=== PATIENT | female | born 1970 | race Caucasian/White ===

== ENCOUNTER → 2017-03-06 | Outpatient (CLI) | payer OTHER ==
[~2017-03-06] MED LIST: ARIP10 PO; Amaryl2 MG PO; CEPH500 PO; CHOL10002 PO; CITA20 PO; DEPRESSION; ERGO400 PO; FURO20 PO; FURO40 PO; GLIM4; GLIM4 PO; HCTZ; HYDACE25S PR; HYDCHL25 PO; INSDET100; Keflex500 MG PO; LABE100 PO; LABETOLOL; LISI20; LISI20 PO; LORA1 PO; METF500; METF500 PO; METF850 PO; METO100 PO; METO100ER PO; METO50 PO; METOPROLOL PO; MULVITMINE; MULVITMINE PO; OMEP40CA12 PO; ONDA4ODT MM; PRENATAL; PROM25 PO; QUET25 PO; QUETIAPINE FUM100 MG PO; RANI150 PO; RXHYDMOR2 PO; RXONDA4ODT MM; SITA100T2; SITA100T2 PO; SOLI5 PO; SOLIFENACIN; SUCR1 PO; TRIHYD253B PO; VANLAFAXINE PO; VENL150ER PO; VENL75ER PO; VITAMIN D PO; Vitamin D400 UNI1; Zantac150 MG PO; Zithromax250 MG PO; Zofran Odt4 MG SL
== END ==
LOC: LAB EV 11:50
DX: N30.00 Acute cystitis without hematuria (principal)
CPT/HCPCS: 87077; 87086; 87147; 87186

== ENCOUNTER → 2017-05-14 | Outpatient (CLI) | payer OTHER ==
[2017-05-16 04:21] LABS: Source CERVIX/ENDOCERV
== END ==
LOC: LAB 10:11
PROVIDERS: Nurse Practitioner Family
DX: Z01.419 Encounter for gynecological examination (general) (routine) without abnormal findings (principal)
CPT/HCPCS: G0145

== ENCOUNTER → 2017-06-30 | Outpatient (CLI) | payer OTHER | END | disposition home or self-care (01) | LOC: LAB EV 11:45 → LAB SHORT 11:45 | DX: N30.01 Acute cystitis with hematuria (principal) | CPT/HCPCS: 87077; 87086; 87186 ==

== ENCOUNTER → 2017-08-18 | Outpatient (CLI) | payer OTHER | LOC: LAB SHORT 14:20 → LAB EV 14:20 | DX: R30.0 Dysuria (principal) | CPT/HCPCS: 87086 ==

== ENCOUNTER 2018-04-22 11:44 | Day surgery (SDC) | payer OTHER ==
[~2018-04-22] VITALS: Ht 170.2 cm; Wt 161.5 kg
[~2018-04-22 11:44] MED LIST changes: +QUET100 PO
--- NOTE | 2018-04-22 12:26 | NUR ---
Ambulatory in Day SurgeryPatient states colon prep results clear. History, Chart, Medications and Allergies reviewed before start of procedure.Lungs clear T/O to Auscultation. Patient confirms NPO status and agrees with scheduled surgery. Patient States Post-Procedure ride home has been arranged.
--- NOTE | 2018-04-22 13:13 | NUR ---
04/22/18 1313 Mikhail Hernandez 3-LEAD EKG REVIEWED WITH PHYSICIAN PRIOR TO START OF PROCEDURE.Patient to ENDO 1. History, Chart, Medications and Allergies reviewed before start of procedure. MONITOR INTACT WITH CONTINUOUS PULSE OXIMETRY AND INTERMITTENT BP. O2 VIA N/C INTACT THROUGHOUT SEDATION/PROCEDURE. See Anesthesia record
--- NOTE | 2018-04-22 13:59 | NUR ---
PT TO STEP. SLEEPY, WAKES TO VOICE. DENIES PAIN.
[2018-05-01 15:11] LABS: Performing Lab SYMBIODX; Test Name TISSUE BLOCK
== END 2018-04-22 22:37 | disposition home or self-care (01) ==
LOC: ORSCMMR 11:44 → ORD 13:00 → ORSCMMR 13:00
PROVIDERS: Internal Medicine Gastroenterology
PROC: 0DBN8ZX Excision of Sigmoid Colon, Via Natural or Artificial Opening Endoscopic, Diagnostic (ICD-10-PCS; principal; 2018-04-22 13:00)
PROC: 0DBK8ZX Excision of Ascending Colon, Via Natural or Artificial Opening Endoscopic, Diagnostic (ICD-10-PCS; principal; 2018-04-22 13:00)
DX: Z80.0 Family history of malignant neoplasm of digestive organs (principal); C18.7 Malignant neoplasm of sigmoid colon; D12.2 Benign neoplasm of ascending colon; K64.8 Other hemorrhoids; K64.4 Residual hemorrhoidal skin tags; I10 Essential (primary) hypertension; E11.9 Type 2 diabetes mellitus without complications; E66.01 Morbid (severe) obesity due to excess calories; Z68.43 Body mass index [BMI] 50.0-59.9, adult; Z79.899 Other long term (current) drug therapy
CPT/HCPCS: 82947; 88305; J7120

== ENCOUNTER 2018-05-14 11:57 | Day surgery (SDC) | payer OTHER ==
[~2018-05-14] VITALS: Ht 170.2 cm; Wt 160.6 kg
--- NOTE | 2018-05-14 12:50 | NUR ---
Ambulatory in Day Surgery History, Chart, Medications and Allergies reviewed before start of procedure.Patient confirms NPO status and agrees with scheduled surgery. Lungs clear T/O to Auscultation.
--- NOTE | 2018-05-14 13:50 | NUR ---
05/14/18 1350 Ana Lilia Brewer History, Chart, Medications and Allergies reviewed before start of procedure. PATIENT CONFIRMS NPO STATUS AND AGREES WITH SCHEDULED PROCEDURE. MONITOR INTACT WITH CONTINUOUS PULSE OXIMETRY AND INTERMITTENT BP. O2 VIA N/C INTACT THROUGHOUT SEDATION/PROCEDURE. 3-LEAD EKG REVIEWED WITH PHYSICIAN PRIOR TO START OF PROCEDURE. DR. PEÑA PROVIDING MAC.
--- NOTE | 2018-05-14 14:37 | NUR ---
RECIEVED PATIENT FROM ORD.BAB PATIENT S VSS SLEEPING FAMILY AT BEDSIDE
--- NOTE | 2018-05-14 15:12 | NUR ---
Discharge instructions reviewed with patient. Patient verbalizes understanding. Copy given to patient to take home. Patient States Post-Procedure ride home has been arranged. Discharged via wheelchair to private car for ride home. OPPORTUNITY TO ASK ANY QUESTIONS WHEN GOING OVER DISHCARGE INSTRUCTIONS SAJI HAD NO QUESTIONS.
== END 2018-05-14 12:00 | disposition home or self-care (01) ==
LOC: ORSCMMR 11:57
PROVIDERS: Surgery
PROC: 0DBN8ZX Excision of Sigmoid Colon, Via Natural or Artificial Opening Endoscopic, Diagnostic (ICD-10-PCS; principal; 2018-05-14 13:30)
PROC: 3E0H8GC Introduction of Other Therapeutic Substance into Lower GI, Via Natural or Artificial Opening Endoscopic (ICD-10-PCS; principal; 2018-05-14 13:30)
DX: C18.7 Malignant neoplasm of sigmoid colon (principal); K63.5 Polyp of colon; E66.01 Morbid (severe) obesity due to excess calories; Z68.43 Body mass index [BMI] 50.0-59.9, adult; E11.9 Type 2 diabetes mellitus without complications; I10 Essential (primary) hypertension; F32.9 Major depressive disorder, single episode, unspecified; Z79.84 Long term (current) use of oral hypoglycemic drugs; Z79.899 Other long term (current) drug therapy
CPT/HCPCS: 82947; 88305; J7120

== ENCOUNTER 2018-07-23 19:31 | Emergency (ER) | payer OTHER ==
[~2018-07-23] VITALS: Ht 170.2 cm; Wt 163.3 kg
[2018-07-23 20:20] LABS: BASOPHILS ABSOLUTE AUTO 0.09 K/mm3 (0.00-0.23); BASOPHILS PERCENT AUTO 1 % (0-2); EOSINOPHILS ABSOLUTE AUTO 0.25 K/mm3 (0.00-0.68); EOSINOPHILS PERCENT AUTO 2 % (0-6); Hematocrit 44.8 % (33.0-51.0); Hemoglobin 13.9 g/dL (11.5-16.0); IMMATURE GRAN ABSOLUTE AUTO 0.14 K/mm3 (0.00-0.10); IMMATURE GRAN PERCENT AUTO 1 % (0-1); LYMPHOCYTES ABSOLUTE AUTO 3.19 K/mm3 (0.84-5.20); LYMPHOCYTES PERCENT AUTO 27 % (21-46); MONOCYTES ABSOLUTE AUTO 0.99 K/mm3 (0.16-1.47); MONOCYTES PERCENT AUTO 8 % (4-13); Mean Corpuscular Volume 84 fL (80-100); Mean Platelet Volume 9.5 fL (9.1-12.4); NEUTROPHILS ABSOLUTE AUTO 7.08 K/mm3 (1.96-9.15); NEUTROPHILS PERCENT AUTO 60 % (41-73); Platelet Count 310 K/mm3 (150-400); RDW Coefficient Variation 13.5 % (11.7-14.2); RDW Standard Deviation 41.6 fL (35.1-46.3); Red Blood Cell Count 5.34 M/mm3 (3.80-5.20); White Blood Cell Count 11.74 K/mm3 (4.00-11.30)
[2018-07-23 20:44] LABS: Alanine Aminotransfer (ALT/SGP 56 U/L (12-78); Albumin, Blood 3.5 g/dL (3.4-5.0); Albumin/Globulin Ratio 0.8 (0.8-1.8); Alk Phos 99 U/L (50-136); Anion Gap 11 mmol/L (6-16); Aspartate Aminotrans (AST/SGOT 42 U/L (12-37); Bilirubin, Total 0.3 mg/dL (0.1-1.0); Blood Urea Nitrogen 10 mg/dL (8-24); Bun/Creatinine Ratio 17.9 (12.0-20.0); CO2, Blood 22 mmol/L (21-32); Calcium, Blood 8.8 mg/dL (8.5-10.1); Chloride, Blood 104 mmol/L (98-108); Creatinine, Blood 0.56 mg/dL (0.40-1.00); Globulin, Blood 4.4 g/dL (2.2-4.0); Glomerular Filtration Rate >60 (60-); Glucose, Blood 306 mg/dL (70-99); Potassium, Blood 4.2 mmol/L (3.5-5.5); Sodium, Blood 137 mmol/L (136-145); Total Protein, Blood 7.9 g/dL (6.4-8.2)
[2018-07-23 20:47] LABS: Source, Urine Clean Catch
[2018-07-23 20:54] LABS: Appearance, Urine Clear (Clear); Bilirubin, Urine Neg (Neg); Blood, Urine 2+ (Neg); Color, Urine Yellow (P-Yellow); Glucose Qualitative, Urine 4+ (Neg); Ketones, Urine 1+ (Neg); Leukocyte Esterase, Urine 1+ (Neg); Nitrite, Urine Neg (Neg); Protein, Urine 3+ (Neg); Specific Gravity, Urine 1.025 (1.003-1.022); Urobilinogen, Urine NORM (Normal)
[2018-07-23 20:55] LABS: Bacteria Many /hpf; Red Blood Cells, Urine 0-2 /hpf (0-2); Squamous Epithelial Cells Many /hpf (Few)
[2018-07-23 20:56] LABS: Mucus Light (0-Heavy)
[2018-07-23] MEDS ORDERED: METF500C PO (23:07)
[2018-07-23] MEDS ORDERED: LEVFLO500 PO (23:07)
[2018-07-23] MEDS ORDERED: Bupropion Xl150 MG PO (23:07)
== END 2018-07-24 01:32 | disposition home or self-care (01) ==
LOC: ER 19:31
PROVIDERS: Physician Assistant
DX: N39.0 Urinary tract infection, site not specified (principal); I10 Essential (primary) hypertension; Z88.8 Allergy status to other drugs, medicaments and biological substances; Z79.899 Other long term (current) drug therapy
CPT/HCPCS: 36415; 80053; 81001; 85025; 87086; 96374; 96375; 99284-25; A9270-GY; J0696; J1170; J7030

== ENCOUNTER 2018-11-19 11:57 | Day surgery (SDC) | payer OTHER ==
[~2018-11-19] VITALS: Ht 170.2 cm; Wt 158.0 kg
[~2018-11-19 11:57] MED LIST changes: +Amaryl4 MG PO; +Bupropion Xl150 MG PO; +LEVFLO500 PO; +METF500C PO
--- NOTE | 2018-11-19 13:37 | NUR ---
11/19/18 1332 Hector Salamanca History, Chart, Medications and Allergies reviewed before start of procedure.MONITOR INTACT WITH CONTINUOUS PULSE OXIMETRY AND INTERMITTENT BP.3-LEAD EKG REVIEWED WITH PHYSICIAN PRIOR TO START OF PROCEDURE.O2 VIA N/C INTACT THROUGHOUT SEDATION/PROCEDURE. Patient confirms NPO status and agrees with scheduled surgery.See Anesthesia record.
--- NOTE | 2018-11-19 14:29 | NUR ---
Patient up to Ambulate independently. Gait steady. Discharge instructions reviewed with patient. Patient verbalizes understanding. Copy given to patient to take home. Patient States Post-Procedure ride home has been arranged. Discharged via wheelchair to private car for ride home.
== END 2018-11-19 14:33 | disposition home or self-care (01) ==
LOC: ORSCMMR 11:57
PROVIDERS: Internal Medicine Gastroenterology
PROC: 0DBN8ZX Excision of Sigmoid Colon, Via Natural or Artificial Opening Endoscopic, Diagnostic (ICD-10-PCS; principal; 2018-11-19 13:15)
DX: Z85.038 Personal history of other malignant neoplasm of large intestine (principal); D12.5 Benign neoplasm of sigmoid colon; E11.9 Type 2 diabetes mellitus without complications; F32.9 Major depressive disorder, single episode, unspecified; I10 Essential (primary) hypertension; E66.01 Morbid (severe) obesity due to excess calories; Z68.43 Body mass index [BMI] 50.0-59.9, adult; Z79.899 Other long term (current) drug therapy
CPT/HCPCS: 82947; 88305; J2704; J7120

== ENCOUNTER 2020-12-03 12:57 | Inpatient (IN) | payer OTHER ==
[~2020-12-03] VITALS: Ht 170.2 cm; Wt 156.4 kg
[~2020-12-03 12:57] MED LIST changes: +ALPR.25 PO; +BASAGLAR K100 UNIT/6 SC; +DULO30 PO; +MYRBETRIQ25 MG PO; +MYRBETRIQ50 MG PO; +NYST237S MT; +PIOG15 PO; +VITAMIN D310 MC4 PO; +Xylocaine 2% In20 ML INJ
[2020-12-03 13:36] LABS: Hematocrit 43.2 % (33.0-51.0); Hemoglobin 14.2 g/dL (11.5-16.0); Mean Corpuscular HGB 28.7 pg (26.0-34.0); Mean Corpuscular HGB Conc 32.9 g/dL (31.5-36.5); Mean Corpuscular Volume 87 fL (80-100); Mean Platelet Volume 10.2 fL (9.1-12.4); Platelet Count 170 K/mm3 (150-400); RDW Coefficient Variation 14.1 % (11.7-14.2); RDW Standard Deviation 45.3 fL (35.1-46.3); Red Blood Cell Count 4.94 M/mm3 (3.80-5.20); White Blood Cell Count 8.16 K/mm3 (4.00-11.30)
[2020-12-03 13:53] LABS: Alanine Aminotransfer (ALT/SGP 27 U/L (12-78); Albumin, Blood 2.6 g/dL (3.4-5.0); Albumin/Globulin Ratio 0.5 (0.8-1.8); Alk Phos 56 U/L (50-136); Anion Gap 8 mmol/L (6-16); Aspartate Aminotrans (AST/SGOT 25 U/L (12-37); Bilirubin, Total 0.4 mg/dL (0.1-1.0); Blood Urea Nitrogen 18 mg/dL (8-24); CO2, Blood 25 mmol/L (21-32); Calcium, Blood 9.1 mg/dL (8.5-10.1); Chloride, Blood 101 mmol/L (98-108); Creatinine, Blood 0.78 mg/dL (0.40-1.00); Globulin, Blood 5.2 g/dL (2.2-4.0); Glomerular Filtration Rate >60 (60-); Glucose, Blood 335 mg/dL (70-99); Sodium, Blood 134 mmol/L (136-145); Total Protein, Blood 7.8 g/dL (6.4-8.2); Troponin I <0.015 ng/mL (0.000-0.040)
[2020-12-03 13:58] LABS: BAND PERCENT MAN 5 % (0-8); BASOPHILS PERCENT MAN 0 % (0-2); EOSINOPHILS PERCENT MAN 0 % (0-6); LYMPHOCYTES % ATYPICAL MANUAL 2 % (0-0); LYMPHOCYTES ABSOLUTE MAN 0.65 K/mm3 (0.84-5.20); LYMPHOCYTES PERCENT MAN 6 % (21-46); MONOCYTES ABSOLUTE MAN 0.73 K/mm3 (0.16-1.47); MONOCYTES PERCENT MAN 9 % (4-13); NEUTROPHILS ABSOLUTE MAN 6.77 K/mm3 (1.96-9.15); SEG NEUTROPHILS PERCENT MAN 78 % (41-73); TOTAL CELLS COUNTED 100
[2020-12-03 16:23] LABS: Source, Urine Catheter
[2020-12-03 16:25] LABS: Appearance, Urine Clear (Clear); Bilirubin, Urine Neg (Neg); Blood, Urine 1+ (Neg); Color, Urine Yellow (P-Yellow); Glucose Qualitative, Urine 4+ (Neg); Ketones, Urine 3+ (Neg); Leukocyte Esterase, Urine Neg (Neg); Nitrite, Urine Neg (Neg); Protein, Urine 3+ (Neg); Specific Gravity, Urine 1.015 (1.003-1.022); Urobilinogen, Urine NORM (Normal)
[2020-12-03 16:34] LABS: Bacteria Few /hpf; WBC Cast Rare /lpf (0)
[2020-12-03 16:35] LABS: Squamous Epithelial Cells Few /hpf (Few)
[2020-12-03 17:45] LABS: Ferritin, Serum 324 ng/mL (8-252); Lactate Dehydrogenase (Ld),Bld 346 U/L (100-240)
--- NOTE | 2020-12-03 18:48 | NUR ---
PATIENT ADMITTED TO ICU 8 WITH 15L NRB MASK IN PLACE, SATURATION 85%. PATIENT IS AWAKE, A&O, FLUSHED IN FACE, STATES "IM HOT". AFEBRILE 98.7 TEMP. LUNGS CLEAR ANTERIORLY, DECREASE BASES. RESPIRATORY HERE TO PLACE PATIENT ON HIGH FLOW, SETTINGS 65L/MIN WITH FIO2 100%, SATS 92-95%. DENIES NO SOB AT REST. VERY TIRED, HARD TO KEEP EYES OPEN. ABDOMEN LARGE/ROUND WITH BT'S. MEADE IN PLACE, PATENT WITH MARTHA COLOR. X2 PIV SITES 20G LAC AND 18G LEFT HAND. BP STABLE, RESP. RATE MID 40'S. DR CM HERE TO SEE PATIENT. WILL REPORT OFF TO NOC SHIFT.
--- NOTE | 2020-12-03 20:25 | NUR ---
ASSUMED CARE PATIENT LYING IN BED W/ DR. CM AT BEDSIDE TALKING WITH PATIENT. HFT IN PLACE @ 65L AND 90% FIO2 W/ SPO2 GREATER THAN 90% AND RR 30'S-40'S. UPON ENTERING ROOM PATIETN TRACKS TO SOUND AND IS A&O X 4. NO INFUSIONS RUNNING AT THIS TIME; 20G TO LT AC AND 22G TO LT HAND. MEADE PATENT AND DRAINING TO GRAVITY.
--- NOTE | 2020-12-03 21:52 | NUR ---
SISTER SWETAH CALLED PATIENT'S SISTER SWETHA CALLED TO PASS ON A MESSAGE. WHEN PATIENT WAS TOLD OF THIS, SHE STATED "OK, BUT I DON'T WANT MY SISTER TO HAVE ANY INFORMATION ON ME". REITERATED THAT SINCE SHE IS NOT ON THE CONSENT FOR RELEASE OF INFORMATION, WE WILL NOT BE RELEASING ANY INFORMATION REGARDING THE PATIENT TO HER.
[2020-12-04 04:03] LABS: BASOPHILS ABSOLUTE AUTO 0.01 K/mm3 (0.00-0.23); BASOPHILS PERCENT AUTO 0 % (0-2); EOSINOPHILS PERCENT AUTO 0 % (0-6); Hematocrit 41.9 % (33.0-51.0); Hemoglobin 13.6 g/dL (11.5-16.0); Mean Corpuscular HGB 28.6 pg (26.0-34.0); Mean Corpuscular HGB Conc 32.5 g/dL (31.5-36.5); Mean Corpuscular Volume 88 fL (80-100); Mean Platelet Volume 10.4 fL (9.1-12.4); Platelet Count 170 K/mm3 (150-400); RDW Coefficient Variation 14.2 % (11.7-14.2); Red Blood Cell Count 4.76 M/mm3 (3.80-5.20); White Blood Cell Count 5.84 K/mm3 (4.00-11.30)
[2020-12-04 04:10] LABS: IMMATURE GRAN ABSOLUTE AUTO 0.04 K/mm3 (0.00-0.10); IMMATURE GRAN PERCENT AUTO 1 % (0-1); LYMPHOCYTES PERCENT AUTO 10 % (21-46); MONOCYTES ABSOLUTE AUTO 0.43 K/mm3 (0.16-1.47); MONOCYTES PERCENT AUTO 7 % (4-13); NEUTROPHILS ABSOLUTE AUTO 4.76 K/mm3 (1.96-9.15); NEUTROPHILS PERCENT AUTO 81 % (41-73)
[2020-12-04 04:28] LABS: Anion Gap 13 mmol/L (6-16); Blood Urea Nitrogen 18 mg/dL (8-24); Bun/Creatinine Ratio 30.4 (12.0-20.0); CO2, Blood 22 mmol/L (21-32); Calcium, Blood 8.9 mg/dL (8.5-10.1); Chloride, Blood 102 mmol/L (98-108); Creatinine, Blood 0.59 mg/dL (0.40-1.00); Glomerular Filtration Rate >60 (60-); Glucose, Blood 346 mg/dL (70-99); Magnesium, Blood 2.2 mg/dL (1.6-2.4); Potassium, Blood 3.9 mmol/L (3.5-5.5); Sodium, Blood 137 mmol/L (136-145)
--- NOTE | 2020-12-04 07:06 | NUR ---
SHIFT SUMMARY PATIENT REMAINED ON HFT @ 65LPM AND 90-100% FIO2; CURRENTLY AT 95% FIO2. PATIENT UNABLE TO TOLERATE PRONING; BUT AGREEABLE TO HIGH SIDE REPOSITIONING. ABLE TO REPOSITION SELF WITH MINIMAL HELP FROM STAFF AND GUIDANCE. WHEN ON HIGH SIDES SPO2 REMAINES ABOVE 90%, BUT WHEN LAYING ON BACK PATIENT DESATS TO 88-90%. MEADE REMAINED PATENT W/ YELLOW CLEAR URINE OUTPUT. PATIENT REMAINED NPO T/O SHIFT EXCEPT FOR SIPS OF WATER. CBG REMAINED ELEVATED ABOVE 300 AND COVERED W/ LOW SLIDING SCALE INSULIN. REPORT GIVEN TO KRYSTINA SÁNCHEZ.
--- NOTE | 2020-12-04 10:22 | NUR ---
ADMIT: 12/03/20 DISCHARGE: TBD DX: COVID-19 CC: Monique HOLDER RESIDENCE: [facility] - [address] [place] [address]. [id number] NEXT OF KIN/CONTACTS: WILDA TRACEY, SPOUSE / PARTNER, [id number] CHELSY TRACEY, CHILD, [id number] PRIOR TO ADMIT - DME: OXYGEN 11/30/20, DM SUPPLIES, URINARY SUPPLIES, BP KIT, COMPRESSION STOCKINGS CCM: NONE HHC/HOSPICE: NONE
--- NOTE | 2020-12-04 18:25 | NUR ---
SHIFT SUMMARY: PT CONTINUES A&O AND ABLE TO MAKE NEEDS KNOWN T/OUT SHIFT. PT MAINTAINING O2 SATS >90%, CONTINUES ON HIFLO AT 65L AND 90% FIO2. PT DID TOLERATE CPAP FOR APPROX 2 HOURS TODAY WITH GOAL TO SLEEP WITH CPAP TONIGHT. PT ALSO ATTEMPTED TO PRONE, TOLERATED FOR APPROX 30-45 MINS THEN PREFERS TO LAY ON HER SIDES OR SUPINE, AIDING W/REPOSITIONING ABLE. SR CONTINUES ON MONITOR. PT MEDICATED ONCE FOR NAUSEA. INDWELLING MEADE CATHETER CONTINUES TO DRAIN CLEAR DARK YELLOW URINE TO GRAVITY. BLOOD SUGARS CONTINUE TO BE ELEVATED, SLIDING SCALE WERE CHANGED THIS AM TO HIGH CORRECTION AND LONG LASTING INSULIN CHANGED TO BID TREATMENT. PT'S MOST RECENT BLOOD SUGAR OF 367 WAS COVERED PER PROTOCOL, DR RUIZ CONSULTED, NO NEW ORDERS. AT THIS TIME, PT SITTING UP IN BED WITH FAMILY VISITING THROUGH THE EXTERIOR WINDOW. WILL CONTINUE TO MONITOR AND TREAT ACCORDINGLY UNTIL CHANGE OF SHIFT.
--- NOTE | 2020-12-04 19:00 | NUR ---
PATIENT REPORT RECEIVED FROM [facility] PATIENT AAOX4 PATIENT ON BIPAP NSR NOTED IN THE MONITOR WILL TO CONTINUED TO MONITOR
--- NOTE | 2020-12-05 07:15 | NUR ---
DR. GERARDO UPDATED ON PATIENT STATUS. INFORMED ABOUT HIGH BLOOD SUGARS. INFORMED THAT NO BM IN 3 DAYS AND NO BOWEL CARE. STATED SHE WOULD PUT ORDERS IN FOR BOWEL CARE.
--- NOTE | 2020-12-05 09:00 | NUR ---
SHIFT ASSESSMENT PATIENT ALERT AND ORIENTED X 4, AFEBRILE. PATIENT DENIES PAIN. PATIENT WEAK BUT ABLE TO MOVE ALL EXTREMITIES. PATIENT IS SCARED AND ANXIOUS AT TIMES. PATIENT HAS HAD SEVERAL OTHER FAMILY MEMBERS VERY SICK FROM COVID. LUNG SOUNDS DIMINISHED THROUGHOUT. PATIENT ON CPAP 12 AND 80% FIO2. PATIENT PLACED ON AIRVO 65 L AND 100% FIO2. PATIENT DID WELL WITH TAKING PILLS. PATIENT DESATTED TO LOWEST OF 78% ON AIRVO WITH EXTERION AND COUGHING. PATIENT HAS DRY COUGH MOSTLY BUT DOES OCCASIONALLY PRODUCE SMALL AMOUNTS OF THICK, PALE YELLOW SPUTUM. PATIENT IN SR, HR 70S TO 80S. SBP LOW 100S TO 150S. PATIENT CHANGED FROM ADA DIET TO FULL LIQUID/ ADA TO TRY AND HELP WITH DESATTING AND INCREASED WOB WITH EATING. MEADE DRAINING DARK YELLOW/ GREEN COLORED URINE. COCCYX REDDENED. IVS FLUSHED AND SALINE LOCKED. BED LOW, CALL LIGHT IN REACH. WILL CONTINUE TO MONITOR PATIENT FREQUENTLY THROUGHOUT SHIFT.
--- NOTE | 2020-12-05 12:40 | NUR ---
PATIENT AFEBRILE. HR 70S TO 90S. SBP 120S TO 130S. RR IN THE 30S. PATIENT PLACED ON AIRVO FOR LUNCH BUT DESATTED TO HIGH 70S WITH EXERTION AGAIN AND PLACED BACK ON BIPAP. BLOOD SUGAR 357; COVERAGE GIVEN. NO OTHER ACUTE CHANGES TO NOTE ON AT THIS TIME. WILL CONTINUE TO MONITOR.
--- NOTE | 2020-12-05 16:36 | NUR ---
Per chart review and visit with pt. this am, not yet appropriate for transfer from ICU. On Airvo. FiO2 80. Pt. receiving Lovenox 80 mg BID currently. Pt. has strong family support and was independent prior to admit. DM not well controlled prior to admit. Disposition pending improvement in condition and PT/OT eval. Ideally, pt. will return home with HHC and family support. Anticipate need at time of discharge to include: PT/OT eval, HHC, home O2 eval, Elisalis/Yirelto samples, potentially visit with Dr. Georges for DM management, hospital F/U within 5-7 days post discharge.
--- NOTE | 2020-12-05 16:45 | NUR ---
PATIENT AFEBRILE. DENIES PAIN. HR 80S TO 90S. SBP 1-TEENS TO 130S. PATIENT REMAINS ON SAME CPAP AND AIRVO SETTINGS. RR 30S TO 40S. DR. HOPE AWARE. PATIENT GIVEN COMPLETE BED BATH. NO OTHER ACUTE CHANGES TO NOTE ON AT THIS TIME. WILL CONTINUE TO MONITOR.
--- NOTE | 2020-12-05 18:37 | NUR ---
SHIFT SUMMARY PATIENT REMAINED ALERT AND ORIENTED X 4. AFEBRILE. PATIENT ANXIOUS ONLY OT. PRN ATIVAN GIVEN AND PATIENT REPORTED RELIEF. PATIENT HAD NO COMPLAINTS OF PAIN THIS SHIFT. PATIENT REMAINS WEAK BUT ABLE TO MOVE ALL EXTREMITIES AND HELP TO REPOSITION IN BED. PRN PRECEDEX ADDED TO EMAR IN CASE PATIENT UNABLE TO TAKE PO AND IV ATIVAN NOT HELPING WITH ANXIETY. LUNGS REMAINED DIMINISHED THROUGHOUT. PATIENT REMAINED MOSTLY ON CPAP OF 12 AND 80%-90% FIO2 AND HAD MEAL BREAKS ON AIRVO AT 65 L AND 100% FIO2. PATIENT DID DESAT TO HIGH 70S TO LOW 80S WITH EXERTION SO DID NOT GET TO REMAIN ON AIRVO FOR EXTENDED PERIODS. PATIENT MOSTLY HAD DRY COUGH BUT DID COUGH UP SMALL AMOUNT OF THICK, PALE YELLOW SPUTUM A COUPLE OF TIMES. PATIENT REMAINED IN SR, HR 70S TO 90S. SBP LOW 100S TO 150S. NO BM THIS SHIFT. PATIENT ATE A COUPLE BITES OF BREAKFAST AND ATE A LITTLE MORE AT LUNCH AND DINNER. MEADE DRAINED 2750 MLS OF DARK YELLOW/ GREEN COLORED URINE. NS INFUSING TKO. BLOOD SUGARS CONTINUE TO RUN HIGH IN 300S TO 400S. LONG ACTING INSULIN DOSE INCREASED THIS SHIFT. PATIENT RECEIVED COMPLETE BED BATH. PATIENT APPEARS COMFORTABLE AT THIS TIME. BED LOW, CALL LIGHT IN REACH. REPORT WILL [facility] MANAGER NURSE SHORTLY.
--- NOTE | 2020-12-05 19:20 | NUR ---
PATIENT REPORT RECEIVED FROM [facility] PATIENT AAOX4 PATIENT ON BIPAP NSR NOTED IN THE MONITOR WILL TO CONTINUED TO MONITOR
--- NOTE | 2020-12-05 21:45 | NUR ---
PATIENT'S FAMILY CALLED (MOTHER) THEY ARE CONCERN ABOUT DO NOT ADMINISTERED ANOTHER DOSIS OF RENDESIVIR. PATIENT REFUSE RENDESIVIR TREATMENT, CHARGE NURSE MADE AWARE (MARY KATE). WILL CONTINUED TO MONITOR
[2020-12-06 03:40] LABS: BASOPHILS ABSOLUTE AUTO 0.02 K/mm3 (0.00-0.23); BASOPHILS PERCENT AUTO 0 % (0-2); EOSINOPHILS PERCENT AUTO 0 % (0-6); Hemoglobin 13.9 g/dL (11.5-16.0); Mean Corpuscular HGB 28.5 pg (26.0-34.0); Mean Corpuscular HGB Conc 32.3 g/dL (31.5-36.5); Mean Corpuscular Volume 88 fL (80-100); Platelet Count 249 K/mm3 (150-400); RDW Coefficient Variation 14.2 % (11.7-14.2); RDW Standard Deviation 45.8 fL (35.1-46.3); Red Blood Cell Count 4.88 M/mm3 (3.80-5.20)
[2020-12-06 03:50] LABS: IMMATURE GRAN ABSOLUTE AUTO 0.05 K/mm3 (0.00-0.10); IMMATURE GRAN PERCENT AUTO 1 % (0-1); LYMPHOCYTES ABSOLUTE AUTO 0.73 K/mm3 (0.84-5.20); LYMPHOCYTES PERCENT AUTO 11 % (21-46); MONOCYTES ABSOLUTE AUTO 0.82 K/mm3 (0.16-1.47); MONOCYTES PERCENT AUTO 12 % (4-13); NEUTROPHILS ABSOLUTE AUTO 5.28 K/mm3 (1.96-9.15); NEUTROPHILS PERCENT AUTO 77 % (41-73)
[2020-12-06 04:12] LABS: Albumin, Blood 2.4 g/dL (3.4-5.0); Anion Gap 8 mmol/L (6-16); Blood Urea Nitrogen 26 mg/dL (8-24); Bun/Creatinine Ratio 45.7 (12.0-20.0); CO2, Blood 26 mmol/L (21-32); Calcium, Blood 9.7 mg/dL (8.5-10.1); Chloride, Blood 105 mmol/L (98-108); Creatinine, Blood 0.57 mg/dL (0.40-1.00); Ferritin, Serum 463 ng/mL (8-252); Glomerular Filtration Rate >60 (60-); Glucose, Blood 394 mg/dL (70-99); Magnesium, Blood 2.5 mg/dL (1.6-2.4); Phosphorus, Blood 3.5 mg/dL (2.5-4.9); Potassium, Blood 4.1 mmol/L (3.5-5.5); Sodium, Blood 139 mmol/L (136-145)
--- NOTE | 2020-12-06 09:02 | NUR ---
ASSUMED PT CARE AT 0700. PT A/OX4, PULLING OFF CPAP, PLACED ON AIRVO FOR COMFORT. PT DENIES ANY PAIN, CP, NV, NUMBNESS OR TINGLING. PT CALM. REPORTS THAT BREATHING FEELS SLIGHTLY IMPROVED SINCE YESTERDAY. PT ALSO REPORTS FATIGUE. MD AWARE OF HYPERGLYCEMIA, NEW ORDERS OBTAINED, LONG AND SHORT ACTING INSULIN GIVEN. VSS. PT PLACED BACK ON CPAP WHILE SLEEPING SHE DESATS.
--- NOTE | 2020-12-06 12:21 | NUR ---
per chart review with Dr. Sanchez, pt will need CPAP ordered when she discharges. Pt has history of KATELYN. There is no plan for d/c and pt could potentially be here for another week. ([email or web address], 12:21 PM)
--- NOTE | 2020-12-06 17:57 | NUR ---
PT A/OX4, VERY COOPERATIVE AND CALM THROUGHOUT SHIFT. PT REPORTS FEELING AN IMPROVEMENT IN HER BREATHING, ALTHOUGH SHE DOES APPEAR VERY FATIGUED AND SPENT THE MAJORITY OF THE DAY RESTING. LUNGS DIM, PT HAS HACKING COUGH THAT IS USUALLY DRY, OCASSIONALLY PRODUCTIVE OF THICK CREAMY SPUTUM. ABLE TO TITRATE PT DOWN ON AIRVO WHILE AWAKE TO 60L 80%, PT NOW ON BIPAP WHILE SLEEPING, 16/10 75%, SATS REMAIN 94% AND GREATER. PT ABLE TO TALK IN FULL SENTENCES WITHOUT DIFFICULTY, AND ASSIST WITH Q 2 HRS TURNS WITHOUT DESATURATION. DISCUSSED WITH MD SHRESTHA THAT PT CONTINUES TO BY HYPERGLYCEMIC (BG 364 AT 1600) DESPITE INCREASED DOSE OF LONG ACTING INSULIN, AND HIGH DOSE SSI. BG CHECKS CHANGED TO Q 4 HRS WITH SSI COVERAGE, PLAN TO TRANSITION TO INSULIN GTT IF HYPERGLYCEMIA PERSISTS. MD RUIZ SPOKE WITH PT AND PT'S MOM AT LENGTH REGARDING PTS CODE STATUS OF DNR, OKAY TO INTUBATE. PT AND MOM ABLE TO VERBALIZE UNDERSTANDING AT END OF CONVERSATION OF PTS CODE STATUS, AND VERIFY THAT YES, THAT IS WHAT SHE WANTS. PT TOLERATING FULL LIQUID DIET. GOOD UO. SKIN REMAINS INTACT TO COCCYX WITH FREQUENT REPOSITIONING.
--- NOTE | 2020-12-06 19:30 | NUR ---
PATIENT REPORT RECEIVED FROM [facility] PATIENT AAOX4 NSR NOTED IN THE MONITOR PATIENT ON HIG FLOW 60/70 % WILL TO CONTINUED TO VERNON
[2020-12-07 03:34] LABS: BASOPHILS ABSOLUTE AUTO 0.03 K/mm3 (0.00-0.23); BASOPHILS PERCENT AUTO 0 % (0-2); EOSINOPHILS PERCENT AUTO 0 % (0-6); Hematocrit 46.5 % (33.0-51.0); Hemoglobin 15.3 g/dL (11.5-16.0); Mean Corpuscular HGB 28.5 pg (26.0-34.0); Mean Corpuscular HGB Conc 32.9 g/dL (31.5-36.5); Mean Corpuscular Volume 87 fL (80-100); Mean Platelet Volume 9.6 fL (9.1-12.4); Platelet Count 288 K/mm3 (150-400); RDW Coefficient Variation 13.8 % (11.7-14.2); RDW Standard Deviation 44.1 fL (35.1-46.3); Red Blood Cell Count 5.36 M/mm3 (3.80-5.20); White Blood Cell Count 8.58 K/mm3 (4.00-11.30)
[2020-12-07 03:36] LABS: IMMATURE GRAN ABSOLUTE AUTO 0.22 K/mm3 (0.00-0.10); IMMATURE GRAN PERCENT AUTO 3 % (0-1); LYMPHOCYTES ABSOLUTE AUTO 0.85 K/mm3 (0.84-5.20); LYMPHOCYTES PERCENT AUTO 10 % (21-46); MONOCYTES PERCENT AUTO 12 % (4-13); NEUTROPHILS ABSOLUTE AUTO 6.48 K/mm3 (1.96-9.15); NEUTROPHILS PERCENT AUTO 76 % (41-73)
[2020-12-07 03:56] LABS: Albumin, Blood 2.6 g/dL (3.4-5.0); Anion Gap 8 mmol/L (6-16); Blood Urea Nitrogen 25 mg/dL (8-24); Bun/Creatinine Ratio 43.6 (12.0-20.0); CO2, Blood 26 mmol/L (21-32); Chloride, Blood 103 mmol/L (98-108); Creatinine, Blood 0.57 mg/dL (0.40-1.00); Glomerular Filtration Rate >60 (60-); Glucose, Blood 353 mg/dL (70-99); Magnesium, Blood 2.3 mg/dL (1.6-2.4); Phosphorus, Blood 3.7 mg/dL (2.5-4.9); Sodium, Blood 137 mmol/L (136-145)
--- NOTE | 2020-12-07 06:41 | NUR ---
PATIENT REPORT GIVEN TO THE AMBROSIO RN, PATIENR REMAIN IN STABLE CONDITONS.
--- NOTE | 2020-12-07 07:55 | NUR ---
ASSUMED PT CARE AT 0700. PT ON BIPAP 16 65% TOLERATING WELL, SATS 92% AND GREATER, PT APPEARS COMFORTABLE. SPOKE WITH MD BURDEN AND GERARDO REGARDING PT ONGOING HYPERGLYCEMIA, PLAN TO START PT ON INSULIN GTT THIS AM. RN ASKED IF PT COULD BE DEHYDRATED SECONDARY TO INCREASED H/H, PLAN TO ENCOURAGE PO FLUID INTAKE TODAY. PT CONTINUES TO BE A/OX4, COOPERATIVE, FATIGUED WITH GEN WEAKNESS. PLAN TO GET PT UP TO CHAIR TODAY.
--- NOTE | 2020-12-07 11:04 | NUR ---
Pt. remains in ICU. On AIRVO 16/10. FiO2 65. SPO2 mid-low 90s. Pt. receiving Lovenox 80 mg BID currently. Pt. has strong family support and was independent prior to admit. OHS and KATELYN of concern given patient's current condition. Pt. does not use CPAP at home despite need. Last sleep study ordered in 2018 and pt. did not complete. Plan to speak with care manager at [facility] regarding options for potential testing inpatient prior to discharge. Setting patient up with CPAP prior to discharge would be in her best interest if at all possible. DM not well controlled prior to admit. Disposition pending improvement in condition and PT/OT eval. Ideally, pt. will return home with HHC and family support. Anticipate need at time of discharge to include: PT/OT eval, HHC, home O2 eval, Elisalis/Yirelto samples, sleep study - CPAP, possible referral to Dr. Georges for ongoing DM management, hospital F/U within 5-7 days post discharge.
--- NOTE | 2020-12-07 17:45 | NUR ---
PT A/OX 4 THROUGHHOUT SHIFT, CALM AND COOPERATIVE. PT DENIES ANY INCREASING SOB, PAIN, NV, DISCOMFORT. PT AFEBRILE, ALTHOUGH C/O FEELING WARM AT TIMES. COOLING MEASURES IN PLACE. PT STARTED ON INSULIN GTT THIS MORNING SECONDARY TO ONGOING UNCONTROLLED HYPERGLYCEMIA. ABLE TO WEAN PT DOWN TO BIPAP SETTINGS 02/07, 45%; AIRVO 5OL 60% AT END OF SHIFT. PT MAINTAIN SATS 92% AND GREATER. CONTINUES TO EXPECTORATE MODERATE AMOUNT THICK PURVIS SECRETIONS. SR AND NORMOTENSIVE. PT TOLERATING ADA FL DIET WITHOUT ISSUE. GIVEN SUPPOSITORY TODAY SECONDARY TO NO BM SINCE 12/02. PT HAD BM AT END OF SHIFT. FC WITH APPROX 1 L MARTHA UO TODAY, ENCOURAGING PO FLUID INTAKE. SPOKE WITH MD CM AT 1500 SECONDARY TO PT BG CONTINUE TO BE 250-300 DESPITE INSULIN GTT TITRATED FROM 12 UNITS/HR TO 20/UNITS HR. SPOKE WITH MD OLIVIA AT 1630 INSULIN GTT AT 22 UNITS/HR, AND NO RECENT ELECTROLYTE LEVELS DRAWN. CMP ORDERED, INSTRUCTED TO CONTINUE TITRATING INSULIN GTT UP UNTIL BG LEVEL OF LESS THAN 180 ACHIEVED. PT UP TO CHAIR FOR 2.5 HOURS TODAY VIA CEILING LIFT. TOLERATED WELL. AWARE OF TRANSIENT AND MIGRATING ERYTHEMA TO EXTREMITIES. PLAN TO OPTIMIZE PT BG, DISCUSS DC FC TOMORROW NOW THAT PT ABLE TO TOLERATE ACTIVITY, GET OFF INSULIN GTT.
[2020-12-07 18:01] LABS: Alanine Aminotransfer (ALT/SGP 30 U/L (12-78); Albumin, Blood 2.7 g/dL (3.4-5.0); Albumin/Globulin Ratio 0.5 (0.8-1.8); Alk Phos 56 U/L (50-136); Anion Gap 7 mmol/L (6-16); Aspartate Aminotrans (AST/SGOT 26 U/L (12-37); Bilirubin, Total 0.4 mg/dL (0.1-1.0); Blood Urea Nitrogen 25 mg/dL (8-24); Bun/Creatinine Ratio 48.8 (12.0-20.0); CO2, Blood 28 mmol/L (21-32); Calcium, Blood 10.4 mg/dL (8.5-10.1); Chloride, Blood 105 mmol/L (98-108); Creatinine, Blood 0.51 mg/dL (0.40-1.00); Glomerular Filtration Rate >60 (60-); Glucose, Blood 233 mg/dL (70-99); Potassium, Blood 3.8 mmol/L (3.5-5.5); Sodium, Blood 140 mmol/L (136-145); Total Protein, Blood 7.7 g/dL (6.4-8.2)
--- NOTE | 2020-12-07 19:00 | NUR ---
1903 PATIENT REPORT RECEIVED FROM [facility] PATIENT AAOX4 NSR NOTED IN THE MONITOR PATIENT ON HF 50L 60% SKIN INTACT INSULIN DRIP 25 WILL TO CONTINUED TO MONITOR
--- NOTE | 2020-12-07 20:20 | NUR ---
2019 PATIENT WAS HYPOTENSIVE, 500 ML OF NS BOLUS WAS ADMINISTERED 2109 PATIENT IN STABLE CONDITIONS, BLOOD PRESSURE REMAIN STABLE MD FREEMAN CALLED
[2020-12-08 04:03] LABS: BASOPHILS ABSOLUTE AUTO 0.04 K/mm3 (0.00-0.23); BASOPHILS PERCENT AUTO 0 % (0-2); EOSINOPHILS PERCENT AUTO 0 % (0-6); Hematocrit 43.9 % (33.0-51.0); Hemoglobin 14.3 g/dL (11.5-16.0); IMMATURE GRAN ABSOLUTE AUTO 0.35 K/mm3 (0.00-0.10); IMMATURE GRAN PERCENT AUTO 4 % (0-1); LYMPHOCYTES ABSOLUTE AUTO 0.92 K/mm3 (0.84-5.20); LYMPHOCYTES PERCENT AUTO 9 % (21-46); MONOCYTES ABSOLUTE AUTO 1.27 K/mm3 (0.16-1.47); MONOCYTES PERCENT AUTO 13 % (4-13); Mean Corpuscular HGB 28.3 pg (26.0-34.0); Mean Corpuscular HGB Conc 32.6 g/dL (31.5-36.5); Mean Corpuscular Volume 87 fL (80-100); Mean Platelet Volume 9.7 fL (9.1-12.4); NEUTROPHILS ABSOLUTE AUTO 7.43 K/mm3 (1.96-9.15); NEUTROPHILS PERCENT AUTO 74 % (41-73); Platelet Count 279 K/mm3 (150-400); RDW Coefficient Variation 13.9 % (11.7-14.2); RDW Standard Deviation 44.8 fL (35.1-46.3); Red Blood Cell Count 5.05 M/mm3 (3.80-5.20); White Blood Cell Count 10.01 K/mm3 (4.00-11.30)
[2020-12-08 04:25] LABS: Albumin, Blood 2.4 g/dL (3.4-5.0); Anion Gap 5 mmol/L (6-16); Blood Urea Nitrogen 27 mg/dL (8-24); Bun/Creatinine Ratio 47.6 (12.0-20.0); CO2, Blood 28 mmol/L (21-32); Calcium, Blood 9.5 mg/dL (8.5-10.1); Chloride, Blood 106 mmol/L (98-108); Creatinine, Blood 0.57 mg/dL (0.40-1.00); Glomerular Filtration Rate >60 (60-); Glucose, Blood 187 mg/dL (70-99); Magnesium, Blood 2.1 mg/dL (1.6-2.4); Phosphorus, Blood 4.8 mg/dL (2.5-4.9); Potassium, Blood 4.2 mmol/L (3.5-5.5); Sodium, Blood 139 mmol/L (136-145)
--- NOTE | 2020-12-08 07:41 | NUR ---
[facility] Point of Care: Care assumed at 0700hr. Patient sleeping, easily roused to verbal stimuli. Alert and oriented x4. Denies pain, discomfort, SOB, or dyspnea. Currently on 11L per high-flow NC, spO2-93-94%, VSS. Peripheral IV's x2 patent and intact, but both are difficult to flush. Plan to insert Power-glide IV this morning and discontinue both peripheral IV's. Patient on insulin gtt at 15u/hr. Dr. Sanchez to room to assess patient this morning. Discussed current insulin dosing, blood glucose, and amount of insulin received in last 24hr. Dr. Sanchez instructed to stop IV insulin, and that he would write orders for subcu long-acting and sliding scale insulin. Castillo cath patent and intact, draining clear yellow urine. Call light in reach, makes needs known. Will continue to monitor.
--- NOTE | 2020-12-08 18:32 | NUR ---
Shift Summary: No significant changes throughout shift. Consulted with Dr. Sanchez multiple times r/t continued elevated blood glucose 330-350's despite increase in this mornings SC insulin. Received orders from Dr. Sanchez to maintain 24u prandial insulin and changed from AC/HS sliding scale coverage to q4hr sliding coverage. Patient continues to tolerate meals and fluids without difficulty. Castillo cath remains patent and intact, draining clear yellow urine. Peripheral IV's x2 to lt arm removed. Power-glide ST placed to ROBYN without difficulty. Denies pain or discomfort. Continues to deny dyspnea or SOB. SpO2 93-95% on 9-11L per high-flow NC. Able to assist and tolerate turns/cares in bed without difficulty. Call light in reach, makes needs known. Will continue to monitor until report to NOC shift RN.
--- NOTE | 2020-12-08 19:31 | NUR ---
ASSUMED CARE OF PT AT 1900, REPORT RECEIVED FROM MICHELLE FLAHERTY. PT AWAKE IN BED, ALERT AND ORIENTED. DENIES PAIN AND DYSPNEA AT THIS TIME. PT ON 9L HFNC, SPO2 91-92%. LUNGS CLEAR WITH DIM BASES. HR 90'S SINUS ON MONITOR. POWERGLIDE TO ROBYN CURRENTLY SALINE LOCKED. MEADE DRAINING TO GRAVITY. PT DENIES NEEDS AT THIS TIME. CALL LIGHT WITHIN REACH.
--- NOTE | 2020-12-09 06:03 | NUR ---
SHIFT SUMMARY PT REMAINS ALERT AND ORIENTED T/O SHIFT. DENIES PAIN OR SOB. LUNGS CLEAR WITH DIM BASES, CONTINUES ON 9L HFNC. SPO2 DECREASES TO 82-83% WHEN REPOSITIONING, QUICKLY RECOVERS WHEN SETTLED INTO BED. OCCASIONAL NONPRODUCTIVE COUGH. HR 70-80'S WITH OCCASIONAL PVC'S, SBP 100-115'S. TOLERATING FULL LIQUID DIET. REDNESS TO COCCYX NOTED, FOAM DRESSING IN PLACE. PT ABLE TO HELP WITH REPOSITIONING.
[2020-12-09 06:22] LABS: BASOPHILS ABSOLUTE AUTO 0.05 K/mm3 (0.00-0.23); BASOPHILS PERCENT AUTO 1 % (0-2); EOSINOPHILS ABSOLUTE AUTO 0.01 K/mm3 (0.00-0.68); EOSINOPHILS PERCENT AUTO 0 % (0-6); Hematocrit 44.3 % (33.0-51.0); Hemoglobin 14.5 g/dL (11.5-16.0); IMMATURE GRAN ABSOLUTE AUTO 0.33 K/mm3 (0.00-0.10); IMMATURE GRAN PERCENT AUTO 5 % (0-1); LYMPHOCYTES ABSOLUTE AUTO 0.79 K/mm3 (0.84-5.20); LYMPHOCYTES PERCENT AUTO 12 % (21-46); MONOCYTES ABSOLUTE AUTO 0.82 K/mm3 (0.16-1.47); MONOCYTES PERCENT AUTO 12 % (4-13); Mean Corpuscular HGB 28.3 pg (26.0-34.0); Mean Corpuscular HGB Conc 32.7 g/dL (31.5-36.5); Mean Corpuscular Volume 86 fL (80-100); Mean Platelet Volume 9.9 fL (9.1-12.4); NEUTROPHILS ABSOLUTE AUTO 4.77 K/mm3 (1.96-9.15); NEUTROPHILS PERCENT AUTO 71 % (41-73); Platelet Count 258 K/mm3 (150-400); RDW Coefficient Variation 13.6 % (11.7-14.2); RDW Standard Deviation 43.7 fL (35.1-46.3); Red Blood Cell Count 5.13 M/mm3 (3.80-5.20); White Blood Cell Count 6.77 K/mm3 (4.00-11.30)
[2020-12-09 06:37] LABS: Albumin, Blood 2.4 g/dL (3.4-5.0); Anion Gap 7 mmol/L (6-16); Blood Urea Nitrogen 25 mg/dL (8-24); Bun/Creatinine Ratio 47.6 (12.0-20.0); CO2, Blood 27 mmol/L (21-32); Calcium, Blood 9.7 mg/dL (8.5-10.1); Chloride, Blood 102 mmol/L (98-108); Creatinine, Blood 0.53 mg/dL (0.40-1.00); Glomerular Filtration Rate >60 (60-); Glucose, Blood 338 mg/dL (70-99); Magnesium, Blood 1.8 mg/dL (1.6-2.4); Phosphorus, Blood 5.5 mg/dL (2.5-4.9); Potassium, Blood 4.2 mmol/L (3.5-5.5); Sodium, Blood 136 mmol/L (136-145)
--- NOTE | 2020-12-09 08:30 | NUR ---
INITIAL ASSESSMENT PATIENT ALERT AND ORIENTED X 4, AFEBRILE. PATIENT WEAK BUT ABLE TO MOVE ALL EXTREMITIES AND TO HELP WITH REPOSITIONING IN BED. PATIENT DENIES PAIN. PATIENT SATTING 90% AND GREATER ON 9 L HF NC. LUNGS DIMINISHED IN LOWER LOBES, CRACKLES NOTED IN MICHAEL, AND EXPIRATORY WHEEZE NOTED IN RUL. PATIENT IN SR, HR IN THE 80S. SBP IN THE 1-TEENS. GI WNL. MEADE DRAINING DARK YELLOW URINE. SCATTERED BRUISES NOTED. COCCYX REDDENED. IV FLUSHED AND SALINE LOCKED; IS POSITIONAL. BED LOW, CALL LIGHT IN REACH. WILL CONTINUE TO MONITOR PATIENT FREQUENTLY THROUGHOUT SHIFT.
--- NOTE | 2020-12-09 12:00 | NUR ---
DR. HOPE INFORMED THAT PATIENT HAD 7 BEAT RUN OF ASYMPTOMATIC VTACH. NO ORDERS OBTAINED AT THIS TIME.
--- NOTE | 2020-12-09 12:00 | NUR ---
PATIENT AFEBRILE. HR AT 90. SBP IN THE 120S. PATIENT SATTING 90% AND GREATER ON 6 L NC. NO OTHER ACUTE CHANGES TO NOTE ON AT THIS TIME. WILL CONTINUE TO MONITOR.
--- NOTE | 2020-12-09 16:00 | NUR ---
PATIENT AFEBRILE. HR IN THE 80S. SBP IN THE 130S. PATIENT REMAINS ON 4 TO 6 L NC. PATIENT BACK IN BED. NO OTHER ACUTE CHANGES TO NOTE ON AT THIS TIME. WILL CONTINUE TO MONITOR.
--- NOTE | 2020-12-09 17:10 | NUR ---
SHIFT SUMMARY PATIENT REMAINED ALERT AND ORIENTED X 4, AFEBRILE. NO COMPLAINTS OF PAIN DURING SHIFT. PATIENT SMILING AND VERY PLEASANT. PATIENT DECREASED FROM 9 L HF NC TO 4 TO 6 L NC. PATIENT REMAINED IN SR, HR 80S TO 90S. SBP 1-TEENS TO 120S. PATIENT DID HAVE ASYMPTOMATIC 7 BEAT RUN OF VTACH THIS SHIFT. NO BM THIS SHIFT. DIET ADVANCED TO REGULAR/ ADA DIET THIS SHIFT. PATIENT TOLERATED WELL. MEADE DRAINED AQEQUATE AMOUNT OF DARK YELLOW COLORED URINE. NO CHANGES TO SKIN. PATIENT REPOSITIONED T/O SHIFT. PATIENT LIFTED TO RECLINER WITH CEILING LIFT. PATIENT WORKED WITH PT ONCE IN RECLINER. PATIENT RECEIVED 1 G MAG. BLOOD SUGARS RANGED FROM 279 TO 334. BED LOW, CALL LIGHT IN REACH. REPORT GIVEN TO ASSUMING NURSE.
--- NOTE | 2020-12-09 19:40 | NUR ---
ASSUMED CARE OF PT AT 1900, REPORT RECEIVED FROM SVETLANA FLAHERTY. PT RESTING IN BED, DENIES PAIN. ALERT AND ORIENTED. LUNGS CLEAR WITH DIM BASES, PT ON 6L HFNC SPO2 >90%. PT DENIES SOB, OCCASIONAL PRODUCTIVE COUGH. BT'S ACTIVE, ABD SOFT, DENIES PAIN WITH PALPATION. PT ABLE TO MOVE ALL EXTREMITIES, WEAKNESS NOTED T/O. WORKING WITH PT. MEADE PATENT AND DRAINING CLEAR YELLOW URINE TO GRAVITY. PT DENIES ANY NEEDS CURRENTLY. CALL LIGHT WITHIN REACH.
[2020-12-10 05:18] LABS: BASOPHILS ABSOLUTE AUTO 0.01 K/mm3 (0.00-0.23); BASOPHILS PERCENT AUTO 0 % (0-2); EOSINOPHILS ABSOLUTE AUTO 0.05 K/mm3 (0.00-0.68); EOSINOPHILS PERCENT AUTO 1 % (0-6); Hematocrit 44.9 % (33.0-51.0); Hemoglobin 14.6 g/dL (11.5-16.0); IMMATURE GRAN ABSOLUTE AUTO 0.64 K/mm3 (0.00-0.10); IMMATURE GRAN PERCENT AUTO 7 % (0-1); LYMPHOCYTES ABSOLUTE AUTO 0.93 K/mm3 (0.84-5.20); LYMPHOCYTES PERCENT AUTO 11 % (21-46); MONOCYTES ABSOLUTE AUTO 0.98 K/mm3 (0.16-1.47); MONOCYTES PERCENT AUTO 11 % (4-13); Mean Corpuscular HGB 28.2 pg (26.0-34.0); Mean Corpuscular HGB Conc 32.5 g/dL (31.5-36.5); Mean Corpuscular Volume 87 fL (80-100); NEUTROPHILS ABSOLUTE AUTO 6.09 K/mm3 (1.96-9.15); NEUTROPHILS PERCENT AUTO 70 % (41-73); Platelet Count 244 K/mm3 (150-400); RDW Coefficient Variation 13.7 % (11.7-14.2); RDW Standard Deviation 44.3 fL (35.1-46.3); Red Blood Cell Count 5.18 M/mm3 (3.80-5.20)
[2020-12-10 05:36] LABS: BAND PERCENT MAN 5 % (0-8); BASOPHILS PERCENT MAN 0 % (0-2); EOSINOPHILS ABSOLUTE MAN 0.08 K/mm3 (0.00-0.68); EOSINOPHILS PERCENT MAN 1 % (0-6); LYMPHOCYTES ABSOLUTE MAN 0.87 K/mm3 (0.84-5.20); LYMPHOCYTES PERCENT MAN 10 % (21-46); METAMYELOCYTE ABSOLUTE MAN 0.08 K/mm3 (0.00-0.00); METAMYELOCYTE PERCENT MAN 1 % (0-0); MONOCYTES ABSOLUTE MAN 0.87 K/mm3 (0.16-1.47); MONOCYTES PERCENT MAN 10 % (4-13); NEUTROPHILS ABSOLUTE MAN 6.78 K/mm3 (1.96-9.15); SEG NEUTROPHILS PERCENT MAN 73 % (41-73); TOTAL CELLS COUNTED 100
[2020-12-10 05:45] LABS: Albumin, Blood 2.4 g/dL (3.4-5.0); Anion Gap 4 mmol/L (6-16); Blood Urea Nitrogen 25 mg/dL (8-24); Bun/Creatinine Ratio 46.6 (12.0-20.0); CO2, Blood 30 mmol/L (21-32); Calcium, Blood 9.4 mg/dL (8.5-10.1); Chloride, Blood 100 mmol/L (98-108); Creatinine, Blood 0.54 mg/dL (0.40-1.00); Glomerular Filtration Rate >60 (60-); Glucose, Blood 283 mg/dL (70-99); Magnesium, Blood 1.8 mg/dL (1.6-2.4); Potassium, Blood 4.4 mmol/L (3.5-5.5); Sodium, Blood 134 mmol/L (136-145)
--- NOTE | 2020-12-10 06:11 | NUR ---
RN REPORT RECEIVED FROM THE NURSE IN ICU, WAS ADMITTED ON January. PATIENT TRANSFERED FROM ICU. AKSHAT IS ALERT AND ORIENTED X3. PATIENT DENIES PAIN OR ANY DISCOMFORT. PATIENT NOTED WITH SOME WEAKNESS, REMAINS ON BED REST. PATIENT WAS ADMITED FOR WORSENING SHORTNESS OF BREATH DUE TO COVID 19. MEADE CATHETER PATENT DRAINING CLEAR YELLOW URINE. PATIENT CONTINUES ON 02 AT 6L HIGH FLOW NC 02 IN THE 90s. PATIENT ON ADA DIET DUE TO DIABETES. AKSHAT HAS POWER GLIDE RIGHT UPPER ARM SALIN LOCKED. PATIENT'S SKIN IS INTACT, COCCYX AREA DRESSING IN PLACE. PATIENT'S LUNG SOUNDS CLEAR, BS+X4Q, LAST BM WAS ON THE 12/07. PATIENT IS ON BLOOD SUGAR X2 THIS SHIFT. PATIENT SLEPT ALL NIGHT NO ACUTE DISTRESS REPORTED. WILL CONTINUE TO MONITOR.
--- NOTE | 2020-12-10 18:15 | NUR ---
SHIFT SUMMARY PT AXO, PLEASANT AND COOPERATIVE WITH CARE. WORKED WITH PHYSICAL THERAPY THIS SHIFT, SEE NOTE. DESHAUN RMOANO'Radha THIS SHIFT, PT ABLE TO VOID IN BEDPAN. VITAL SIGNS STABLE. SEE CBG, MEDICATED PER EMAR. 94% ON 6L HFNC. PER PHYSICAL THERAPIST YANI Baez, PT DESAT TO 91% ON 6L WITH EXERTION. BED IN LOW POSITION, CALL LIGHT WITHIN REACH. MEPILEX TO COCCYX FOR PREVENTION.
[2020-12-11 05:27] LABS: Albumin, Blood 2.6 g/dL (3.4-5.0); Anion Gap 9 mmol/L (6-16); Blood Urea Nitrogen 30 mg/dL (8-24); Bun/Creatinine Ratio 48.4 (12.0-20.0); CO2, Blood 27 mmol/L (21-32); Calcium, Blood 9.7 mg/dL (8.5-10.1); Chloride, Blood 101 mmol/L (98-108); Creatinine, Blood 0.62 mg/dL (0.40-1.00); Glomerular Filtration Rate >60 (60-); Glucose, Blood 221 mg/dL (70-99); Magnesium, Blood 1.9 mg/dL (1.6-2.4); Phosphorus, Blood 5.8 mg/dL (2.5-4.9); Potassium, Blood 4.5 mmol/L (3.5-5.5); Sodium, Blood 137 mmol/L (136-145)
--- NOTE | 2020-12-11 06:23 | NUR ---
PATIENT IS ALERT AND ORIENTED. PATIENT DENIES PAIN, CHEST PAIN OR PALPITATION. PATIENT CONTINUES ON 6L HIGH FLOW , 02 SAT AT THE 90'S. PATIENT DENIES RESPITATORY DISTRESS OR SOB. BLOOD SUGARS AT 12AM 105, PATIENT DID NOT REQUIRE INSULIN COVERAGE, PATIENT WAS GIVEN SOME SNACKS. PATIENT'S BLODD SUGAR AT 4AM 230 PATIENT RECEIVED INSULIN COVERAGE PER SS. PATIENT AMBULATED TO THE BATHROOM WITH USE OF A HER ROLLING WALKER AND I ASSIST. PATIENTS POWERGLIDE ON HER RIGHT HAND WAS UNABLE TO FLUSH THIS MORNING DURING BLOOD DRAW AND THE PERIPHERAL LINE ON THE LEFT HAND WAS SLOW TO FLUSH. CHARGE NURSE WAS MADE AWARE. WILL CONTINUE TO MONITOR.
--- NOTE | 2020-12-11 17:09 | NUR ---
SHIFT SUMMARY 50 YEAR F ADMITTED WITH COVID A LITTLE OVER A WEEK AGO MAKING SIGNIFICANT IMPROVEMENTES. PT STARTED SHIFT ON 6L HF NC SATS 96%, TITRATED DOWN TO 3L TODAY MAINTAINING SATS >90 EVEN UP WITH ACTIVITY. PT DENIES SOB BUT DOES REPORT THAT SHE IS VERY FATIGUED AFTER ACTIVITY. DICUSSED D/C PLANS WITH DR. SHEA AND PROBABLE FOR D/C HOME TOMORROW IF PT TOLERATES 3L OR LESS OF O2. NO OTHER CHANGES TO REPORT THIS SHIFT.
[2020-12-12 05:30] LABS: Albumin, Blood 2.7 g/dL (3.4-5.0); Anion Gap 8 mmol/L (6-16); Blood Urea Nitrogen 32 mg/dL (8-24); Bun/Creatinine Ratio 49.7 (12.0-20.0); CO2, Blood 27 mmol/L (21-32); Calcium, Blood 9.9 mg/dL (8.5-10.1); Chloride, Blood 103 mmol/L (98-108); Creatinine, Blood 0.64 mg/dL (0.40-1.00); Glomerular Filtration Rate >60 (60-); Glucose, Blood 86 mg/dL (70-99); Magnesium, Blood 1.8 mg/dL (1.6-2.4); Phosphorus, Blood 6.1 mg/dL (2.5-4.9); Potassium, Blood 3.6 mmol/L (3.5-5.5); Sodium, Blood 138 mmol/L (136-145)
--- NOTE | 2020-12-12 06:16 | NUR ---
PATIENT IS ALERT AND ORIENTED X4. PATIENT AMBULATED TO THE BATHROOM WITH USE OF I ASSIST X2. PATIENT BLOOD SUGAR WAS 60 AT 4AM THIS MORNING. PATIENT WAS GIVEN SOME ORANGE JUICE AND A SANDWICH. RECHECKED BS AFTER 45 MINS WAS 75. PATIENT DENIES ANY SIGNS AND SYMPTOMS OF HYPOGLYCEMIA. WILL CONTINUE TO MONITOR.
--- NOTE | 2020-12-12 10:34 | NUR ---
Per Dr. Oneil, pt. likely to be appropriate for discharge today. Home O2 eval needed. Pt. scheduled for hospital F/U on 12/18/20 at 10:20am with [facility] via telehealth. Strong family support system. Do not anticipate any additional needs at this.
[2020-12-12] MEDS ORDERED: PRED20 PO (11:49)
[2020-12-12] MEDS ORDERED: ZINC220 PO (11:49)
[2020-12-12] MEDS ORDERED: Acerola C500 MG PO (11:49)
[2020-12-12] MEDS ORDERED: XARELTO20 MG PO (11:50)
--- NOTE | 2020-12-12 13:09 | NUR ---
DISCHARGE HOME D/C HOME ORDERS RECIEVED, REVIEWED AND IMPLEMENTED. RX FAXED TO PTS PHARMACY OF CHOICE. IV'S X2 REMOVED INTACT, PT TOLERATED WELL. HOME D/C INSTRUCTIONS, EDUCATION AND MED LIST REVIEWED WITH PT, PT VERBALIZED UNDERSTANDING. PT ESCORTED OUT VIA W/C AND D/C HOME VIA PRIVATE VEHICLE
--- NOTE | 2020-12-12 13:09 | NUR ---
No home oxygen needs based on Home O2 eval. Patient has no other needs at this time.
== END 2020-12-12 13:12 | disposition home or self-care (01) | DRG 177 ==
LOC: ER 12:57 → ICUE 16:25 → ICUW 16:25 → ICUE 18:00 → MEDS 12-09 23:05
PROVIDERS: Emergency Medicine; Family Medicine; Internal Medicine Critical Care Medicine; ADMIT Internal Medicine
PROC: 8E0ZXY6 Isolation (ICD-10-PCS; principal; 2020-12-03)
PROC: XW033E5 Introduction of Remdesivir Anti-infective into Peripheral Vein, Percutaneous Approach, New Technology Group 5 (ICD-10-PCS; 2020-12-03)
PROC: 5A0945A Assistance with Respiratory Ventilation, 24-96 Consecutive Hours, High Flow/Velocity Cannula (ICD-10-PCS; 2020-12-03)
PROC: 3E0333Z Introduction of Anti-inflammatory into Peripheral Vein, Percutaneous Approach (ICD-10-PCS; 2020-12-03)
PROC: 5A09457 Assistance with Respiratory Ventilation, 24-96 Consecutive Hours, Continuous Positive Airway Pressure (ICD-10-PCS; 2020-12-04)
DX: U07.1 COVID-19 (principal); J96.01 Acute respiratory failure with hypoxia; J12.82 Pneumonia due to coronavirus disease 2019; Z68.43 Body mass index [BMI] 50.0-59.9, adult; Z66 Do not resuscitate; E66.01 Morbid (severe) obesity due to excess calories; K21.9 Gastro-esophageal reflux disease without esophagitis; E11.9 Type 2 diabetes mellitus without complications; F41.1 Generalized anxiety disorder; R32 Unspecified urinary incontinence; F32.9 Major depressive disorder, single episode, unspecified; E78.5 Hyperlipidemia, unspecified; G47.33 Obstructive sleep apnea (adult) (pediatric); Z98.890 Other specified postprocedural states; Z98.891 History of uterine scar from previous surgery; Z79.84 Long term (current) use of oral hypoglycemic drugs; Z79.899 Other long term (current) drug therapy
CPT/HCPCS: 36415; 36416; 51702; 71045; 71260; 80048; 80053; 80069; 81001; 82728; 82947; 83615; 83735; 84484; 85025; 85379; 87040; 93005; 93010; 94660; 94667; 94761; 94762; 96374; 97110; 97116; 97162; 97530; 99285-25; A9270; C1751; J0360; J0456; J1650; J1815; J2060; J2405; J2550; J2920; J3475; J7050; J7509; J7512; Q9967

== ENCOUNTER → 2021-01-10 | Outpatient (CLI) | payer OTHER ==
[~2021-01-10] MED LIST changes: +Acerola C500 MG PO; +PRED20 PO; +XARELTO20 MG PO; +ZINC220 PO
== END | disposition home or self-care (01) ==
LOC: LAB SHORT 16:01 → LAB 16:01
DX: N39.0 Urinary tract infection, site not specified (principal)
CPT/HCPCS: 87077; 87086; 87147; 87186

== ENCOUNTER 2021-05-20 03:05 | Inpatient (IN) | payer OTHER ==
[~2021-05-20] VITALS: Ht 170.2 cm; Wt 158.8 kg
[2021-05-20 03:23] LABS: Hematocrit 34.9 % (33.0-51.0); Hemoglobin 11.6 g/dL (11.5-16.0); Mean Corpuscular HGB 28.9 pg (26.0-34.0); Mean Corpuscular HGB Conc 33.2 g/dL (31.5-36.5); Mean Corpuscular Volume 87 fL (80-100); Platelet Count 230 K/mm3 (150-400); RDW Coefficient Variation 15.5 % (11.7-14.2); RDW Standard Deviation 49.7 fL (35.1-46.3); Red Blood Cell Count 4.01 M/mm3 (3.80-5.20); White Blood Cell Count 28.16 K/mm3 (4.00-11.30)
[2021-05-20 03:40] LABS: Alanine Aminotransfer (ALT/SGP 17 U/L (12-78); Albumin, Blood 2.8 g/dL (3.4-5.0); Albumin/Globulin Ratio 0.7 (0.8-1.8); Alk Phos 69 U/L (50-136); Anion Gap 13 mmol/L (6-16); Aspartate Aminotrans (AST/SGOT 6 U/L (12-37); Bilirubin, Total 0.7 mg/dL (0.1-1.0); Blood Urea Nitrogen 20 mg/dL (8-24); Bun/Creatinine Ratio 22.9 (12.0-20.0); CO2, Blood 18 mmol/L (21-32); Calcium, Blood 8.8 mg/dL (8.5-10.1); Chloride, Blood 100 mmol/L (98-108); Creatinine, Blood 0.88 mg/dL (0.40-1.00); Globulin, Blood 4.3 g/dL (2.2-4.0); Glomerular Filtration Rate >60 (60-); Glucose, Blood 451 mg/dL (70-99); Sodium, Blood 131 mmol/L (136-145); Total Protein, Blood 7.1 g/dL (6.4-8.2)
[2021-05-20 03:53] LABS: BAND PERCENT MAN 5 % (0-8); BASOPHILS PERCENT MAN 0 % (0-2); EOSINOPHILS PERCENT MAN 0 % (0-6); LYMPHOCYTES ABSOLUTE MAN 0.56 K/mm3 (0.84-5.20); LYMPHOCYTES PERCENT MAN 2 % (21-46); MONOCYTES ABSOLUTE MAN 1.12 K/mm3 (0.16-1.47); MONOCYTES PERCENT MAN 4 % (4-13); NEUTROPHILS ABSOLUTE MAN 26.47 K/mm3 (1.96-9.15); SEG NEUTROPHILS PERCENT MAN 89 % (41-73); TOTAL CELLS COUNTED 100
[2021-05-20 04:25] LABS: Influenza A, PCR NEGATIVE (NEGATIVE); Influenza B, PCR NEGATIVE (NEGATIVE); Resp Syncytial Virus, PCR NEGATIVE (NEGATIVE); SARS-Cov-2 (COVID-19) PCR, MMC NEGATIVE (NEGATIVE)
[2021-05-20 04:38] LABS: Source, Urine Clean Catch
[2021-05-20 04:41] LABS: Bilirubin, Urine Neg (Neg); Blood, Urine 5+ (Neg); Glucose Qualitative, Urine 3+ (Neg); Ketones, Urine 2+ (Neg); Leukocyte Esterase, Urine 3+ (Neg); Nitrite, Urine Neg (Neg); Protein, Urine 3+ (Neg); Specific Gravity, Urine 1.025 (1.003-1.022); Urobilinogen, Urine NORM (Normal)
[2021-05-20 04:56] LABS: Appearance, Urine Cloudy (Clear); Color, Urine Yellow (P-Yellow)
[2021-05-20 04:58] LABS: Bacteria Many /hpf; Red Blood Cells, Urine Rare /hpf (0-2); Squamous Epithelial Cells Rare /hpf (Few); White Blood Cells, Urine TNTC /hpf (0-5)
[2021-05-20 05:26] LABS: PCO2 Arterial 33.4 mmHg (35-45); PO2 Arterial 68.9 mmHg (80-100); pH Blood Arterial 7.32 (7.35-7.45)
[2021-05-20 09:10] LABS: Bun/Creatinine Ratio 21.6 (12.0-20.0); Calcium, Blood 7.7 mg/dL (8.5-10.1); Creatinine, Blood 1.16 mg/dL (0.40-1.00); Potassium, Blood 5.3 mmol/L (3.5-5.5)
[2021-05-20 16:18] LABS: Blood Urea Nitrogen 19 mg/dL (8-24); Bun/Creatinine Ratio 20.1 (12.0-20.0); CO2, Blood 13 mmol/L (21-32); Chloride, Blood 118 mmol/L (98-108); Creatinine, Blood 0.95 mg/dL (0.40-1.00); Glomerular Filtration Rate >60 (60-); Glucose, Blood 365 mg/dL (70-99)
[2021-05-20 16:20] LABS: Anion Gap 10 mmol/L (6-16); Sodium, Blood 141 mmol/L (136-145)
[2021-05-20 16:21] LABS: Calcium, Blood <5.0 mg/dL (8.5-10.1)
[2021-05-20 16:38] LABS: Magnesium, Blood 0.6 mg/dL (1.6-2.4); Phosphorus, Blood 2.2 mg/dL (2.5-4.9)
[2021-05-20 18:22] LABS: Bun/Creatinine Ratio 19.6 (12.0-20.0); Creatinine, Blood 1.63 mg/dL (0.40-1.00); Potassium, Blood 4.4 mmol/L (3.5-5.5)
--- NOTE | 2021-05-20 19:24 | NUR ---
PATIENT ADMITTED FOR URO-SEPSIS. PATIENT AOX4, WEAK, REPORTS NAUSEA WITH MOVEMENT. STAND PIVOT FROM ED BED TO PATIENT BED. PT REQUESTING BEDPAIN, C/O WEAKNESS/NAUSEA W/ MOVEMENT. LAB CAME AND COLLECTED LABS, RESULTS PENDING. CBG 444, HUMALOG 25U GIVEN. NS INFUSING AT 125ML/HR, IV IN RIGHT HAND. PATIENT REPORTS SEVERE 10/10 PAIN IN RUQ/CENTER OF ABD. MD ORDERED DILAUDID AND PHERGEN, PRNS GIVEN WITH EFFECTIVE RESULTS. VSS, PULSE >100, AFEBRILE. TOLERATING CLEAR LIQUID DIET.
[2021-05-20 22:12] LABS: Bun/Creatinine Ratio 17.8 (12.0-20.0); Calcium, Blood 8.1 mg/dL (8.5-10.1); Creatinine, Blood 1.91 mg/dL (0.40-1.00); Potassium, Blood 4.3 mmol/L (3.5-5.5)
[2021-05-21 01:41] LABS: BASOPHILS ABSOLUTE AUTO 0.05 K/mm3 (0.00-0.23); BASOPHILS PERCENT AUTO 0 % (0-2); EOSINOPHILS ABSOLUTE AUTO 0.02 K/mm3 (0.00-0.68); EOSINOPHILS PERCENT AUTO 0 % (0-6); Hematocrit 27.2 % (33.0-51.0); Hemoglobin 8.9 g/dL (11.5-16.0); IMMATURE GRAN ABSOLUTE AUTO 0.23 K/mm3 (0.00-0.10); IMMATURE GRAN PERCENT AUTO 1 % (0-1); LYMPHOCYTES ABSOLUTE AUTO 1.09 K/mm3 (0.84-5.20); LYMPHOCYTES PERCENT AUTO 5 % (21-46); MONOCYTES ABSOLUTE AUTO 1.51 K/mm3 (0.16-1.47); MONOCYTES PERCENT AUTO 7 % (4-13); Mean Corpuscular HGB 29.3 pg (26.0-34.0); Mean Corpuscular HGB Conc 32.7 g/dL (31.5-36.5); Mean Corpuscular Volume 90 fL (80-100); NEUTROPHILS ABSOLUTE AUTO 19.74 K/mm3 (1.96-9.15); NEUTROPHILS PERCENT AUTO 87 % (41-73); Platelet Count 184 K/mm3 (150-400); RDW Coefficient Variation 15.9 % (11.7-14.2); Red Blood Cell Count 3.04 M/mm3 (3.80-5.20); White Blood Cell Count 22.64 K/mm3 (4.00-11.30)
[2021-05-21 02:00] LABS: Magnesium, Blood 1.6 mg/dL (1.6-2.4)
[2021-05-21 02:13] LABS: Alanine Aminotransfer (ALT/SGP 18 U/L (12-78); Albumin, Blood 2.5 g/dL (3.4-5.0); Albumin/Globulin Ratio 0.6 (0.8-1.8); Alk Phos 66 U/L (50-136); Anion Gap 9 mmol/L (6-16); Aspartate Aminotrans (AST/SGOT <3 U/L (12-37); Bilirubin, Total 0.3 mg/dL (0.1-1.0); Blood Urea Nitrogen 38 mg/dL (8-24); Bun/Creatinine Ratio 16.2 (12.0-20.0); CO2, Blood 22 mmol/L (21-32); Calcium, Blood 7.9 mg/dL (8.5-10.1); Chloride, Blood 99 mmol/L (98-108); Creatinine, Blood 2.35 mg/dL (0.40-1.00); Globulin, Blood 4.3 g/dL (2.2-4.0); Glomerular Filtration Rate 22 (60-); Glucose, Blood 321 mg/dL (70-99); Potassium, Blood 4.6 mmol/L (3.5-5.5); Sodium, Blood 130 mmol/L (136-145); Total Protein, Blood 6.8 g/dL (6.4-8.2)
--- NOTE | 2021-05-21 06:12 | NUR ---
LATE ENTRY FOR 05/20/21 @ 2100 MAG LEVEL IN ER WAS 0.6 WITH SOME QUESTION OF ACCURACY. DR MAYES WAS NOTIFIED AND STAT MAG LEVEL WAS ORDERED. NEW RESULT WAS CRITICAL AT 1.1. DR MAYES WAS NOTIFIED AND MAG RUN WAS ORDERED AND GIVEN.
--- NOTE | 2021-05-21 06:17 | NUR ---
LATE ENTRY FOR 05/20/21 @ 2[address] MAYES WAS NOTIFIED AND ORDERS TO GIVEN 8 UNITS OF HUMALOG NOW AND SCHEDULED 50 UNITS OF LONG ACTING. NO NAUSEA AT THIS TIME, TOLERATING CLEAR LIQUID DIET.
--- NOTE | 2021-05-21 06:21 | NUR ---
SHIFT SUMMARY: PATIENT HAS BEEN ST ON TELI SINCE ADMIT TO FLOOR. PATIENT HAS A HISTORY OF KATELYN BUT DOSE NOT USE A CPAP. WHEN ASLEEP SATS ARE FOUND TO BE 87%ON RA. 3L NC IS APPLIED. SATIS 93%. HR HAS BEEN IN THE 120'S DURING SLEEP, NO CHEST PAIN REPORTED. DR FREEMAN IS NOTIFIED AND ORDERS TO GIVE IV LOPRESSOR NOW. PLACE CONT. PULSE OX ARE OBTAINED. IF IV LOPRESSOR IS NOT EFFECTIVE OK TO GIVE SCHEDULED PO LOPRESSOR 100MG EARLY. PATIENT CONTINUES TO REPORT UPPER ABD. PAIN AND NAUSEA. IV DILAUDID AND IV REGLAN HAVE BEEN EFFECTIVE.
--- NOTE | 2021-05-21 07:46 | NUR ---
CRITICAL LAB RESULT: @ 0721 A POSSITIVE BLOOD CULTURE FOR GRAM NEGATIVE BASILI WAS CALLED TO [facility] DURING REPORT. THIS RESULT WAS GIVE TO SHERWIN HENDRICKS RN ON COMING RN. PATIENT IS ON [place] AT THIS TIME.
[2021-05-21 09:17] LABS: Bun/Creatinine Ratio 13.8 (12.0-20.0); Calcium, Blood 7.7 mg/dL (8.5-10.1); Creatinine, Blood 3.05 mg/dL (0.40-1.00); Potassium, Blood 4.6 mmol/L (3.5-5.5)
--- NOTE | 2021-05-21 17:35 | NUR ---
SHIFT SUMMARY PATIENT MEDICATED FOR PAIN X1. PATIENT MEDICATED X1 FOR NAUSEA. PATIENT DENIES SHORTNESS OF BREATH. PATIENT DESATS AT NIGHT WHEN SLEEPING, HX OF KATELYN BUT REFUSED CPAP. SHE DID REQUIRE O2 LAST NIGHT. DURING DAY PATIENT SATURATES AT 97 ON ROOM AIR. PATIENT IS A SBA TO THE BATHROOM. PATIENT DID NOT VOID ALL SHIFT. BLADDER SCAN AT 1745 SHOWED 9ML. PATIENT ENCOURAGED TO INCREASE PO FLUIDS. PATIENT IS TOLERATING CLEAR LIQUID DIET WELL. PATIENT HAD AN ULTRASOUND OF THE RUQ TODAY. POSITIVE BLOOD CULTURE. DR. SHEA NOTIFIED. ABX ALREADY ORDERED. PATIENT HAD MULTIPLE VISITORS TODAY. PATIENT VERY SLEEPY. PATIET IS PLEASANT AND COOPERATIVE WITH CARE.
--- NOTE | 2021-05-22 07:33 | NUR ---
SHIFT SUMMARY PT A/O X4, ST ON MONITOR WITH HR IN THE 120'S THIS SHIFT EXCEPT WHEN SLEEPING SHE DROPPED TO 115. DENIED ANY CP. C/O UPPER ABD PAIN AND NAUSEA AND WAS MEDICATED VIA MAR AND MEDS WERE EFFECTIVE. DR. ALLEN MADE MADE AWARE OF HR STAYING IN 120'S AND THAT PT HAS NOT VOIDED ALL DAY AND BLADDER SCAN WAS DONE AND SHOWED 35ML. NEW ORDERS WERE RECEIVED TO START NS AT 75ML/HR AND INFUSE FOR 24 HRS. AT 0425 PT ATTEMPTED TO TRY TO VOID ON BSC AND WAS UNABLE TO AND BLADDER SCAN SHOWED 91ML. DR. FREEMAN WAS MADE AWARE THAT PT WAS STILL UNABLE TO VOID ALL DAY AND IS NOW REQUESTING A MED FOR A SORE THROAT, NEW ORDERS RECEIVED FOR CEPACOL AND INSTRUCTED TO INCREASE NS TO 100ML/HR.
[2021-05-22 13:31] LABS: BASOPHILS ABSOLUTE AUTO 0.03 K/mm3 (0.00-0.23); BASOPHILS PERCENT AUTO 0 % (0-2); EOSINOPHILS ABSOLUTE AUTO 0.24 K/mm3 (0.00-0.68); EOSINOPHILS PERCENT AUTO 2 % (0-6); Hematocrit 22.3 % (33.0-51.0); Hemoglobin 7.2 g/dL (11.5-16.0); IMMATURE GRAN ABSOLUTE AUTO 0.18 K/mm3 (0.00-0.10); IMMATURE GRAN PERCENT AUTO 1 % (0-1); LYMPHOCYTES ABSOLUTE AUTO 1.18 K/mm3 (0.84-5.20); LYMPHOCYTES PERCENT AUTO 9 % (21-46); MONOCYTES ABSOLUTE AUTO 1.47 K/mm3 (0.16-1.47); MONOCYTES PERCENT AUTO 11 % (4-13); Mean Corpuscular HGB 28.8 pg (26.0-34.0); Mean Corpuscular HGB Conc 32.3 g/dL (31.5-36.5); Mean Corpuscular Volume 89 fL (80-100); Mean Platelet Volume 10.4 fL (9.1-12.4); NEUTROPHILS ABSOLUTE AUTO 9.74 K/mm3 (1.96-9.15); NEUTROPHILS PERCENT AUTO 76 % (41-73); Platelet Count 170 K/mm3 (150-400); RDW Coefficient Variation 15.9 % (11.7-14.2); White Blood Cell Count 12.84 K/mm3 (4.00-11.30)
[2021-05-22 13:38] LABS: Bun/Creatinine Ratio 10.9 (12.0-20.0); Calcium, Blood 8.3 mg/dL (8.5-10.1); Creatinine, Blood 5.03 mg/dL (0.40-1.00); Potassium, Blood 4.1 mmol/L (3.5-5.5)
[2021-05-22 14:57] LABS: Calcium, Blood 7.8 mg/dL (8.5-10.1); Creatinine, Blood 5.28 mg/dL (0.40-1.00); Potassium, Blood 4.1 mmol/L (3.5-5.5); Uric Acid, Blood 11.9 mg/dL (2.6-6.0)
--- NOTE | 2021-05-22 17:56 | NUR ---
SHIFT SUMMARY PATIENT MEDICATED X1 FOR PAIN. PATIENT DENIES NAUSEA AND SHORTNESS OF BREATH. PATIENT ON RA DURING THE DAY, BUT NEEDS 3L AT HS TO MAINTAIN SATS ABOVE 90%. PATIENT IS A SBA DUE TO WEAKNESS. PATIENT STILL DID NOT VOID THIS SHIFT. DR. SHEA NOTIFIED, NEW ORDERS FOR BMP AND CBC. PATIENT GFR IS 9, CONSULT ORDERED AND CALLED FOR DR. ESPINOZA. HE SAW THE PATIENT, NEW ORDERS FOR BICARB 50ML/HR, FLUID RESTRICTION 1000ML, 24HR URINE, AND CT OF ABDOMEN. DINNER CBG WAS 129, DR. SHEA NOTIFIED AND SCHEDULED 25UNITS OF SHORT ACTING INSULIN HELD. PATIENT HR HAS BEEN BETTER TODAY, AVERAGING 110. PATIENT DIET INCREASED TO SOFT FOODS. SHE HAS POOR FOOD INTAKE, BUT DRINKS OKAY. PATIENT IS PLEASANT AND COOPERATIVE WITH CARE.
[2021-05-22 21:02] LABS: Hematocrit 23.5 % (33.0-51.0); Hemoglobin 7.7 g/dL (11.5-16.0); Mean Corpuscular HGB 29.3 pg (26.0-34.0); Mean Corpuscular HGB Conc 32.8 g/dL (31.5-36.5); Mean Corpuscular Volume 89 fL (80-100); Mean Platelet Volume 10.8 fL (9.1-12.4); Platelet Count 188 K/mm3 (150-400); RDW Coefficient Variation 16.1 % (11.7-14.2); RDW Standard Deviation 53.4 fL (35.1-46.3); Red Blood Cell Count 2.63 M/mm3 (3.80-5.20); White Blood Cell Count 14.24 K/mm3 (4.00-11.30)
[2021-05-22 21:18] LABS: International Normalized Ratio 1.08; Prothrombin Time Results 11.3 Sec (9.7-11.5)
[2021-05-22 21:20] LABS: BASOPHILS PERCENT MAN 0 % (0-2); EOSINOPHILS ABSOLUTE MAN 0.28 K/mm3 (0.00-0.68); EOSINOPHILS PERCENT MAN 2 % (0-6); LYMPHOCYTES ABSOLUTE MAN 0.99 K/mm3 (0.84-5.20); LYMPHOCYTES PERCENT MAN 7 % (21-46); MONOCYTES ABSOLUTE MAN 0.71 K/mm3 (0.16-1.47); MONOCYTES PERCENT MAN 5 % (4-13); NEUTROPHILS ABSOLUTE MAN 12.24 K/mm3 (1.96-9.15); SEG NEUTROPHILS PERCENT MAN 86 % (41-73); TOTAL CELLS COUNTED 100
[2021-05-22 21:44] LABS: Albumin, Blood 2.3 g/dL (3.4-5.0); Albumin/Globulin Ratio 0.5 (0.8-1.8); Bilirubin, Direct 0.2 mg/dL (0.0-0.3); Bilirubin, Indirect 0.3 mg/dL (0.1-0.7); Bilirubin, Total 0.5 mg/dL (0.1-1.0); Globulin, Blood 4.7 g/dL (2.2-4.0)
[2021-05-23 01:46] LABS: BASOPHILS ABSOLUTE AUTO 0.02 K/mm3 (0.00-0.23); BASOPHILS PERCENT AUTO 0 % (0-2); EOSINOPHILS ABSOLUTE AUTO 0.35 K/mm3 (0.00-0.68); EOSINOPHILS PERCENT AUTO 3 % (0-6); Hematocrit 21.8 % (33.0-51.0); Hemoglobin 7.1 g/dL (11.5-16.0); IMMATURE GRAN PERCENT AUTO 2 % (0-1); LYMPHOCYTES ABSOLUTE AUTO 1.09 K/mm3 (0.84-5.20); LYMPHOCYTES PERCENT AUTO 8 % (21-46); MONOCYTES ABSOLUTE AUTO 1.55 K/mm3 (0.16-1.47); MONOCYTES PERCENT AUTO 12 % (4-13); Mean Corpuscular HGB 28.9 pg (26.0-34.0); Mean Corpuscular HGB Conc 32.6 g/dL (31.5-36.5); Mean Corpuscular Volume 89 fL (80-100); Mean Platelet Volume 10.1 fL (9.1-12.4); NEUTROPHILS ABSOLUTE AUTO 10.28 K/mm3 (1.96-9.15); NEUTROPHILS PERCENT AUTO 76 % (41-73); Platelet Count 192 K/mm3 (150-400); RDW Coefficient Variation 15.8 % (11.7-14.2); RDW Standard Deviation 51.7 fL (35.1-46.3); Red Blood Cell Count 2.46 M/mm3 (3.80-5.20); White Blood Cell Count 13.49 K/mm3 (4.00-11.30)
[2021-05-23 02:09] LABS: Albumin, Blood 2.3 g/dL (3.4-5.0); Anion Gap 13 mmol/L (6-16); Blood Urea Nitrogen 63 mg/dL (8-24); Bun/Creatinine Ratio 11.5 (12.0-20.0); CO2, Blood 20 mmol/L (21-32); Calcium, Blood 8.1 mg/dL (8.5-10.1); Chloride, Blood 95 mmol/L (98-108); Creatinine, Blood 5.49 mg/dL (0.40-1.00); Glomerular Filtration Rate 8 (60-); Glucose, Blood 200 mg/dL (70-99); Magnesium, Blood 1.7 mg/dL (1.6-2.4); Phosphorus, Blood 4.7 mg/dL (2.5-4.9); Potassium, Blood 4.1 mmol/L (3.5-5.5); Sodium, Blood 128 mmol/L (136-145)
--- NOTE | 2021-05-23 04:49 | NUR ---
SHIFT SUMMARY PATIENT ALERT AND ORIENTED X4 ABLE TO VOICED NEEDS DENIES ANY PAIN. RECEIVED NEW ORDERS FROM DR WAHL STAT PT/INR,CBC WITH DIF,LIVER PANEL,SERUM LBH ,APTT TYPE AND SCREEN ALL DONE AND REPORTED TO DR REGINO VEGA TIL FURTHER NOTICE.PATIENT ABLE TO VOID FOR PROTINE URINE 24 HR COLLECTION HAS STARTED 700CC COLLECTED AT THIS MOMENT .NO ACUTE CHANGE NOTED
--- NOTE | 2021-05-23 18:23 | NUR ---
SHIFT SUMMARY- PT IS A/O, PLESANT AND COOPERATIVE. SHE RECIEVED PAIN AND NAUSEA MEDICATION PRN. SHE IS EATING AND DRINKING WELL. FAMILY WAS AT BEDSIDE THIS AFTERNOON. SHE HAS BEEN VOIDING FREQUENTLY THIS SHIFT. 24 HR URINE COLLECTION CONTINUES. HER BED IS IN THE LOW POSITION AND CALL LIGHT IS WITHIN REACH.
--- NOTE | 2021-05-23 21:00 | NUR ---
24 HOUR COMPLETE - SENT TO LAB. PT IS SITTING UP IN BED, PLAYING ON HER TELEPHONE. PT'S SKIN COLOR IS PALE. PT IS MORBIDLY OBESE. PT DENIES ANY PAIN, HEADACHE, CHEST PAIN, NAUSEA. PT REPORTS HISTORY OF N/T TO BILATERAL FEET. PT IS A DIABETIC. PT DENIES REQUEST FOR FOOD/SNACK AFTER RECEIVING INSULIN. SHE REPORTS SHE IS ABLE TO TELL WHEN HER BLOOD SUGAR GETS LOW, AND WILL NOTIFY STAFF IF NEEDED. FLUIDS AT BEDSIDE. SNACKS AT BEDSIDE. CALL LIGHT WITHIN REACH. BED IN LOW POSITION. PT REPORTS MILD BURNING WITH URINATION, OTHERWISE PT DENIES ANY COMPLAINTS.
[2021-05-23 21:28] LABS: Protein, Urine Quantitative 110.3 mg/dL (0.0-11.9)
--- NOTE | 2021-05-24 01:17 | NUR ---
PRUNE JUICE GIVEN TO PT - NO BM FOR SEVERAL DAYS. WILL REPORT THIS OFF TO ONCOMING SHIFT IF NO BM RESULTS TONIGHT.
--- NOTE | 2021-05-24 04:30 | NUR ---
PT IS DANGLING HER LEGS. SHE REPORTS THE BED IS UNCOMFORTABLE FOR HER BACK. PT DENIES FEELING DIZZY, LIGHTHEADED OR SOB. CALL LIGHT WITHIN REACH. FLUIDS AT BEDSIDE. BED IN LOW POSITION. PT'S URINE IS CLOUDY.
--- NOTE | 2021-05-24 05:02 | NUR ---
SHIFT SUMMARY - NO ACUTE CHANGES THIS SHIFT. 24 HOUR URINE SENT - SEE LAB RESULTS. PT RELAYED SHE WAS HAVING VISUAL HALLUCINATIONS ON 05/22 NOC SHIFT, HOWEVER PT DENIES HAVING ANY TONIGHT. I ALSO REVIEWED PT'S MEDICATIONS WITH HER, SHE REPORTS NO NEW MEDICATIONS, EXCEPT ANTIBIOTICS. PT'S URINE CONTINUES TO BE CLOUDY YELLOW IN COLOR. PO FLUIDS AT BEDSIDE. CALL LIGHT WITHIN REACH. BED IN LOW POSITION. WILL CONTINUE TO MONITOR UNTIL AM SHIFT CHANGE.
[2021-05-24 05:11] LABS: Hematocrit 22.3 % (33.0-51.0); Hemoglobin 7.4 g/dL (11.5-16.0)
[2021-05-24 05:41] LABS: Albumin, Blood 2.4 g/dL (3.4-5.0); Anion Gap 13 mmol/L (6-16); Blood Urea Nitrogen 68 mg/dL (8-24); Bun/Creatinine Ratio 14.6 (12.0-20.0); CO2, Blood 20 mmol/L (21-32); Calcium, Blood 8.9 mg/dL (8.5-10.1); Chloride, Blood 95 mmol/L (98-108); Creatinine, Blood 4.66 mg/dL (0.40-1.00); Glomerular Filtration Rate 10 (60-); Glucose, Blood 258 mg/dL (70-99); Magnesium, Blood 1.8 mg/dL (1.6-2.4); Phosphorus, Blood 5.3 mg/dL (2.5-4.9); Potassium, Blood 3.9 mmol/L (3.5-5.5); Sodium, Blood 128 mmol/L (136-145)
--- NOTE | 2021-05-24 12:54 | NUR ---
PT HAS BEEN HALLUCINATING THIS SHIFT, THIS AM SHE DENIED HALLUCINATING, BUT WHILE IN THE SHOWER SHE SAID SHE SAW WATER ALL THE FLOOR AND THEN THE FLOOR STARTED MOVING. PT HAS ALSO SEEN SMALL BLACK BUGS CRAWLING ALL OVER THE FLOOR AND ESTRADA AND SAID THERE IS SOMEONE IN THE CORNER WHISPERING THINGS. SHE DENIED ANY THOUGHTS OF SELF HARM AND WAS NOT AFRAID OF THE HALLUCINATIONS, JUST THOUGHT THAT THEY WERE STRANGE
--- NOTE | 2021-05-24 18:33 | NUR ---
SHIFT SUMMARY PT HAS BEEN UP AT THE BEDSIDE MOST OF THE SAY OR SITTING IN THE CHAIR. SHE WAS NAUSEOUS THIS AFTERNOOND MEDICATED WITH REGLAN PER MAY WHICH SEEMED TO HELP. HOWEVER SHE HAD BEEN HAVING SOME HALLUCINATIONS (SEE NOTE) PT WAS GIVEN ZYPREXA FOR HALLUCINATIONS WHICH HELPED WITHIN 30 MINUTES. SHE WAS EXTREMELY TIRED THIS AFTERNOON. I WAS NOT GIVEN FURTHER INFORMATION ABOUT THE MASS FOUND ON HER KIDNEY OR STATUS OF POSSIBLE UTI BY THE DOCTOR. WILL CONTINUE TO MONITOR AND UPDATE DR NEEDED.
[2021-05-25 04:31] LABS: Hematocrit 23.3 % (33.0-51.0); Hemoglobin 7.8 g/dL (11.5-16.0)
[2021-05-25 04:50] LABS: Albumin, Blood 2.6 g/dL (3.4-5.0); Anion Gap 11 mmol/L (6-16); Blood Urea Nitrogen 69 mg/dL (8-24); Bun/Creatinine Ratio 23.3 (12.0-20.0); CO2, Blood 24 mmol/L (21-32); Calcium, Blood 9.5 mg/dL (8.5-10.1); Chloride, Blood 96 mmol/L (98-108); Creatinine, Blood 2.96 mg/dL (0.40-1.00); Glomerular Filtration Rate 17 (60-); Glucose, Blood 301 mg/dL (70-99); Magnesium, Blood 1.5 mg/dL (1.6-2.4); Phosphorus, Blood 5.1 mg/dL (2.5-4.9); Potassium, Blood 3.9 mmol/L (3.5-5.5); Sodium, Blood 131 mmol/L (136-145)
--- NOTE | 2021-05-25 16:52 | NUR ---
SHIFT SUMMARY PT HAS BEEN SLEEPING MUCH BETTER TODAY i WAS ABLE TO FIND HER A RECLINER TO SLEEP IN. SHE ALSO HAS A HEATING PAD FOR HER BACK WHICH SHE SAYS HAS HELPED WITH THE PAIN SIGNIFICANTLY. SHE HAS NOT HAD ANY NAUSEA OR HALLUCINATIONS THIS SHIFT, BUT SAYS SHE FEEL VERY DRY DUE TO HER RESTRICTIONS. SHE HAS HAD SIGNIFICANT URINE OUTPUT AND FILLED UP THE HAT AROUND 5 TIMES THIS SHIFT FOR A TOTAL OF 4,500 ML OUTPUT. IS HOPEFUL TO DISCHARGE HOME EITHER FRIDAY OR FRIDAY. WILL CONTINUE TO MONITOR
[2021-05-26 04:46] LABS: Hematocrit 23.9 % (33.0-51.0); Mean Corpuscular HGB 28.9 pg (26.0-34.0); Mean Corpuscular HGB Conc 33.5 g/dL (31.5-36.5); Mean Corpuscular Volume 86 fL (80-100); Mean Platelet Volume 9.4 fL (9.1-12.4); Platelet Count 434 K/mm3 (150-400); RDW Coefficient Variation 16.2 % (11.7-14.2); RDW Standard Deviation 51.2 fL (35.1-46.3); Red Blood Cell Count 2.77 M/mm3 (3.80-5.20); White Blood Cell Count 16.26 K/mm3 (4.00-11.30)
[2021-05-26 05:05] LABS: Albumin, Blood 2.8 g/dL (3.4-5.0); Anion Gap 10 mmol/L (6-16); Blood Urea Nitrogen 69 mg/dL (8-24); Bun/Creatinine Ratio 37.3 (12.0-20.0); CO2, Blood 25 mmol/L (21-32); Chloride, Blood 96 mmol/L (98-108); Creatinine, Blood 1.85 mg/dL (0.40-1.00); Glomerular Filtration Rate 29 (60-); Glucose, Blood 325 mg/dL (70-99); Magnesium, Blood 1.8 mg/dL (1.6-2.4); Phosphorus, Blood 4.4 mg/dL (2.5-4.9); Potassium, Blood 3.8 mmol/L (3.5-5.5); Sodium, Blood 131 mmol/L (136-145)
[2021-05-26 05:22] LABS: BAND PERCENT MAN 3 % (0-8); BASOPHILS PERCENT MAN 0 % (0-2); EOSINOPHILS ABSOLUTE MAN 0.81 K/mm3 (0.00-0.68); EOSINOPHILS PERCENT MAN 5 % (0-6); LYMPHOCYTES ABSOLUTE MAN 2.76 K/mm3 (0.84-5.20); LYMPHOCYTES PERCENT MAN 17 % (21-46); METAMYELOCYTE ABSOLUTE MAN 0.16 K/mm3 (0.00-0.00); METAMYELOCYTE PERCENT MAN 1 % (0-0); MONOCYTES ABSOLUTE MAN 1.46 K/mm3 (0.16-1.47); MONOCYTES PERCENT MAN 9 % (4-13); MYELOCYTE ABSOLUTE MAN 0.48 K/mm3 (0.00-0.00); MYELOCYTE PERCENT MAN 3 % (0-0); NEUTROPHILS ABSOLUTE MAN 10.56 K/mm3 (1.96-9.15); SEG NEUTROPHILS PERCENT MAN 62 % (41-73); TOTAL CELLS COUNTED 100
--- NOTE | 2021-05-26 16:18 | NUR ---
SHIFT CHANGE PT SLEPT MUCH BETTER LAST NIGHT AFTER SLEEPING IN THE RECLINER. HER LOWER BACK ALSO FEELS MUCH BETTER AFTER HAVING THE HEATING PAD ON IT. KIDNEY FUNCTION IS IMPROVING AND PER DR THE PT CAN DISCHARGE TOMORROW. HER DIURETICS HAVE BEEN CUT BACK TO ONCE A DAY AND FLUID INTAKE INCREASED TO 2000 ML. PT IS VERY PLEASED TO BE ABLE TO DRINK MORE WATER. WILL CONINUE TO MONITOR.
--- NOTE | 2021-05-27 04:41 | NUR ---
Patient stated she has some difficulty sleeping due to she was excited about the thought of going home today, otherwise no acute changes through night. Respirations remained even and unlabored, RA. Independent in room. Safety maintained, call nunez in reach.
[2021-05-27 05:05] LABS: Hematocrit 25.5 % (33.0-51.0); Hemoglobin 8.2 g/dL (11.5-16.0); Mean Corpuscular HGB 28.7 pg (26.0-34.0); Mean Corpuscular HGB Conc 32.2 g/dL (31.5-36.5); Mean Corpuscular Volume 89 fL (80-100); Mean Platelet Volume 9.1 fL (9.1-12.4); NRBC ABSOLUTE 0.03 K/mm3 (0.00-0.02); NRBC Auto 0.2 /100 WBC (0.0-0.2); Platelet Count 451 K/mm3 (150-400); RDW Coefficient Variation 16.7 % (11.7-14.2); RDW Standard Deviation 54.4 fL (35.1-46.3); Red Blood Cell Count 2.86 M/mm3 (3.80-5.20)
[2021-05-27 05:28] LABS: Albumin, Blood 2.8 g/dL (3.4-5.0); Anion Gap 9 mmol/L (6-16); Blood Urea Nitrogen 67 mg/dL (8-24); Bun/Creatinine Ratio 49.6 (12.0-20.0); CO2, Blood 27 mmol/L (21-32); Calcium, Blood 9.6 mg/dL (8.5-10.1); Chloride, Blood 98 mmol/L (98-108); Creatinine, Blood 1.35 mg/dL (0.40-1.00); Glomerular Filtration Rate 41 (60-); Glucose, Blood 279 mg/dL (70-99); Magnesium, Blood 1.9 mg/dL (1.6-2.4); Phosphorus, Blood 4.1 mg/dL (2.5-4.9); Potassium, Blood 3.6 mmol/L (3.5-5.5); Sodium, Blood 134 mmol/L (136-145)
[2021-05-27 05:31] LABS: BAND PERCENT MAN 5 % (0-8); BASOPHILS ABSOLUTE MAN 0.16 K/mm3 (0.00-0.23); BASOPHILS PERCENT MAN 1 % (0-2); EOSINOPHILS ABSOLUTE MAN 0.81 K/mm3 (0.00-0.68); EOSINOPHILS PERCENT MAN 5 % (0-6); LYMPHOCYTES ABSOLUTE MAN 2.26 K/mm3 (0.84-5.20); LYMPHOCYTES PERCENT MAN 14 % (21-46); METAMYELOCYTE ABSOLUTE MAN 0.81 K/mm3 (0.00-0.00); METAMYELOCYTE PERCENT MAN 5 % (0-0); MONOCYTES ABSOLUTE MAN 1.45 K/mm3 (0.16-1.47); MONOCYTES PERCENT MAN 9 % (4-13); MYELOCYTE ABSOLUTE MAN 0.64 K/mm3 (0.00-0.00); MYELOCYTE PERCENT MAN 4 % (0-0); NEUTROPHILS ABSOLUTE MAN 10.04 K/mm3 (1.96-9.15); SEG NEUTROPHILS PERCENT MAN 57 % (41-73); TOTAL CELLS COUNTED 100
--- NOTE | 2021-05-27 07:10 | NUR ---
DR. ESPINOZA AT BEDSIDE THIS AM, STATES HE WANTS TO SEE PATIENT IN HIS OFFICE FridayMay AT 1430. AM NURSE MADE AWARE.
--- NOTE | 2021-05-27 08:50 | NUR ---
PATIENT REPORTED LARGE BM YESTERDAY, 05/26, REFUSED MIRALAX AND STOOL SOFTENER.
--- NOTE | 2021-05-27 15:28 | NUR ---
SHIFT SUMMARY: PATIENT ALERT AND ORIENTED X 4, ABLE TO VERBALIZE NEEDS, HAS BEEN SITTING UP IN HER CHAIR MOST OF THE DAY. DENIES PAIN, NAUSEA OR VOMITED THROUGHOUT THE SHIFT. ACCUCHECKS ACHS AND INSULIN ADMINISTRATED ORDERED. CONTINUES ON TELE MONITORING, SR. REFUSED MIRALAX AND STOOL SOFTENER, STATED SHE HAD A GOOD BM YESTERDAY. FAMILY VISITING AT THIS TIME.
--- NOTE | 2021-05-28 08:29 | NUR ---
Per Dr. Oneil, patient appropriate to discharge home with spouse/children on 05/27/2021. Patient transported home by family. Per nurse note on 05/27: PT WILL SEE DR ESPINOZA ON FridayMay AT 14:30. [facility] to follow up to schedule hospital follow-up. No anticipated needs, patient denies barriers to discharge.
== END 2021-05-27 16:30 | disposition home or self-care (01) | DRG 871 ==
LOC: ER 03:05 → MEDS 05:54 → ERHOLD 05:54 → MEDS 17:22
PROVIDERS: Emergency Medicine; Internal Medicine; Internal Medicine Nephrology; ADMIT Internal Medicine
DX: A41.4 Sepsis due to anaerobes (principal); E11.10 Type 2 diabetes mellitus with ketoacidosis without coma; N39.0 Urinary tract infection, site not specified; E87.1 Hypo-osmolality and hyponatremia; N17.9 Acute kidney failure, unspecified; Z20.822 Contact with and (suspected) exposure to COVID-19; R65.20 Severe sepsis without septic shock; Z23 Encounter for immunization; E11.22 Type 2 diabetes mellitus with diabetic chronic kidney disease; N18.9 Chronic kidney disease, unspecified; D63.1 Anemia in chronic kidney disease; E11.65 Type 2 diabetes mellitus with hyperglycemia; E86.0 Dehydration; K21.9 Gastro-esophageal reflux disease without esophagitis; F32.A Depression, unspecified; K20.90 Esophagitis, unspecified without bleeding; K76.0 Fatty (change of) liver, not elsewhere classified; E87.70 Fluid overload, unspecified; I12.9 Hypertensive chronic kidney disease with stage 1 through stage 4 chronic kidney disease, or unspecified chronic kidney disease; E66.01 Morbid (severe) obesity due to excess calories; F41.9 Anxiety disorder, unspecified; Z68.30 Body mass index [BMI] 30.0-30.9, adult; Z91.14 Patient's other noncompliance with medication regimen; Z86.16 Personal history of COVID-19; Z88.8 Allergy status to other drugs, medicaments and biological substances; Z79.52 Long term (current) use of systemic steroids; Z79.01 Long term (current) use of anticoagulants; Z79.84 Long term (current) use of oral hypoglycemic drugs; Z79.899 Other long term (current) drug therapy
CPT/HCPCS: 0241U; 36415; 36600; 51701; 71045; 74150; 74176; 76705; 80048; 80053; 80069; 80076; 81001; 81050; 82010; 82550; 82803; 82947; 83605; 83615; 83735; 84100; 84156; 84550; 85007; 85014; 85018; 85025; 85027; 85610; 85730; 86850; 86900; 86901; 87040; 87077; 87086; 87186; 90686; 93005; 93010; 94762; 96361; 96374; 96375; 96376; 99285-25; A9270; J0696; J1170; J1650; J1815; J1885; J2405; J2550; J2765; J3010; J3475; J7030; J7050

== ENCOUNTER → 2021-06-18 | Outpatient (CLI) | payer OTHER | END | disposition home or self-care (01) | LOC: LAB SHORT 15:19 | DX: R30.9 Painful micturition, unspecified (principal) | CPT/HCPCS: 87077; 87086; 87186 ==

== ENCOUNTER → 2021-07-14 | Outpatient (CLI) | payer OTHER ==
[2021-07-14 16:31] LABS: Calcium, Urine <5.0 mg/dL (< 17.5); Calcium, Urine Calculation Unable to Calculate mg/24hrs (42.0-353.0)
[2021-07-14 16:34] LABS: Protein, Urine Quantitative 57.3 mg/dL (0.0-11.9)
[2021-07-14 17:03] LABS: Microalbumin, Urine Quant. 36.3 mg/L (0.000-20.000)
== END ==
LOC: LAB SHORT 07:00
PROVIDERS: Internal Medicine Nephrology
DX: N18.4 Chronic kidney disease, stage 4 (severe) (principal); D63.1 Anemia in chronic kidney disease; R76.9 Abnormal immunological finding in serum, unspecified; G60.9 Hereditary and idiopathic neuropathy, unspecified
CPT/HCPCS: 82043; 82340; 84156; 84300

== ENCOUNTER 2021-08-18 11:41 | Inpatient (IN) | payer OTHER ==
[~2021-08-18] VITALS: Ht 170.2 cm; Wt 149.7 kg
[2021-08-18 12:33] LABS: BASOPHILS ABSOLUTE AUTO 0.06 K/mm3 (0.00-0.23); BASOPHILS PERCENT AUTO 0 % (0-2); EOSINOPHILS PERCENT AUTO 1 % (0-6); Hematocrit 28.5 % (33.0-51.0); Hemoglobin 8.5 g/dL (11.5-16.0); IMMATURE GRAN PERCENT AUTO 4 % (0-1); LYMPHOCYTES ABSOLUTE AUTO 1.66 K/mm3 (0.84-5.20); LYMPHOCYTES PERCENT AUTO 10 % (21-46); MONOCYTES ABSOLUTE AUTO 1.08 K/mm3 (0.16-1.47); MONOCYTES PERCENT AUTO 7 % (4-13); Mean Corpuscular HGB 24.7 pg (26.0-34.0); Mean Corpuscular HGB Conc 29.8 g/dL (31.5-36.5); Mean Corpuscular Volume 83 fL (80-100); Mean Platelet Volume 8.4 fL (9.1-12.4); NEUTROPHILS ABSOLUTE AUTO 12.54 K/mm3 (1.96-9.15); NEUTROPHILS PERCENT AUTO 77 % (41-73); Platelet Count 464 K/mm3 (150-400); RDW Coefficient Variation 16.7 % (11.7-14.2); RDW Standard Deviation 50.1 fL (35.1-46.3); Red Blood Cell Count 3.44 M/mm3 (3.80-5.20); White Blood Cell Count 16.24 K/mm3 (4.00-11.30)
[2021-08-18 12:38] LABS: Source, Urine Clean Catch
[2021-08-18 12:45] LABS: Appearance, Urine Hazy (Clear); Bilirubin, Urine Neg (Neg); Blood, Urine 3+ (Neg); Color, Urine Yellow (P-Yellow); Glucose Qualitative, Urine Neg (Neg); Ketones, Urine 1+ (Neg); Leukocyte Esterase, Urine 3+ (Neg); Nitrite, Urine Pos (Neg); Protein, Urine 3+ (Neg); Urobilinogen, Urine NORM (Normal)
[2021-08-18 12:56] LABS: White Blood Cells, Urine TNTC /hpf (0-5)
[2021-08-18 12:58] LABS: Bacteria Many /hpf; Squamous Epithelial Cells Many /hpf (Few)
[2021-08-18 13:10] LABS: Albumin, Blood 2.8 g/dL (3.4-5.0); Albumin/Globulin Ratio 0.5 (0.8-1.8); Bilirubin, Total 0.3 mg/dL (0.1-1.0); Bun/Creatinine Ratio 15.9 (12.0-20.0); Calcium, Blood 9.2 mg/dL (8.5-10.1); Creatinine, Blood 0.82 mg/dL (0.40-1.00); Globulin, Blood 5.7 g/dL (2.2-4.0); Potassium, Blood 4.3 mmol/L (3.5-5.5); Total Protein, Blood 8.5 g/dL (6.4-8.2)
[2021-08-18] MEDS ORDERED: ALOGLIPTIN25 M1 PO (15:33)
[2021-08-19 05:34] LABS: Hematocrit 27.7 % (33.0-51.0); Hemoglobin 8.2 g/dL (11.5-16.0); Mean Corpuscular HGB 24.8 pg (26.0-34.0); Mean Corpuscular HGB Conc 29.6 g/dL (31.5-36.5); Mean Corpuscular Volume 84 fL (80-100); Mean Platelet Volume 8.5 fL (9.1-12.4); Platelet Count 427 K/mm3 (150-400); RDW Standard Deviation 52.5 fL (35.1-46.3); Red Blood Cell Count 3.31 M/mm3 (3.80-5.20); White Blood Cell Count 15.14 K/mm3 (4.00-11.30)
--- NOTE | 2021-08-19 05:41 | NUR ---
PT IS A/O, STANDBY ASSIST TO BSC, AWAITING GI PANEL SAMPLE. PT DENIES PAIN, SOB, DID HAVE SYNCOPAL EPISODE RESULTING IN HOSPITAL ADMISSION.
[2021-08-19 06:07] LABS: Albumin, Blood 2.5 g/dL (3.4-5.0); Anion Gap 8 mmol/L (6-16); Blood Urea Nitrogen 14 mg/dL (8-24); Bun/Creatinine Ratio 17.1 (12.0-20.0); CO2, Blood 22 mmol/L (21-32); Calcium, Blood 9.1 mg/dL (8.5-10.1); Chloride, Blood 109 mmol/L (98-108); Creatinine, Blood 0.82 mg/dL (0.40-1.00); Glomerular Filtration Rate 87 (60-); Glucose, Blood 155 mg/dL (70-99); Magnesium, Blood 1.5 mg/dL (1.6-2.4); Phosphorus, Blood 4.2 mg/dL (2.5-4.9); Potassium, Blood 3.6 mmol/L (3.5-5.5); Sodium, Blood 139 mmol/L (136-145)
[2021-08-19 06:09] LABS: BAND PERCENT MAN 4 % (0-8); BASOPHILS ABSOLUTE MAN 0.15 K/mm3 (0.00-0.23); BASOPHILS PERCENT MAN 1 % (0-2); EOSINOPHILS ABSOLUTE MAN 0.15 K/mm3 (0.00-0.68); EOSINOPHILS PERCENT MAN 1 % (0-6); LYMPHOCYTES ABSOLUTE MAN 1.36 K/mm3 (0.84-5.20); LYMPHOCYTES PERCENT MAN 9 % (21-46); MONOCYTES PERCENT MAN 4 % (4-13); MYELOCYTE ABSOLUTE MAN 0.15 K/mm3 (0.00-0.00); MYELOCYTE PERCENT MAN 1 % (0-0); NEUTROPHILS ABSOLUTE MAN 12.71 K/mm3 (1.96-9.15); SEG NEUTROPHILS PERCENT MAN 80 % (41-73); TOTAL CELLS COUNTED 100
[2021-08-19] MEDS ORDERED: ONDA4 PO (12:10)
[2021-08-19] MEDS ORDERED: POTA10T PO (12:12)
[2021-08-19] MEDS ORDERED: SULFAMETHOXAZO1 EAC1 PO (12:12)
--- NOTE | 2021-08-19 12:56 | NUR ---
DISCHARGE PT A&O X4, SON @ BEDSIDE. PT VERBALIZED UNDERSTANDING OF WRITTEN INFORMATION. TOLERATING PO INTAKE, DENIES PAIN. IV DC'ED, MEDS FAXED TO [facility]. VSS. SON PROVIDED TRANSPORT. WC ESCORT TO [facility], BELONGINGS IN TOW.
== END 2021-08-19 12:59 | disposition home or self-care (01) | DRG 690 ==
LOC: ER 11:41 → MEDS 15:30
PROVIDERS: Physician Assistant; ADMIT Family Medicine
DX: N39.0 Urinary tract infection, site not specified (principal); Z68.43 Body mass index [BMI] 50.0-59.9, adult; E11.9 Type 2 diabetes mellitus without complications; I10 Essential (primary) hypertension; K21.9 Gastro-esophageal reflux disease without esophagitis; Z88.8 Allergy status to other drugs, medicaments and biological substances; Z79.899 Other long term (current) drug therapy; Z79.4 Long term (current) use of insulin; N32.81 Overactive bladder; F41.1 Generalized anxiety disorder; E66.01 Morbid (severe) obesity due to excess calories; E78.5 Hyperlipidemia, unspecified; Z98.890 Other specified postprocedural states; Z86.16 Personal history of COVID-19
CPT/HCPCS: 36415; 71045; 80053; 80069; 81001; 82947; 83036; 83605; 83735; 85025; 87077; 87086; 87186; 96361; 96374; 99285-25; A9270; J0696; J1650; J1815; J3475; J7030

== ENCOUNTER 2021-09-18 23:28 | Inpatient (IN) | payer OTHER ==
[~2021-09-18] VITALS: Ht 170.2 cm; Wt 149.5 kg
[~2021-09-18 23:28] MED LIST changes: +ALOGLIPTIN25 M1 PO; -BASAGLAR K100 UNIT/6 SC; +INSULANPEN SC; +ONDA4 PO; +POTA10T PO; +SULFAMETHOXAZO1 EAC1 PO
[2021-09-19 00:07] LABS: Hematocrit 27.8 % (33.0-51.0); Hemoglobin 8.2 g/dL (11.5-16.0); Mean Corpuscular HGB 23.1 pg (26.0-34.0); Mean Corpuscular HGB Conc 29.5 g/dL (31.5-36.5); Mean Corpuscular Volume 78 fL (80-100); Mean Platelet Volume 8.4 fL (9.1-12.4); Platelet Count 414 K/mm3 (150-400); RDW Coefficient Variation 17.6 % (11.7-14.2); RDW Standard Deviation 50.6 fL (35.1-46.3); Red Blood Cell Count 3.55 M/mm3 (3.80-5.20); White Blood Cell Count 15.14 K/mm3 (4.00-11.30)
[2021-09-19 00:26] LABS: Albumin, Blood 2.9 g/dL (3.4-5.0); Albumin/Globulin Ratio 0.5 (0.8-1.8); Bilirubin, Total 0.2 mg/dL (0.1-1.0); Bun/Creatinine Ratio 27.9 (12.0-20.0); Calcium, Blood 9.7 mg/dL (8.5-10.1); Creatinine, Blood 0.97 mg/dL (0.40-1.00); Globulin, Blood 6.3 g/dL (2.2-4.0); Potassium, Blood 5.5 mmol/L (3.5-5.5); Total Protein, Blood 9.2 g/dL (6.4-8.2)
[2021-09-19 00:32] LABS: BAND PERCENT MAN 4 % (0-8); BASOPHILS PERCENT MAN 0 % (0-2); EOSINOPHILS ABSOLUTE MAN 0.15 K/mm3 (0.00-0.68); EOSINOPHILS PERCENT MAN 1 % (0-6); LYMPHOCYTES ABSOLUTE MAN 2.72 K/mm3 (0.84-5.20); LYMPHOCYTES PERCENT MAN 18 % (21-46); METAMYELOCYTE PERCENT MAN 2 % (0-0); MONOCYTES ABSOLUTE MAN 0.45 K/mm3 (0.16-1.47); MONOCYTES PERCENT MAN 3 % (4-13); SEG NEUTROPHILS PERCENT MAN 72 % (41-73); TOTAL CELLS COUNTED 100
[2021-09-19 02:15] LABS: Influenza A, PCR NEGATIVE (NEGATIVE); Influenza B, PCR NEGATIVE (NEGATIVE); Resp Syncytial Virus, PCR NEGATIVE (NEGATIVE); SARS-Cov-2 (COVID-19) PCR, MMC NEGATIVE (NEGATIVE)
[2021-09-19 02:42] LABS: Source, Urine Clean Catch
[2021-09-19 02:49] LABS: Bilirubin, Urine Neg (Neg); Blood, Urine 4+ (Neg); Glucose Qualitative, Urine Neg (Neg); Ketones, Urine Neg (Neg); Leukocyte Esterase, Urine 3+ (Neg); Nitrite, Urine Neg (Neg); Protein, Urine 2+ (Neg); Specific Gravity, Urine 1.015 (1.003-1.022); Urobilinogen, Urine NORM (Normal)
[2021-09-19 02:51] LABS: Appearance, Urine Hazy (Clear); Color, Urine Yellow (P-Yellow)
[2021-09-19 02:54] LABS: Bacteria Many /hpf; Squamous Epithelial Cells Few /hpf (Few); White Blood Cells, Urine TNTC /hpf (0-5)
[2021-09-19] MEDS ORDERED: METF500 PO (05:53)
[2021-09-19] MEDS ORDERED: FERREX 150150 M1 PO (05:54)
--- NOTE | 2021-09-19 07:24 | NUR ---
Rn summary: Patient was admitted to 341 from the ED via W/C. Patient is alert and oriented x4. Patient breath sounds are diminished but clear. Pt has had some respiratory issues since covid last year. Pt has lost 60 lbs in the last 10 months. Patient denies pain at this time. Nourinary urgency noted at this time. Up ad dori in room and to BR. Pull ups in place for occ incontinence with cough. Pt was oriented to room, call light in reach.
[2021-09-19 11:32] LABS: BASOPHILS ABSOLUTE AUTO 0.08 K/mm3 (0.00-0.23); BASOPHILS PERCENT AUTO 1 % (0-2); EOSINOPHILS ABSOLUTE AUTO 0.26 K/mm3 (0.00-0.68); EOSINOPHILS PERCENT AUTO 2 % (0-6); Hematocrit 24.9 % (33.0-51.0); Hemoglobin 7.5 g/dL (11.5-16.0); IMMATURE GRAN ABSOLUTE AUTO 0.52 K/mm3 (0.00-0.10); IMMATURE GRAN PERCENT AUTO 3 % (0-1); LYMPHOCYTES ABSOLUTE AUTO 2.18 K/mm3 (0.84-5.20); LYMPHOCYTES PERCENT AUTO 14 % (21-46); MONOCYTES ABSOLUTE AUTO 1.42 K/mm3 (0.16-1.47); MONOCYTES PERCENT AUTO 9 % (4-13); Mean Corpuscular HGB 23.4 pg (26.0-34.0); Mean Corpuscular HGB Conc 30.1 g/dL (31.5-36.5); Mean Corpuscular Volume 78 fL (80-100); Mean Platelet Volume 8.4 fL (9.1-12.4); NEUTROPHILS PERCENT AUTO 72 % (41-73); Platelet Count 393 K/mm3 (150-400); RDW Coefficient Variation 17.5 % (11.7-14.2); RDW Standard Deviation 50.3 fL (35.1-46.3); Red Blood Cell Count 3.21 M/mm3 (3.80-5.20); White Blood Cell Count 15.86 K/mm3 (4.00-11.30)
[2021-09-19 12:22] LABS: Albumin, Blood 2.8 g/dL (3.4-5.0); Albumin/Globulin Ratio 0.5 (0.8-1.8); Bilirubin, Total 0.4 mg/dL (0.1-1.0); Calcium, Blood 9.2 mg/dL (8.5-10.1); Creatinine, Blood 0.86 mg/dL (0.40-1.00); Globulin, Blood 5.2 g/dL (2.2-4.0); Potassium, Blood 5.1 mmol/L (3.5-5.5)
--- NOTE | 2021-09-19 12:48 | NUR ---
Spiritual care visit conducted. Upon receiving a referral for spiritual care, I visit pt. Pt talks at length about her long medical history, her family unit complications and her struggle with depression. She also shares about her children ages 31, 15 and 13, her supportive and her [employer]ian belief system. We discuss her current fears and personal struggles. I normalize her experience, reinforce helpful attitudes and practices, and proive therapeutic listening, axiety containment, gentle automobile travel club counselor and prayer. Patient responds well and voices that she is encouraged and felt like the time was meaningful. I will continue to assist pt on reframing the her perspective about her challenges and her relationship to them.
--- NOTE | 2021-09-19 17:41 | NUR ---
PATIENT HAD AN EPISODE OF NAUSEA THIS AM. SHE WAS TREATED WITH ODT ZOFRAN EFFECTIVELY. INSULIN ORDERS AND SLIDING SCALE COVERATE WERE ENTERED THIS MORNING. PATIENT HAS AN ORDER FOR COUGH MEDICATION WHICH WAS USED X 1. BOTH BAGS OF IV FLUID HAVE RUN, AND ARE COMPLETED. PATIENT HAD A BM THIS AFTERNOON.
--- NOTE | 2021-09-20 04:06 | NUR ---
SHIFT SUMMARY PT PLEASANT AND COOPERATIVE. PT HAS HX OF DEPRESSION AND HAD AN EPISODE OF CRYING EARLIER LAST NIGHT. PT HAS A SLIGHTLY ELEVATED HR AND A TEMP OF 100.0. PT MEDICATED FOR PAIN AND FEVER PER EMAR. PT SLEEPING SHORT BURSTS AT A TIME TONIGHT. PT STS SHE DOES NOT SLEEP WELL AT NIGHT USUALLY. PT HAS NO COMPLAINTS AT THIS TIME. CALL LIGHT WITHIN HER REACH.
[2021-09-20 05:44] LABS: BASOPHILS ABSOLUTE AUTO 0.07 K/mm3 (0.00-0.23); BASOPHILS PERCENT AUTO 0 % (0-2); EOSINOPHILS ABSOLUTE AUTO 0.31 K/mm3 (0.00-0.68); EOSINOPHILS PERCENT AUTO 2 % (0-6); Hematocrit 24.3 % (33.0-51.0); Hemoglobin 7.3 g/dL (11.5-16.0); IMMATURE GRAN ABSOLUTE AUTO 0.44 K/mm3 (0.00-0.10); IMMATURE GRAN PERCENT AUTO 3 % (0-1); LYMPHOCYTES ABSOLUTE AUTO 2.04 K/mm3 (0.84-5.20); LYMPHOCYTES PERCENT AUTO 13 % (21-46); MONOCYTES ABSOLUTE AUTO 1.52 K/mm3 (0.16-1.47); MONOCYTES PERCENT AUTO 10 % (4-13); Mean Corpuscular HGB 23.2 pg (26.0-34.0); Mean Corpuscular Volume 77 fL (80-100); Mean Platelet Volume 8.8 fL (9.1-12.4); NEUTROPHILS ABSOLUTE AUTO 11.35 K/mm3 (1.96-9.15); NEUTROPHILS PERCENT AUTO 72 % (41-73); Platelet Count 384 K/mm3 (150-400); RDW Coefficient Variation 17.6 % (11.7-14.2); RDW Standard Deviation 49.6 fL (35.1-46.3); Red Blood Cell Count 3.15 M/mm3 (3.80-5.20); White Blood Cell Count 15.73 K/mm3 (4.00-11.30)
[2021-09-20 06:15] LABS: Albumin, Blood 2.6 g/dL (3.4-5.0); Albumin/Globulin Ratio 0.5 (0.8-1.8); Bilirubin, Total 0.4 mg/dL (0.1-1.0); Bun/Creatinine Ratio 24.8 (12.0-20.0); Calcium, Blood 9.3 mg/dL (8.5-10.1); Creatinine, Blood 0.97 mg/dL (0.40-1.00); Globulin, Blood 5.7 g/dL (2.2-4.0); Potassium, Blood 4.7 mmol/L (3.5-5.5); Total Protein, Blood 8.3 g/dL (6.4-8.2)
--- NOTE | 2021-09-20 16:33 | NUR ---
PATIENT IS ALERT AND ORIENTED AND COOPERATIVE WITH CARE. C/O NV THIS AFTERNOON, MEDICATED PER EMAR. NO BM YET THIS SHIFT. NO C/O PAIN. PATIENT'S AND KIDS AT THE BEDSIDE. GOT UP IN THE CHAIR FOR LUNCH. WILL CONTINUE TO MONITOR
[2021-09-21 05:26] LABS: BASOPHILS ABSOLUTE AUTO 0.09 K/mm3 (0.00-0.23); BASOPHILS PERCENT AUTO 1 % (0-2); EOSINOPHILS ABSOLUTE AUTO 0.34 K/mm3 (0.00-0.68); EOSINOPHILS PERCENT AUTO 2 % (0-6); Hematocrit 22.5 % (33.0-51.0); Hemoglobin 6.8 g/dL (11.5-16.0); IMMATURE GRAN ABSOLUTE AUTO 0.39 K/mm3 (0.00-0.10); IMMATURE GRAN PERCENT AUTO 3 % (0-1); LYMPHOCYTES ABSOLUTE AUTO 2.81 K/mm3 (0.84-5.20); LYMPHOCYTES PERCENT AUTO 20 % (21-46); MONOCYTES ABSOLUTE AUTO 1.19 K/mm3 (0.16-1.47); MONOCYTES PERCENT AUTO 9 % (4-13); Mean Corpuscular HGB 23.4 pg (26.0-34.0); Mean Corpuscular HGB Conc 30.2 g/dL (31.5-36.5); Mean Corpuscular Volume 77 fL (80-100); Mean Platelet Volume 8.7 fL (9.1-12.4); NEUTROPHILS ABSOLUTE AUTO 9.07 K/mm3 (1.96-9.15); NEUTROPHILS PERCENT AUTO 65 % (41-73); Platelet Count 367 K/mm3 (150-400); RDW Coefficient Variation 17.7 % (11.7-14.2); RDW Standard Deviation 50.1 fL (35.1-46.3); Red Blood Cell Count 2.91 M/mm3 (3.80-5.20); White Blood Cell Count 13.89 K/mm3 (4.00-11.30)
[2021-09-21 05:53] LABS: Albumin, Blood 2.5 g/dL (3.4-5.0); Albumin/Globulin Ratio 0.4 (0.8-1.8); Bilirubin, Total 0.3 mg/dL (0.1-1.0); Bun/Creatinine Ratio 27.7 (12.0-20.0); Calcium, Blood 9.6 mg/dL (8.5-10.1); Creatinine, Blood 1.01 mg/dL (0.40-1.00); Globulin, Blood 5.8 g/dL (2.2-4.0); Potassium, Blood 4.6 mmol/L (3.5-5.5); Total Protein, Blood 8.3 g/dL (6.4-8.2)
--- NOTE | 2021-09-21 06:38 | NUR ---
SHIFT SUMMARY: VSS, NO ACUTE CHANGES THIS SHIFT. PATIENT DENIES PAIN OR DISCOMFORT.
[2021-09-21 13:40] LABS: Hematocrit 25.7 % (33.0-51.0); Hemoglobin 7.8 g/dL (11.5-16.0)
--- NOTE | 2021-09-21 18:33 | NUR ---
SHIFT SUMMARY PT AXO, PLEASANT AND COOPERATIVE WITH CARE. VSS. BLOOD ADMINISTERED THIS SHIFT PER ORDER. POST INFUSION H&H STABLE, SEE LABS. PT DENIES PAIN WITH URINATION THOUGH STATES WHEN SHE HAS TO GO, IT'S URGENT. PT REPORTS SOME INCONTINENCE WELL. PT DENIES PAIN, SOB AND N/V. NO OTHER CHANGES THIS SHIFT. BED IN LOW POSITION, CALL LIGHT WITHIN REACH. UP AD ENID IN ROOM WITH STEADY GAIT. BM X1 THIS SHIFT.
[2021-09-22 05:44] LABS: BASOPHILS ABSOLUTE AUTO 0.07 K/mm3 (0.00-0.23); BASOPHILS PERCENT AUTO 1 % (0-2); EOSINOPHILS ABSOLUTE AUTO 0.27 K/mm3 (0.00-0.68); EOSINOPHILS PERCENT AUTO 2 % (0-6); Hematocrit 23.2 % (33.0-51.0); Hemoglobin 7.1 g/dL (11.5-16.0); IMMATURE GRAN ABSOLUTE AUTO 0.59 K/mm3 (0.00-0.10); IMMATURE GRAN PERCENT AUTO 4 % (0-1); LYMPHOCYTES ABSOLUTE AUTO 2.42 K/mm3 (0.84-5.20); LYMPHOCYTES PERCENT AUTO 17 % (21-46); MONOCYTES ABSOLUTE AUTO 1.54 K/mm3 (0.16-1.47); MONOCYTES PERCENT AUTO 11 % (4-13); Mean Corpuscular HGB 23.7 pg (26.0-34.0); Mean Corpuscular HGB Conc 30.6 g/dL (31.5-36.5); Mean Corpuscular Volume 77 fL (80-100); Mean Platelet Volume 8.8 fL (9.1-12.4); NEUTROPHILS ABSOLUTE AUTO 9.72 K/mm3 (1.96-9.15); NEUTROPHILS PERCENT AUTO 67 % (41-73); Platelet Count 354 K/mm3 (150-400); RDW Coefficient Variation 17.5 % (11.7-14.2); RDW Standard Deviation 49.4 fL (35.1-46.3); White Blood Cell Count 14.61 K/mm3 (4.00-11.30)
[2021-09-22 05:52] LABS: Albumin, Blood 2.4 g/dL (3.4-5.0); Albumin/Globulin Ratio 0.4 (0.8-1.8); Bilirubin, Total 0.4 mg/dL (0.1-1.0); Bun/Creatinine Ratio 29.5 (12.0-20.0); Calcium, Blood 9.3 mg/dL (8.5-10.1); Creatinine, Blood 0.98 mg/dL (0.40-1.00); Globulin, Blood 5.5 g/dL (2.2-4.0); Potassium, Blood 4.6 mmol/L (3.5-5.5); Total Protein, Blood 7.9 g/dL (6.4-8.2)
--- NOTE | 2021-09-22 06:36 | NUR ---
SITE PROMOTION AGENT SUMMARY ADMITTED FOR SEPSIS/UTI. PT IS FULL CODE. SHE HAS BEEN INDEPENDENT IN THE ROOM. NO COMPLAINTS OF PAIN THROUGHOUT THE NIGHT. WBC COUNT ELEVATED FROM 13.89 TO 14.61. HGB IS 7.1 TODAY. SHE HAS BEEN HAVING SOME DIARRHEA YESTERDAY SO MIRALAX WAS HELD. SINUS RHYTHM ON TELE.
--- NOTE | 2021-09-22 09:00 | NUR ---
PKT A/O X3 PLEASANT TALKING, DENIES PAIN AT THIS TIME. HR REG, NO MURMUR NOTED. PER TELE S TACH AT 101. LUNGS CLEAR T/O. ON R.A. BT X4 HYPERQACTIVE. PT HAD DIARRHEA YEST. NONE YET TODAY. VOIDS INDEPENDANT TO BATHROOM. BED IN LOW POSITION, CALL LITE IN REACH, CALLS APPROP
[2021-09-22 12:22] LABS: BASOPHILS ABSOLUTE AUTO 0.06 K/mm3 (0.00-0.23); BASOPHILS PERCENT AUTO 0 % (0-2); EOSINOPHILS ABSOLUTE AUTO 0.17 K/mm3 (0.00-0.68); EOSINOPHILS PERCENT AUTO 1 % (0-6); Hematocrit 23.9 % (33.0-51.0); Hemoglobin 7.2 g/dL (11.5-16.0); IMMATURE GRAN ABSOLUTE AUTO 0.56 K/mm3 (0.00-0.10); IMMATURE GRAN PERCENT AUTO 4 % (0-1); LYMPHOCYTES ABSOLUTE AUTO 1.99 K/mm3 (0.84-5.20); LYMPHOCYTES PERCENT AUTO 14 % (21-46); MONOCYTES ABSOLUTE AUTO 1.53 K/mm3 (0.16-1.47); MONOCYTES PERCENT AUTO 11 % (4-13); Mean Corpuscular HGB 23.4 pg (26.0-34.0); Mean Corpuscular HGB Conc 30.1 g/dL (31.5-36.5); Mean Corpuscular Volume 78 fL (80-100); Mean Platelet Volume 8.6 fL (9.1-12.4); NEUTROPHILS ABSOLUTE AUTO 9.92 K/mm3 (1.96-9.15); NEUTROPHILS PERCENT AUTO 70 % (41-73); Platelet Count 366 K/mm3 (150-400); RDW Coefficient Variation 17.7 % (11.7-14.2); RDW Standard Deviation 49.7 fL (35.1-46.3); Red Blood Cell Count 3.08 M/mm3 (3.80-5.20); White Blood Cell Count 14.23 K/mm3 (4.00-11.30)
[2021-09-22] MEDS ORDERED: CEPH500 PO (15:23)
[2021-09-22] MEDS ORDERED: HIPREX1 G1 PO (15:27)
--- NOTE | 2021-09-22 16:14 | NUR ---
DISCHARGE REVIEWED WITH PT. SHE VERBALIZED UNDERSTANDING MEDS AND INST. LAB DRAW FRIDAY. IV PULLED INTACCT. TELE REMOVED AND RETURNED. PT WHEELED TO DOOR BY AIDE AT 1615
== END 2021-09-22 16:24 | disposition home or self-care (01) | DRG 872 ==
LOC: ER 23:28 → MEDS 09-19 03:53
PROVIDERS: Emergency Medicine; Family Medicine; ADMIT Family Medicine
PROC: 3E03329 Introduction of Other Anti-infective into Peripheral Vein, Percutaneous Approach (ICD-10-PCS; principal; 2021-09-19)
PROC: 30233N1 Transfusion of Nonautologous Red Blood Cells into Peripheral Vein, Percutaneous Approach (ICD-10-PCS; 2021-09-21)
DX: A41.51 Sepsis due to Escherichia coli [E. coli] (principal); E87.1 Hypo-osmolality and hyponatremia; N10 Acute pyelonephritis; Z68.43 Body mass index [BMI] 50.0-59.9, adult; K59.00 Constipation, unspecified; D75.839 Thrombocytosis, unspecified; M79.81 Nontraumatic hematoma of soft tissue; E11.9 Type 2 diabetes mellitus without complications; I10 Essential (primary) hypertension; Z20.822 Contact with and (suspected) exposure to COVID-19; K21.9 Gastro-esophageal reflux disease without esophagitis; F41.1 Generalized anxiety disorder; E66.01 Morbid (severe) obesity due to excess calories; E78.00 Pure hypercholesterolemia, unspecified; R32 Unspecified urinary incontinence; D50.9 Iron deficiency anemia, unspecified; Z85.038 Personal history of other malignant neoplasm of large intestine; Z98.890 Other specified postprocedural states; Z86.16 Personal history of COVID-19; Z88.8 Allergy status to other drugs, medicaments and biological substances; Z79.899 Other long term (current) drug therapy; Z79.811 Long term (current) use of aromatase inhibitors; Z79.4 Long term (current) use of insulin
CPT/HCPCS: 0241U; 36415; 36430; 74018; 74177; 80053; 81001; 81025; 82947; 83605; 85014; 85018; 85025; 86850; 86900; 86901; 86923; 87040; 87077; 87086; 87186; 94760; 96374; 99285; A9270; J0696; J1650; J1815; J1885; J7030; J7040; P9016; Q9967

== ENCOUNTER → 2021-10-18 | Outpatient (CLI) | payer OTHER ==
[~2021-10-18] MED LIST changes: +FERREX 150150 M1 PO; +HIPREX1 G1 PO
== END | disposition home or self-care (01) ==
LOC: LAB SHORT 16:28 → LAB 16:28
DX: N39.0 Urinary tract infection, site not specified (principal)
CPT/HCPCS: 87086

== ENCOUNTER → 2021-12-10 | Outpatient (CLI) | payer OTHER | END | disposition home or self-care (01) | LOC: LAB 17:22 → LAB SHORT 17:22 | DX: N39.0 Urinary tract infection, site not specified (principal) | CPT/HCPCS: 87077; 87086; 87186 ==

== ENCOUNTER → 2021-12-21 | Outpatient (CLI) | payer OTHER | END | disposition home or self-care (01) | LOC: LAB 19:01 → LAB SHORT 19:01 | DX: N39.0 Urinary tract infection, site not specified (principal) | CPT/HCPCS: 87077; 87086; 87186 ==

== ENCOUNTER → 2022-01-02 | Outpatient (CLI) | payer OTHER | END | disposition home or self-care (01) | LOC: LAB 14:33 → LAB SHORT 14:33 | DX: N39.0 Urinary tract infection, site not specified (principal) | CPT/HCPCS: 87086 ==

== ENCOUNTER → 2022-04-20 | Outpatient (CLI) | payer OTHER | END | disposition home or self-care (01) | LOC: LAB 17:25 → LAB SHORT 17:25 | DX: N39.0 Urinary tract infection, site not specified (principal) | CPT/HCPCS: 87077; 87086; 87186 ==

== ENCOUNTER → 2022-07-02 | Outpatient (CLI) | payer OTHER | END | disposition home or self-care (01) | LOC: LAB 13:35 → LAB SHORT 13:35 | DX: R19.7 Diarrhea, unspecified (principal) | CPT/HCPCS: 82653 ==

== ENCOUNTER 2022-08-17 19:14 | Inpatient (IN) | payer OTHER ==
[~2022-08-17] VITALS: Ht 170.2 cm; Wt 162.6 kg
[2022-08-17 19:27] LABS: Source, Urine Clean Catch
[2022-08-17 19:31] LABS: Appearance, Urine Turbid (Clear); Bilirubin, Urine Neg (Neg); Blood, Urine 3+ (Neg); Color, Urine Yellow (P-Yellow); Glucose Qualitative, Urine 1+ (Neg); Ketones, Urine Neg (Neg); Leukocyte Esterase, Urine 3+ (Neg); Nitrite, Urine Neg (Neg); Protein, Urine 3+ (Neg); Urobilinogen, Urine NORM (Normal)
[2022-08-17 19:40] LABS: White Blood Cells, Urine TNTC /hpf (0-5)
[2022-08-17 19:41] LABS: Bacteria Many /hpf; Mucus Light (0-Heavy); Squamous Epithelial Cells Mod /hpf (Few)
[2022-08-17 20:10] LABS: BASOPHILS ABSOLUTE AUTO 0.09 K/mm3 (0.00-0.23); BASOPHILS PERCENT AUTO 1 % (0-2); EOSINOPHILS ABSOLUTE AUTO 0.48 K/mm3 (0.00-0.68); EOSINOPHILS PERCENT AUTO 4 % (0-6); Hematocrit 41.3 % (33.0-51.0); Hemoglobin 13.6 g/dL (11.5-16.0); IMMATURE GRAN ABSOLUTE AUTO 0.17 K/mm3 (0.00-0.10); IMMATURE GRAN PERCENT AUTO 1 % (0-1); LYMPHOCYTES ABSOLUTE AUTO 2.52 K/mm3 (0.84-5.20); LYMPHOCYTES PERCENT AUTO 21 % (21-46); MONOCYTES ABSOLUTE AUTO 0.86 K/mm3 (0.16-1.47); MONOCYTES PERCENT AUTO 7 % (4-13); Mean Corpuscular HGB 29.6 pg (26.0-34.0); Mean Corpuscular HGB Conc 32.9 g/dL (31.5-36.5); Mean Corpuscular Volume 90 fL (80-100); Mean Platelet Volume 9.6 fL (9.1-12.4); NEUTROPHILS ABSOLUTE AUTO 7.98 K/mm3 (1.96-9.15); NEUTROPHILS PERCENT AUTO 66 % (41-73); Platelet Count 217 K/mm3 (150-400); RDW Coefficient Variation 13.3 % (11.7-14.2); RDW Standard Deviation 43.8 fL (35.1-46.3)
[2022-08-17 20:27] LABS: Albumin, Blood 3.5 g/dL (3.4-5.0); Albumin/Globulin Ratio 0.9 (0.8-1.8); Bilirubin, Total 0.2 mg/dL (0.1-1.0); Bun/Creatinine Ratio 17.4 (12.0-20.0); Calcium, Blood 8.8 mg/dL (8.5-10.1); Creatinine, Blood 0.92 mg/dL (0.40-1.00); Globulin, Blood 3.9 g/dL (2.2-4.0); Potassium, Blood 4.5 mmol/L (3.5-5.5); Total Protein, Blood 7.4 g/dL (6.4-8.2)
[2022-08-17 22:16] VITALS: BP 174/98
[2022-08-18 00:41] LABS: BASOPHILS ABSOLUTE AUTO 0.09 K/mm3 (0.00-0.23); BASOPHILS PERCENT AUTO 1 % (0-2); EOSINOPHILS ABSOLUTE AUTO 0.44 K/mm3 (0.00-0.68); EOSINOPHILS PERCENT AUTO 4 % (0-6); Hematocrit 38.3 % (33.0-51.0); Hemoglobin 12.3 g/dL (11.5-16.0); IMMATURE GRAN ABSOLUTE AUTO 0.15 K/mm3 (0.00-0.10); IMMATURE GRAN PERCENT AUTO 1 % (0-1); LYMPHOCYTES PERCENT AUTO 23 % (21-46); MONOCYTES ABSOLUTE AUTO 0.88 K/mm3 (0.16-1.47); MONOCYTES PERCENT AUTO 7 % (4-13); Mean Corpuscular HGB Conc 32.1 g/dL (31.5-36.5); Mean Corpuscular Volume 90 fL (80-100); Mean Platelet Volume 9.5 fL (9.1-12.4); NEUTROPHILS PERCENT AUTO 64 % (41-73); Platelet Count 190 K/mm3 (150-400); RDW Coefficient Variation 13.3 % (11.7-14.2); RDW Standard Deviation 43.9 fL (35.1-46.3); Red Blood Cell Count 4.24 M/mm3 (3.80-5.20); White Blood Cell Count 11.96 K/mm3 (4.00-11.30)
[2022-08-18 01:00] LABS: Albumin, Blood 3.1 g/dL (3.4-5.0); Albumin/Globulin Ratio 0.9 (0.8-1.8); Bilirubin, Total 0.1 mg/dL (0.1-1.0); Bun/Creatinine Ratio 18.9 (12.0-20.0); Calcium, Blood 8.7 mg/dL (8.5-10.1); Creatinine, Blood 0.85 mg/dL (0.40-1.00); Globulin, Blood 3.5 g/dL (2.2-4.0); Magnesium, Blood 1.2 mg/dL (1.6-2.4); Potassium, Blood 4.4 mmol/L (3.5-5.5); Total Protein, Blood 6.6 g/dL (6.4-8.2)
[2022-08-18 04:51] VITALS: BP 148/94
--- NOTE | 2022-08-18 05:28 | NUR ---
SHIFT SUMMARY AOX4. ADMITTED LAST NIGHT FOR SEPSIS R/T UTI. BP SLIGHTLY ELEVATED UPON ARRIVAL TO FLOOR, THIS AM BP 148/94, WHILE PT RESTING COMFORTABLY. REST OF VITALS STABLE. REPORTS MILD R FLANK PAIN LOW BACK, DENIES NEED FOR MEDICATION. REPORTS BURNING c URINATION, URINE IS CLOUDY, YELLOW & FOUL SMELLING. HAS OCC INCONTINENCE, ESPECIALLY c UTI'S PER PT, NATE PADS IN PLACE. DENIES N/V OR DYSPNEA. HS CBG @235, GAVE 50U LONG ACTING INSULIN, WHICH PT NORMALLY TAKES. LA TRENDED DOWN FROM 3.4 TO 2.8, STILL CRITICAL- DR FREEMAN ORDERED 1L NS @75ML/HR. CALL LIGHT IN REACH.
[2022-08-18 07:29] VITALS: BP 149/95
[2022-08-18 14:58] VITALS: BP 137/79
--- NOTE | 2022-08-18 15:13 | NUR ---
SHIFT SUMMARY: CHRONIC UTI'S PATIENT IS A&OX4. VS ARE WNL AND IS ON RA. PATIENT SO FAR HAS ONLY STATED PAIN FROM A "HEADACHE" BUT WAS MANAGED WITH PO TYELNOL. SHE IS A SBA TO THE BATHROOM DUE TO IV POLE AND CORDS. SHE IS TOLERATING PO INTAKE AND IS VOIDING. PATIENT REPORTED "MY PEE ISN'T BURNING MUCH TODAY WHICH IS NICE". IV FLUIDS AND ABX ARE RUNNING. PATIENT IS LAYING IN BED WITH FAMILY AT BEDSIDE AND CALL LIGHT IN REACH. PATIENT CALLS APPROPRIATELY THROUGHOUT SHIFT.
[2022-08-18 19:53] VITALS: BP 165/90
--- NOTE | 2022-08-18 20:01 | NUR ---
CALL TO HOSPITALIST PT REPORTS TYLENOL DID NOT RELIEVE HEADACHES, CALL TO HOSPITALIST TO REQUEST IBU THIS IS NORMALLY WHAT IS USED AT HOME FOR HEADACHES.
[2022-08-19 04:55] LABS: BASOPHILS ABSOLUTE AUTO 0.06 K/mm3 (0.00-0.23); BASOPHILS PERCENT AUTO 1 % (0-2); EOSINOPHILS ABSOLUTE AUTO 0.52 K/mm3 (0.00-0.68); EOSINOPHILS PERCENT AUTO 6 % (0-6); Hematocrit 36.4 % (33.0-51.0); Hemoglobin 11.9 g/dL (11.5-16.0); IMMATURE GRAN ABSOLUTE AUTO 0.18 K/mm3 (0.00-0.10); IMMATURE GRAN PERCENT AUTO 2 % (0-1); LYMPHOCYTES ABSOLUTE AUTO 2.24 K/mm3 (0.84-5.20); LYMPHOCYTES PERCENT AUTO 24 % (21-46); MONOCYTES ABSOLUTE AUTO 0.76 K/mm3 (0.16-1.47); MONOCYTES PERCENT AUTO 8 % (4-13); Mean Corpuscular HGB 29.5 pg (26.0-34.0); Mean Corpuscular HGB Conc 32.7 g/dL (31.5-36.5); Mean Corpuscular Volume 90 fL (80-100); Mean Platelet Volume 9.3 fL (9.1-12.4); NEUTROPHILS ABSOLUTE AUTO 5.77 K/mm3 (1.96-9.15); NEUTROPHILS PERCENT AUTO 61 % (41-73); Platelet Count 178 K/mm3 (150-400); RDW Coefficient Variation 13.2 % (11.7-14.2); RDW Standard Deviation 43.4 fL (35.1-46.3); Red Blood Cell Count 4.03 M/mm3 (3.80-5.20); White Blood Cell Count 9.53 K/mm3 (4.00-11.30)
[2022-08-19 05:16] LABS: Albumin/Globulin Ratio 0.9 (0.8-1.8); Bilirubin, Total 0.3 mg/dL (0.1-1.0); Bun/Creatinine Ratio 15.7 (12.0-20.0); Calcium, Blood 8.2 mg/dL (8.5-10.1); Creatinine, Blood 0.83 mg/dL (0.40-1.00); Globulin, Blood 3.4 g/dL (2.2-4.0); Magnesium, Blood 1.7 mg/dL (1.6-2.4); Potassium, Blood 4.1 mmol/L (3.5-5.5); Total Protein, Blood 6.4 g/dL (6.4-8.2)
[2022-08-19 05:42] VITALS: BP 145/91
--- NOTE | 2022-08-19 06:35 | NUR ---
SHIFT SUMMARY PT ADMIT FOR SEPSIS UTI. PT DOING WELL THIS SHIFT W/ NO ACUTE CHANGES. REPORTS NO PAIN W/ URINATION. USE OF ADULT BRIEF R/T URGENCY INCONT. W/ UTI SYMPTOMS. INDEPENDANT IN ROOM/ BATHROOM. VSS, PT DENIES CP, SOB, N/T, N/V. PT REPORTS HEADACHE EARLY THIS SHIFT AND UNRELIEVED W/ TYLENOL. PROVIDER NOTIFIED AND V/O FOR ADVIL, PROVIDED RELIEF. PT SLEPT MOST OF THE NIGHT. NO ACUTE CHANGES THIS SHIFT. WILL REPORT TO DAY SHIFT.
[2022-08-19 07:20] VITALS: BP 142/92
--- NOTE | 2022-08-19 11:09 | NUR ---
C/O H/A, IBUPROFEN GIVEN, PT STATES IBUPROFEN WORKS BETTER THAN TYLENOL FOR HER H/A, CONT. TO MONITOR FOR ANY CHANGES.
[2022-08-19 15:26] VITALS: BP 150/90
--- NOTE | 2022-08-19 18:30 | NUR ---
SUMMARY INDEPENDENT IN ROOM, AMBULATED DOWN THE HALLS TODAY, TOLERATED WELL, REPORTS CONT. TO HAVE SOME URINARY URGENCY, BUT "BETTER" TODAY, CONT. IV ABX, AWAIT CULTURE RESULTS, C/O COOPER TODAY, BETTER AFTER TAKING IBUPROFEN, NO ACUTE CHANGES THIS SHIFT.
[2022-08-19 20:27] VITALS: BP 173/94
[2022-08-20 05:19] VITALS: BP 140/84
--- NOTE | 2022-08-20 06:16 | NUR ---
SHIFT SUMMARY AOX4. VSS. DENIES N/V, DYSPNEA OR PAIN. DOES REPORT STILL HAVING FREQUENCY & URGENCY c URINATION. STATES BURNING FEELING c URINATION HAS IMPROVED. SLEPT SOUNDLY T/O NIGHT, IND IN RM. PT HOPING TO DC HOME TODAY, CALL LIGHT IN REACH.
[2022-08-20 07:02] VITALS: BP 130/82
[2022-08-20 10:59] LABS: Creatinine, Blood 0.81 mg/dL (0.40-1.00)
[2022-08-20 11:01] LABS: Vancomycin, Trough 23.7 ug/mL (5.0-10.0)
[2022-08-20] MEDS ORDERED: Diflucan100 MG PO (11:30)
[2022-08-20] MEDS ORDERED: SULTRIDS PO (11:31)
[2022-08-20 11:58] VITALS: BP 157/95
--- NOTE | 2022-08-20 12:45 | NUR ---
DC'D HOME, DC INSTRUCTIONS GIVEN, VERBALIZED UNDERSTANDING.
== END 2022-08-20 12:25 | disposition home or self-care (01) | DRG 872 ==
LOC: ER 19:14 → SURS 21:19
PROVIDERS: Family Medicine; Physician Assistant; ADMIT Student in an Organized Health Care Education/Training Program
DX: A41.51 Sepsis due to Escherichia coli [E. coli] (principal); N39.0 Urinary tract infection, site not specified; E87.20 Acidosis, unspecified; Z68.43 Body mass index [BMI] 50.0-59.9, adult; Z66 Do not resuscitate; E11.9 Type 2 diabetes mellitus without complications; I10 Essential (primary) hypertension; K21.9 Gastro-esophageal reflux disease without esophagitis; F41.1 Generalized anxiety disorder; E66.01 Morbid (severe) obesity due to excess calories; E83.42 Hypomagnesemia; Z85.038 Personal history of other malignant neoplasm of large intestine; Z87.448 Personal history of other diseases of urinary system; Z98.890 Other specified postprocedural states; Z88.8 Allergy status to other drugs, medicaments and biological substances; Z87.01 Personal history of pneumonia (recurrent); Z79.4 Long term (current) use of insulin; Z79.811 Long term (current) use of aromatase inhibitors; Z79.84 Long term (current) use of oral hypoglycemic drugs; Z86.16 Personal history of COVID-19; Z86.19 Personal history of other infectious and parasitic diseases
CPT/HCPCS: 36415; 80053; 80202; 81001; 82565; 82947; 83605; 83735; 85025; 87077; 87086; 87186; 93005; 93010; 96374; 99284-25; A9270; J0696; J1650; J1815; J2405; J3370; J3475; J7030; J7050; J7120

== ENCOUNTER 2022-09-02 19:48 | Emergency (ER) | payer OTHER ==
[~2022-09-02] VITALS: Ht 170.2 cm; Wt 149.7 kg
[~2022-09-02 19:48] MED LIST changes: +Diflucan100 MG PO; +SULTRIDS PO
[2022-09-02 20:41] LABS: Source, Urine Voided
[2022-09-02 20:46] LABS: BASOPHILS PERCENT AUTO 1 % (0-2); EOSINOPHILS ABSOLUTE AUTO 0.33 K/mm3 (0.00-0.68); EOSINOPHILS PERCENT AUTO 3 % (0-6); Hematocrit 43.2 % (33.0-51.0); Hemoglobin 14.2 g/dL (11.5-16.0); IMMATURE GRAN ABSOLUTE AUTO 0.22 K/mm3 (0.00-0.10); IMMATURE GRAN PERCENT AUTO 2 % (0-1); LYMPHOCYTES ABSOLUTE AUTO 3.14 K/mm3 (0.84-5.20); LYMPHOCYTES PERCENT AUTO 23 % (21-46); MONOCYTES ABSOLUTE AUTO 0.94 K/mm3 (0.16-1.47); MONOCYTES PERCENT AUTO 7 % (4-13); Mean Corpuscular HGB 29.7 pg (26.0-34.0); Mean Corpuscular HGB Conc 32.9 g/dL (31.5-36.5); Mean Corpuscular Volume 90 fL (80-100); Mean Platelet Volume 9.4 fL (9.1-12.4); NEUTROPHILS ABSOLUTE AUTO 8.72 K/mm3 (1.96-9.15); NEUTROPHILS PERCENT AUTO 65 % (41-73); Platelet Count 246 K/mm3 (150-400); RDW Coefficient Variation 13.5 % (11.7-14.2); RDW Standard Deviation 44.3 fL (35.1-46.3); Red Blood Cell Count 4.78 M/mm3 (3.80-5.20); White Blood Cell Count 13.45 K/mm3 (4.00-11.30)
[2022-09-02 20:48] LABS: Appearance, Urine Cloudy (Clear); Bilirubin, Urine Neg (Neg); Blood, Urine 2+ (Neg); Color, Urine Yellow (P-Yellow); Glucose Qualitative, Urine Neg (Neg); Ketones, Urine Neg (Neg); Leukocyte Esterase, Urine 3+ (Neg); Nitrite, Urine Neg (Neg); Protein, Urine 2+ (Neg); Specific Gravity, Urine 1.015 (1.003-1.022); Urobilinogen, Urine NORM (Normal)
[2022-09-02 21:04] LABS: Bacteria Mod /hpf; Squamous Epithelial Cells Rare /hpf (Few); White Blood Cells, Urine TNTC /hpf (0-5)
[2022-09-02 21:06] LABS: Albumin, Blood 3.6 g/dL (3.4-5.0); Albumin/Globulin Ratio 0.8 (0.8-1.8); Bilirubin, Total 0.2 mg/dL (0.1-1.0); Bun/Creatinine Ratio 23.1 (12.0-20.0); Creatinine, Blood 0.91 mg/dL (0.40-1.00); Globulin, Blood 4.5 g/dL (2.2-4.0); Potassium, Blood 4.4 mmol/L (3.5-5.5); Total Protein, Blood 8.1 g/dL (6.4-8.2)
[2022-09-02] MEDS ORDERED: Bactrim Ds Tab1 EACH PO (22:19)
[2022-09-02 22:55] VITALS: BP 149/74
== END 2022-09-02 22:57 | disposition home or self-care (01) ==
LOC: ER 19:48
PROVIDERS: Emergency Medicine
DX: N39.0 Urinary tract infection, site not specified (principal); Z88.8 Allergy status to other drugs, medicaments and biological substances; Z79.899 Other long term (current) drug therapy; Z79.4 Long term (current) use of insulin; Z79.84 Long term (current) use of oral hypoglycemic drugs; E11.9 Type 2 diabetes mellitus without complications; I10 Essential (primary) hypertension; K21.9 Gastro-esophageal reflux disease without esophagitis; E66.01 Morbid (severe) obesity due to excess calories; E78.5 Hyperlipidemia, unspecified
CPT/HCPCS: 80053; 81001; 85025; 87086; 99283; A9270

== ENCOUNTER → 2022-09-09 | Outpatient (CLI) | payer OTHER ==
[~2022-09-09] MED LIST changes: +Bactrim Ds Tab1 EACH PO
[2022-09-11 13:08] LABS: Candida species (DNA Probe) Negative (NEGATIVE); G. vaginalis (DNA Probe) Negative (NEGATIVE); T. vaginalis (DNA Probe) Negative (NEGATIVE)
== END ==
LOC: LAB 15:17 → LAB SHORT 15:17
PROVIDERS: Family Medicine
DX: N39.0 Urinary tract infection, site not specified (principal)
CPT/HCPCS: 87480; 87510; 87660

== ENCOUNTER 2022-12-10 19:08 | Emergency (ER) | payer OTHER ==
[~2022-12-10] VITALS: Ht 172.7 cm; Wt 157.0 kg
[2022-12-10 20:01] LABS: BASOPHILS ABSOLUTE AUTO 0.09 K/mm3 (0.00-0.23); BASOPHILS PERCENT AUTO 1 % (0-2); EOSINOPHILS ABSOLUTE AUTO 0.43 K/mm3 (0.00-0.68); EOSINOPHILS PERCENT AUTO 4 % (0-6); Hematocrit 43.8 % (33.0-51.0); Hemoglobin 14.3 g/dL (11.5-16.0); IMMATURE GRAN ABSOLUTE AUTO 0.24 K/mm3 (0.00-0.10); IMMATURE GRAN PERCENT AUTO 2 % (0-1); LYMPHOCYTES ABSOLUTE AUTO 2.85 K/mm3 (0.84-5.20); LYMPHOCYTES PERCENT AUTO 23 % (21-46); MONOCYTES ABSOLUTE AUTO 0.91 K/mm3 (0.16-1.47); MONOCYTES PERCENT AUTO 7 % (4-13); Mean Corpuscular HGB 29.5 pg (26.0-34.0); Mean Corpuscular HGB Conc 32.6 g/dL (31.5-36.5); Mean Corpuscular Volume 90 fL (80-100); Mean Platelet Volume 9.5 fL (9.1-12.4); NEUTROPHILS ABSOLUTE AUTO 7.88 K/mm3 (1.96-9.15); NEUTROPHILS PERCENT AUTO 64 % (41-73); Platelet Count 234 K/mm3 (150-400); RDW Standard Deviation 42.5 fL (35.1-46.3); Red Blood Cell Count 4.85 M/mm3 (3.80-5.20)
[2022-12-10 20:31] LABS: Albumin, Blood 3.7 g/dL (3.4-5.0); Albumin/Globulin Ratio 0.9 (0.8-1.8); Bilirubin, Total 0.2 mg/dL (0.1-1.0); Bun/Creatinine Ratio 19.8 (12.0-20.0); Calcium, Blood 9.2 mg/dL (8.5-10.1); Creatinine, Blood 0.96 mg/dL (0.40-1.00); Globulin, Blood 4.2 g/dL (2.2-4.0); Potassium, Blood 4.5 mmol/L (3.5-5.5); Total Protein, Blood 7.9 g/dL (6.4-8.2)
[2022-12-10 22:34] LABS: Source, Urine Clean Catch
[2022-12-10 22:43] LABS: Appearance, Urine Hazy (Clear); Bilirubin, Urine Neg (Neg); Blood, Urine 5+ (Neg); Glucose Qualitative, Urine Neg (Neg); Ketones, Urine Neg (Neg); Leukocyte Esterase, Urine Neg (Neg); Nitrite, Urine Neg (Neg); Protein, Urine 2+ (Neg); Specific Gravity, Urine 1.015 (1.003-1.022); Urobilinogen, Urine NORM (Normal)
[2022-12-10 22:57] LABS: Color, Urine Pale Yellow (P-Yellow)
[2022-12-10 22:58] LABS: Amorphous Light (0-Heavy); Bacteria Few /hpf; Squamous Epithelial Cells Few /hpf (Few); White Blood Cells, Urine 0-2 /hpf (0-5)
[2022-12-10] MEDS ORDERED: TAMS.4ER PO (23:57)
[2022-12-10] MEDS ORDERED: ACET500 PO (23:57)
[2022-12-10] MEDS ORDERED: Ibuprofen600 MG PO (23:57)
[2022-12-11] VITALS: BP 142/83
== END 2022-12-11 00:30 | disposition home or self-care (01) ==
LOC: ER 19:08
PROVIDERS: Student in an Organized Health Care Education/Training Program
DX: R10.32 Left lower quadrant pain (principal); R11.2 Nausea with vomiting, unspecified; D72.829 Elevated white blood cell count, unspecified; E11.9 Type 2 diabetes mellitus without complications; I10 Essential (primary) hypertension; E78.5 Hyperlipidemia, unspecified; Z88.8 Allergy status to other drugs, medicaments and biological substances; Z79.4 Long term (current) use of insulin; Z79.84 Long term (current) use of oral hypoglycemic drugs; Z79.899 Other long term (current) drug therapy; Z68.43 Body mass index [BMI] 50.0-59.9, adult
CPT/HCPCS: 74177; 80053; 81001; 83690; 85025; 96361; 96374; 96375; 99284-25; J1170; J1885; J2270; J2405; J7030; Q9967

== ENCOUNTER → 2022-12-23 | Outpatient (CLI) | payer OTHER ==
[~2022-12-23] MED LIST changes: +ACET500 PO; +Ibuprofen600 MG PO; +TAMS.4ER PO
[2022-12-23 17:50] LABS: Source, Urine Clean Catch
[2022-12-23 19:16] LABS: Appearance, Urine Clear (Clear); Bilirubin, Urine Neg (Neg); Blood, Urine 2+ (Neg); Glucose Qualitative, Urine 4+ (Neg); Ketones, Urine Neg (Neg); Leukocyte Esterase, Urine Neg (Neg); Nitrite, Urine Neg (Neg); Protein, Urine 2+ (Neg); Urobilinogen, Urine NORM (Normal)
[2022-12-23 19:26] LABS: Color, Urine Pale Yellow (P-Yellow)
[2022-12-23 19:27] LABS: Squamous Epithelial Cells Mod /hpf (Few); Uric Acid Crystals Few /hpf
[2022-12-23 19:28] LABS: Bacteria Mod /hpf
== END | disposition home or self-care (01) ==
LOC: LAB SHORT 17:49 → LAB 17:49
PROVIDERS: Obstetrics & Gynecology
DX: N34.2 Other urethritis (principal)
CPT/HCPCS: 81001; 87086

== ENCOUNTER 2023-03-07 08:16 | Day surgery (SDC) | payer OTHER ==
[~2023-03-07] VITALS: Ht 170.2 cm; Wt 157.2 kg
[~2023-03-07 08:16] MED LIST changes: +ALBU90OI INH; +NYSTRIT TOP
--- NOTE | 2023-03-07 09:30 | NUR ---
Ambulatory in Day Surgery History, Chart, Medications and Allergies reviewed before start of procedure.Pre-Op teaching done. Pt verbalizes understanding. Patient confirms NPO status and agrees with scheduled surgery. Patient States Post-Procedure ride home has been arranged.
[2023-03-07 09:31] VITALS: BP 115/60
--- NOTE | 2023-03-07 10:08 | NUR ---
03/07/[address] HUANG; SEE ANESTHESIA RECORDS.
[2023-03-07 11:32] VITALS: BP 114/62
[2023-03-07 11:45] VITALS: BP 105/64
[2023-03-07 12:00] VITALS: BP 109/60
--- NOTE | 2023-03-07 12:13 | NUR ---
Patient up to Ambulate independently. Gait steady. Discharge instructions reviewed with patient. Patient verbalizes understanding. Copy given to patient to take home, WELL FAMILY. Patient States Post-Procedure ride home has been arranged. Discharged via wheelchair to private car for ride home.
== END 2023-03-07 12:13 | disposition home or self-care (01) ==
LOC: ORSCMMR 08:16 → ORD 09:30 → ORSCMMR 09:30
PROVIDERS: Internal Medicine Gastroenterology
PROC: 0DB98ZX Excision of Duodenum, Via Natural or Artificial Opening Endoscopic, Diagnostic (ICD-10-PCS; principal; 2023-03-07 09:30)
PROC: 0DBE8ZX Excision of Large Intestine, Via Natural or Artificial Opening Endoscopic, Diagnostic (ICD-10-PCS; principal; 2023-03-07 09:30)
PROC: 0DBK8ZX Excision of Ascending Colon, Via Natural or Artificial Opening Endoscopic, Diagnostic (ICD-10-PCS; principal; 2023-03-07 09:30)
PROC: 0DB68ZX Excision of Stomach, Via Natural or Artificial Opening Endoscopic, Diagnostic (ICD-10-PCS; principal; 2023-03-07 09:30)
DX: K52.9 Noninfective gastroenteritis and colitis, unspecified (principal); Z86.010 Personal history of colon polyps; Z80.0 Family history of malignant neoplasm of digestive organs; K57.30 Diverticulosis of large intestine without perforation or abscess without bleeding; K64.8 Other hemorrhoids; F41.9 Anxiety disorder, unspecified; G47.33 Obstructive sleep apnea (adult) (pediatric); F32.A Depression, unspecified; E78.00 Pure hypercholesterolemia, unspecified; E11.22 Type 2 diabetes mellitus with diabetic chronic kidney disease; I12.9 Hypertensive chronic kidney disease with stage 1 through stage 4 chronic kidney disease, or unspecified chronic kidney disease; N18.30 Chronic kidney disease, stage 3 unspecified; J45.909 Unspecified asthma, uncomplicated; E66.01 Morbid (severe) obesity due to excess calories; Z68.43 Body mass index [BMI] 50.0-59.9, adult; Z79.84 Long term (current) use of oral hypoglycemic drugs; Z79.899 Other long term (current) drug therapy
CPT/HCPCS: 82947; 88305; 88342; J2001; J2704; J7120

== ENCOUNTER → 2023-07-08 | Outpatient (CLI) | payer OTHER | END | disposition home or self-care (01) | LOC: LAB SHORT 18:32 → LAB 18:32 | DX: N39.0 Urinary tract infection, site not specified (principal) | CPT/HCPCS: 87077; 87086; 87186 ==

== ENCOUNTER → 2023-09-01 | Outpatient (CLI) | payer OTHER | LOC: LAB 17:12 → LAB SHORT 17:12 | DX: N39.0 Urinary tract infection, site not specified (principal) | CPT/HCPCS: 87077; 87086; 87186 ==

== ENCOUNTER → 2023-11-18 | Outpatient (CLI) | payer OTHER | END | disposition home or self-care (01) | LOC: LAB SHORT 17:17 → LAB 17:17 | DX: R10.9 Unspecified abdominal pain (principal) | CPT/HCPCS: 87077; 87086; 87186 ==

== ENCOUNTER → 2023-12-01 | Outpatient (CLI) | payer OTHER | LOC: LAB 17:54 → LAB SHORT 17:54 | DX: N39.0 Urinary tract infection, site not specified (principal) | CPT/HCPCS: 87086 ==

== ENCOUNTER → 2023-12-31 | Outpatient (CLI) | payer OTHER ==
[2024-01-08 13:47] LABS: HPV HIGH RISK BY TMA Not Detected; HPV SOURCE Cervical/Vag
== END | disposition home or self-care (01) ==
LOC: LAB SHORT 15:28 → LAB 15:28
PROVIDERS: Obstetrics & Gynecology
DX: Z01.419 Encounter for gynecological examination (general) (routine) without abnormal findings (principal)
CPT/HCPCS: 87624; G0123

== ENCOUNTER → 2024-02-11 | Outpatient (CLI) | payer OTHER | END | disposition home or self-care (01) | LOC: LAB SHORT 16:29 → LAB 16:29 | DX: N39.0 Urinary tract infection, site not specified (principal) | CPT/HCPCS: 87077; 87086; 87186 ==

== ENCOUNTER 2024-05-31 02:45 | Emergency (ER) | payer OTHER ==
[~2024-05-31] VITALS: Ht 170.2 cm; Wt 138.3 kg
[~2024-05-31 02:45] MED LIST changes: +VITAMIN D350 MC3 PO
[2024-05-31 03:28] LABS: BASOPHILS ABSOLUTE AUTO 0.12 K/mm3 (0.00-0.23); BASOPHILS PERCENT AUTO 1 % (0-2); EOSINOPHILS ABSOLUTE AUTO 0.65 K/mm3 (0.00-0.68); EOSINOPHILS PERCENT AUTO 3 % (0-6); Hematocrit 43.8 % (33.0-51.0); IMMATURE GRAN ABSOLUTE AUTO 0.23 K/mm3 (0.00-0.10); IMMATURE GRAN PERCENT AUTO 1 % (0-1); LYMPHOCYTES PERCENT AUTO 11 % (21-46); MONOCYTES ABSOLUTE AUTO 1.15 K/mm3 (0.16-1.47); MONOCYTES PERCENT AUTO 6 % (4-13); Mean Corpuscular HGB 29.2 pg (26.0-34.0); Mean Corpuscular Volume 91 fL (80-100); NEUTROPHILS ABSOLUTE AUTO 15.62 K/mm3 (1.96-9.15); NEUTROPHILS PERCENT AUTO 79 % (41-73); Platelet Count 286 K/mm3 (150-400); RDW Coefficient Variation 13.2 % (11.7-14.2); RDW Standard Deviation 44.6 fL (35.1-46.3); White Blood Cell Count 19.87 K/mm3 (4.00-11.30)
[2024-05-31] MEDS ORDERED: Ondansetron HCl 2 MG / ML 2ML Vial IV ONE (03:55)
[2024-05-31] MEDS ORDERED: FentaNYL Citrate 50 MCG/ML 2 ML Injection IV ONE (03:55)
[2024-05-31 04:00] LABS: Albumin, Blood 3.4 g/dL (3.4-5.0); Albumin/Globulin Ratio 0.8 (0.8-1.8); Bilirubin, Total 0.3 mg/dL (0.1-1.0); Bun/Creatinine Ratio 23.4 (12.0-20.0); Calcium, Blood 9.3 mg/dL (8.5-10.1); Creatinine, Blood 1.71 mg/dL (0.40-1.00); Globulin, Blood 4.3 g/dL (2.2-4.0); Total Protein, Blood 7.7 g/dL (6.4-8.2)
[2024-05-31] MEDS ORDERED: NS 1,000 ML IV SCH (04:00)
[2024-05-31 04:37] LABS: Source, Urine Voided
[2024-05-31 04:42] LABS: Bilirubin, Urine Neg (Neg); Blood, Urine Neg (Neg); Glucose Qualitative, Urine 4+ (Neg); Ketones, Urine Neg (Neg); Leukocyte Esterase, Urine 1+ (Neg); Nitrite, Urine Neg (Neg); Protein, Urine Neg (Neg); Specific Gravity, Urine 1.015 (1.003-1.022); Urobilinogen, Urine NORM (Normal)
[2024-05-31 04:53] LABS: Appearance, Urine Clear (Clear); Color, Urine Yellow (P-Yellow)
[2024-05-31 04:54] LABS: Bacteria Mod /hpf; Red Blood Cells, Urine Not Seen /hpf (0-2); Squamous Epithelial Cells Few /hpf (Few)
[2024-05-31] MEDS ORDERED: Ketorolac Tromethamine 30mg Vial IV ONE (05:15)
[2024-05-31] MEDS ORDERED: CefTRIAXone Sodium 1,000 MG in NS 50 ML IV ONE (05:15)
[2024-05-31] MEDS ORDERED: CEFD300 PO (07:22)
[2024-05-31] MEDS ORDERED: ONDA4ODT MM (07:22)
[2024-05-31] MEDS ORDERED: OXAYDO5 M1 PO (07:22)
[2024-05-31 07:45] VITALS: BP 137/86
[2024-06-01] MEDS ORDERED: ALPR.25 PO (14:16)
[2024-06-01] MEDS ORDERED: INSULANI (14:18)
[2024-06-01] MEDS ORDERED: MYRBETRIQ25 MG (14:19)
[2024-06-01] MEDS ORDERED: NYSTATIN15 GM TOP (14:20)
== END 2024-05-31 08:08 | disposition home or self-care (01) ==
LOC: ER 02:45
PROVIDERS: Student in an Organized Health Care Education/Training Program
DX: N39.0 Urinary tract infection, site not specified (principal); D72.829 Elevated white blood cell count, unspecified; C79.9 Secondary malignant neoplasm of unspecified site; C78.5 Secondary malignant neoplasm of large intestine and rectum; C78.6 Secondary malignant neoplasm of retroperitoneum and peritoneum; C79.89 Secondary malignant neoplasm of other specified sites; R10.9 Unspecified abdominal pain; I10 Essential (primary) hypertension; E11.9 Type 2 diabetes mellitus without complications; K21.9 Gastro-esophageal reflux disease without esophagitis; E78.5 Hyperlipidemia, unspecified; Z88.5 Allergy status to narcotic agent; Z79.899 Other long term (current) drug therapy; Z79.4 Long term (current) use of insulin; Z79.84 Long term (current) use of oral hypoglycemic drugs; Z79.51 Long term (current) use of inhaled steroids
CPT/HCPCS: 36415; 74177; 80053; 81001; 83605; 83690; 85025; 87040; 87086; 93005; 93010; 96365-59; 96366; 96375; 99284-25; J0696; J1885; J2405; J3010; J7030; Q9967

== ENCOUNTER 2024-06-04 07:20 | Day surgery (SDC) | payer OTHER ==
[~2024-06-04] VITALS: Ht 170.2 cm; Wt 136.6 kg
[~2024-06-04 07:20] MED LIST changes: +CEFD300 PO; +INSULANI; +Lactated Ringer's 1,000 ML IV SCH; +MYRBETRIQ25 MG; +NYSTATIN15 GM TOP; +OXAYDO5 M1 PO
[2024-06-04] MEDS ORDERED: propofoL 50 ML IV ONE (07:26)
[2024-06-04 07:51] VITALS: BP 124/71
--- NOTE | 2024-06-04 07:59 | NUR ---
Ambulatory in Day Surgery. History, Chart, Medications and Allergies reviewed before start of procedure. Pre-Op teaching done. Pt verbalizes understanding. Patient States Post-Procedure ride home has been arranged.
--- NOTE | 2024-06-04 08:06 | NUR ---
06/04/24 0806 Kelsey Garcia History, Chart, Medications and Allergies reviewed before start of procedure. MONITOR INTACT WITH CONTINUOUS PULSE OXIMETRY, CONTINUOUS END TITAL CO2, 3-LEAD EKG AND INTERMITTENT BLOOD PRESSURE. O2 VIA POM INTACT THROUGHOUT SEDATION/PROCEDURE. See Anesthesia record FROM DR. PALMER.
[2024-06-04] MEDS ORDERED: Lidocaine HCl 2% 10 ML SDA ONE (08:10)
[2024-06-04] MEDS ORDERED: Ipratropium/Albuterol SulF 2.5-0.5MG/3 ML Amp ONE (08:13)
[2024-06-04] MEDS ORDERED: Lidocaine HCl 2% 20 MG/ML 5ML SYR IV ONE (08:15)
[2024-06-04] MEDS ORDERED: Ipratropium/Albuterol SulF 2.5-0.5MG/3 ML Amp INH SCH (08:15)
[2024-06-04] MEDS ORDERED: Lidocaine HCl 1% 5 ML SYR INJ ONE (08:15)
[2024-06-04] MEDS ORDERED: Lidocaine HCl 2% 10 ML SDA INH ONE (08:25)
[2024-06-04 09:15] VITALS: BP 90/49
--- NOTE | 2024-06-04 09:15 | NUR ---
PT TO DAY SURGERY STEP DOWN FROM EGD AND COLONOSCOPY. PT IS SLEEPY, BUT IS ORIENTED AND SPEAKS WHEN SPOKEN TO; ABLE TO MOVE SELF IN BED. PT HAS NO COMPLAINTS.
--- NOTE | 2024-06-04 09:24 | NUR ---
PT AWAKE, TOLERATING PO FLUIDS WELL.
--- NOTE | 2024-06-04 09:28 | NUR ---
Discharge instructions reviewed with patient. Patient verbalizes understanding. Copy given to patient to take home. Patient States Post-Procedure ride home has been arranged.
[2024-06-04 09:29] VITALS: BP 96/65
[2024-06-04] MEDS ORDERED: Phenylephrine HCl 100 MCG/ML-NS 10MLSYR (1MG/10ML) ONE (09:38)
[2024-06-04] MEDS ORDERED: Vasopressin 20 UNITS/ML 1ML Vial ONE (09:38)
--- NOTE | 2024-06-04 09:46 | NUR ---
Patient up to Ambulate independently. Gait steady. Discharged via wheelchair to private car for ride home.
== END 2024-06-04 09:47 | disposition home or self-care (01) ==
LOC: ORSCMMR 07:20 → ORD 08:15 → ORSCMMR 08:15 → ORSCSDS 06-08 12:15
PROVIDERS: Internal Medicine Gastroenterology
PROC: 0DBN8ZX Excision of Sigmoid Colon, Via Natural or Artificial Opening Endoscopic, Diagnostic (ICD-10-PCS; principal; 2024-06-04 08:15)
PROC: 0DBM8ZX Excision of Descending Colon, Via Natural or Artificial Opening Endoscopic, Diagnostic (ICD-10-PCS; principal; 2024-06-04 08:15)
PROC: 0DJ08ZZ Inspection of Upper Intestinal Tract, Via Natural or Artificial Opening Endoscopic (ICD-10-PCS; principal; 2024-06-04 08:15)
DX: R93.3 Abnormal findings on diagnostic imaging of other parts of digestive tract (principal); R10.9 Unspecified abdominal pain; Z85.038 Personal history of other malignant neoplasm of large intestine; K57.30 Diverticulosis of large intestine without perforation or abscess without bleeding; K64.4 Residual hemorrhoidal skin tags; E11.9 Type 2 diabetes mellitus without complications; I10 Essential (primary) hypertension; K21.9 Gastro-esophageal reflux disease without esophagitis; F41.9 Anxiety disorder, unspecified; E66.9 Obesity, unspecified; Z68.42 Body mass index [BMI] 45.0-49.9, adult; E78.5 Hyperlipidemia, unspecified; Z79.4 Long term (current) use of insulin; Z79.84 Long term (current) use of oral hypoglycemic drugs; Z79.899 Other long term (current) drug therapy
CPT/HCPCS: 82947; 88305; J2003; J2371; J2704; J7120

== ENCOUNTER 2024-06-11 22:00 | Emergency (ER) | payer OTHER ==
[~2024-06-11] VITALS: Ht 170.2 cm; Wt 133.8 kg
[~2024-06-11 22:00] MED LIST changes: -Lactated Ringer's 1,000 ML IV SCH
[2024-06-11] MEDS ORDERED: Ondansetron HCl 2 MG / ML 2ML Vial IV ONE (22:40)
[2024-06-11 23:06] LABS: BASOPHILS PERCENT AUTO 1 % (0-2); EOSINOPHILS ABSOLUTE AUTO 0.36 K/mm3 (0.00-0.68); EOSINOPHILS PERCENT AUTO 3 % (0-6); Hemoglobin 13.7 g/dL (11.5-16.0); IMMATURE GRAN ABSOLUTE AUTO 0.15 K/mm3 (0.00-0.10); IMMATURE GRAN PERCENT AUTO 1 % (0-1); LYMPHOCYTES ABSOLUTE AUTO 2.29 K/mm3 (0.84-5.20); LYMPHOCYTES PERCENT AUTO 18 % (21-46); MONOCYTES ABSOLUTE AUTO 0.87 K/mm3 (0.16-1.47); MONOCYTES PERCENT AUTO 7 % (4-13); Mean Corpuscular HGB 29.3 pg (26.0-34.0); Mean Corpuscular HGB Conc 31.9 g/dL (31.5-36.5); Mean Corpuscular Volume 92 fL (80-100); NEUTROPHILS ABSOLUTE AUTO 8.97 K/mm3 (1.96-9.15); NEUTROPHILS PERCENT AUTO 70 % (41-73); Platelet Count 294 K/mm3 (150-400); RDW Coefficient Variation 13.2 % (11.7-14.2); Red Blood Cell Count 4.67 M/mm3 (3.80-5.20); White Blood Cell Count 12.74 K/mm3 (4.00-11.30)
[2024-06-11 23:22] LABS: Albumin, Blood 3.4 g/dL (3.4-5.0); Albumin/Globulin Ratio 0.8 (0.8-1.8); Bilirubin, Total 0.2 mg/dL (0.1-1.0); Bun/Creatinine Ratio 22.6 (12.0-20.0); Calcium, Blood 8.3 mg/dL (8.5-10.1); Creatinine, Blood 1.46 mg/dL (0.40-1.00); Globulin, Blood 4.1 g/dL (2.2-4.0); Potassium, Blood 3.8 mmol/L (3.5-5.5); Total Protein, Blood 7.5 g/dL (6.4-8.2)
[2024-06-12 00:37] LABS: Source, Urine Clean Catch
[2024-06-12 00:45] LABS: Bilirubin, Urine Neg (Neg); Blood, Urine 1+ (Neg); Glucose Qualitative, Urine 4+ (Neg); Ketones, Urine Neg (Neg); Leukocyte Esterase, Urine 1+ (Neg); Nitrite, Urine Neg (Neg); Protein, Urine Neg (Neg); Urobilinogen, Urine NORM (Normal)
[2024-06-12 01:02] LABS: Appearance, Urine Hazy (Clear); Color, Urine Pale Yellow (P-Yellow)
[2024-06-12 01:04] LABS: Bacteria Mod /hpf; Red Blood Cells, Urine 0-2 /hpf (0-2); Squamous Epithelial Cells Many /hpf (Few)
[2024-06-12] MEDS ORDERED: FentaNYL Citrate 50 MCG/ML 2 ML Injection IV ONE (02:25)
[2024-06-12] MEDS ORDERED: Ondansetron HCl 2 MG / ML 2ML Vial IV ONE (02:25)
[2024-06-12] MEDS ORDERED: NS 1,000 ML IV SCH (02:25)
[2024-06-12 03:33] LABS: Source, Urine Straight Cath
[2024-06-12 03:40] LABS: Bilirubin, Urine Neg (Neg); Blood, Urine 1+ (Neg); Glucose Qualitative, Urine 4+ (Neg); Ketones, Urine Neg (Neg); Leukocyte Esterase, Urine Neg (Neg); Nitrite, Urine Neg (Neg); Protein, Urine 1+ (Neg); Specific Gravity, Urine 1.015 (1.003-1.022); Urobilinogen, Urine NORM (Normal)
[2024-06-12 04:05] LABS: Appearance, Urine Hazy (Clear); Color, Urine Pale Yellow (P-Yellow)
[2024-06-12 04:07] LABS: Bacteria Mod /hpf; Red Blood Cells, Urine 0-2 /hpf (0-2); Squamous Epithelial Cells Many /hpf (Few); White Blood Cells, Urine 0-2 /hpf (0-5)
[2024-06-12] MEDS ORDERED: MORP15ER PO (05:41)
[2024-06-12 05:46] VITALS: BP 125/77
== END 2024-06-12 05:50 | disposition home or self-care (01) ==
LOC: ER 22:00
PROVIDERS: Student in an Organized Health Care Education/Training Program
DX: C18.9 Malignant neoplasm of colon, unspecified (principal); C78.7 Secondary malignant neoplasm of liver and intrahepatic bile duct; Z88.0 Allergy status to penicillin; Z79.899 Other long term (current) drug therapy; Z79.631 Long term (current) use of antimetabolite agent; Z79.4 Long term (current) use of insulin; E11.9 Type 2 diabetes mellitus without complications; I10 Essential (primary) hypertension; K21.9 Gastro-esophageal reflux disease without esophagitis; E78.5 Hyperlipidemia, unspecified
CPT/HCPCS: 74177; 80053; 81001; 83690; 85025; 87086; 96361; 96374; 96375; 99284; J2405; J3010; J7030; P9612; Q9967

== ENCOUNTER 2024-07-02 13:18 | Emergency (ER) | payer OTHER ==
[~2024-07-02] VITALS: Ht 170.2 cm; Wt 135.2 kg
[~2024-07-02 13:18] MED LIST changes: -INSULANI; +INSULANI SC; +MORP15ER PO
[2024-07-02 14:16] LABS: Albumin, Blood 3.3 g/dL (3.4-5.0); Albumin/Globulin Ratio 0.8 (0.8-1.8); Bilirubin, Total 0.2 mg/dL (0.1-1.0); Bun/Creatinine Ratio 21.4 (12.0-20.0); Calcium, Blood 9.4 mg/dL (8.5-10.1); Creatinine, Blood 1.31 mg/dL (0.40-1.00); Potassium, Blood 3.9 mmol/L (3.5-5.5); Total Protein, Blood 7.3 g/dL (6.4-8.2)
[2024-07-02 14:22] LABS: BASOPHILS PERCENT AUTO 1 % (0-2); EOSINOPHILS ABSOLUTE AUTO 0.46 K/mm3 (0.00-0.68); EOSINOPHILS PERCENT AUTO 4 % (0-6); Hematocrit 43.6 % (33.0-51.0); Hemoglobin 13.6 g/dL (11.5-16.0); IMMATURE GRAN ABSOLUTE AUTO 0.14 K/mm3 (0.00-0.10); IMMATURE GRAN PERCENT AUTO 1 % (0-1); LYMPHOCYTES ABSOLUTE AUTO 3.22 K/mm3 (0.84-5.20); LYMPHOCYTES PERCENT AUTO 26 % (21-46); MONOCYTES PERCENT AUTO 8 % (4-13); Mean Corpuscular HGB 29.2 pg (26.0-34.0); Mean Corpuscular HGB Conc 31.2 g/dL (31.5-36.5); Mean Corpuscular Volume 94 fL (80-100); Mean Platelet Volume 9.2 fL (9.1-12.4); NEUTROPHILS PERCENT AUTO 60 % (41-73); Platelet Count 236 K/mm3 (150-400); RDW Standard Deviation 44.2 fL (35.1-46.3); Red Blood Cell Count 4.66 M/mm3 (3.80-5.20); White Blood Cell Count 12.22 K/mm3 (4.00-11.30)
[2024-07-02 14:46] LABS: Source, Urine Clean Catch
[2024-07-02 14:49] LABS: Appearance, Urine Clear (Clear); Bilirubin, Urine Neg (Neg); Blood, Urine Neg (Neg); Color, Urine Yellow (P-Yellow); Glucose Qualitative, Urine 4+ (Neg); Ketones, Urine Neg (Neg); Leukocyte Esterase, Urine 1+ (Neg); Nitrite, Urine Neg (Neg); Protein, Urine Neg (Neg); Specific Gravity, Urine 1.025 (1.003-1.022); Urobilinogen, Urine NORM (Normal)
[2024-07-02 14:56] LABS: Bacteria Many /hpf; Red Blood Cells, Urine 0-2 /hpf (0-2); Squamous Epithelial Cells Mod /hpf (Few)
[2024-07-02] MEDS ORDERED: HYDROmorphone HCl/Pf 1MG SYR IV ONE ×2 (15:50→18:20)
[2024-07-02] MEDS ORDERED: NS 1,000 ML IV SCH (15:55)
[2024-07-02 17:07] LABS: Source, Urine Clean Catch
[2024-07-02 17:15] LABS: Appearance, Urine Clear (Clear); Bilirubin, Urine Neg (Neg); Blood, Urine Neg (Neg); Glucose Qualitative, Urine 4+ (Neg); Ketones, Urine Neg (Neg); Leukocyte Esterase, Urine Neg (Neg); Nitrite, Urine Neg (Neg); Protein, Urine Neg (Neg); Urobilinogen, Urine NORM (Normal)
[2024-07-02 17:35] LABS: Color, Urine Pale Yellow (P-Yellow)
[2024-07-02] MEDS ORDERED: HYDMOR2 PO (18:19)
[2024-07-02 19:00] VITALS: BP 127/58
== END 2024-07-02 19:17 | disposition home or self-care (01) ==
LOC: ER 13:18
PROVIDERS: Physician Assistant; Student in an Organized Health Care Education/Training Program
DX: C18.9 Malignant neoplasm of colon, unspecified (principal); E11.9 Type 2 diabetes mellitus without complications; I10 Essential (primary) hypertension; K21.9 Gastro-esophageal reflux disease without esophagitis; E78.5 Hyperlipidemia, unspecified; Z88.5 Allergy status to narcotic agent; Z79.2 Long term (current) use of antibiotics; Z79.84 Long term (current) use of oral hypoglycemic drugs; Z79.899 Other long term (current) drug therapy
CPT/HCPCS: 74177; 80053; 81001; 81003; 85025; 87086; 96361; 96374; 96376; 99284-25; J1171; J7030; Q9967

== ENCOUNTER 2024-07-04 22:14 | Observation (INO) | payer OTHER ==
[~2024-07-04] VITALS: Ht 170.2 cm; Wt 135.2 kg
[~2024-07-04 22:14] MED LIST changes: +HYDMOR2 PO
[2024-07-04 23:45] LABS: BASOPHILS ABSOLUTE AUTO 0.07 K/mm3 (0.00-0.23); BASOPHILS PERCENT AUTO 1 % (0-2); EOSINOPHILS ABSOLUTE AUTO 0.28 K/mm3 (0.00-0.68); EOSINOPHILS PERCENT AUTO 2 % (0-6); Hematocrit 43.5 % (33.0-51.0); Hemoglobin 13.7 g/dL (11.5-16.0); IMMATURE GRAN ABSOLUTE AUTO 0.16 K/mm3 (0.00-0.10); IMMATURE GRAN PERCENT AUTO 1 % (0-1); LYMPHOCYTES ABSOLUTE AUTO 2.33 K/mm3 (0.84-5.20); LYMPHOCYTES PERCENT AUTO 17 % (21-46); MONOCYTES ABSOLUTE AUTO 1.29 K/mm3 (0.16-1.47); MONOCYTES PERCENT AUTO 10 % (4-13); Mean Corpuscular HGB 28.2 pg (26.0-34.0); Mean Corpuscular HGB Conc 31.5 g/dL (31.5-36.5); Mean Corpuscular Volume 90 fL (80-100); NEUTROPHILS ABSOLUTE AUTO 9.52 K/mm3 (1.96-9.15); NEUTROPHILS PERCENT AUTO 70 % (41-73); Platelet Count 241 K/mm3 (150-400); RDW Coefficient Variation 12.9 % (11.7-14.2); RDW Standard Deviation 42.2 fL (35.1-46.3); Red Blood Cell Count 4.85 M/mm3 (3.80-5.20); White Blood Cell Count 13.65 K/mm3 (4.00-11.30)
[2024-07-05 00:04] LABS: Albumin, Blood 3.3 g/dL (3.4-5.0); Albumin/Globulin Ratio 0.8 (0.8-1.8); Bilirubin, Total 0.3 mg/dL (0.1-1.0); Bun/Creatinine Ratio 13.6 (12.0-20.0); Calcium, Blood 9.6 mg/dL (8.5-10.1); Creatinine, Blood 1.18 mg/dL (0.40-1.00); Globulin, Blood 4.3 g/dL (2.2-4.0); Potassium, Blood 3.8 mmol/L (3.5-5.5); Total Protein, Blood 7.6 g/dL (6.4-8.2)
[2024-07-05] MEDS ORDERED: NS 1,000 ML IV SCH (02:00)
[2024-07-05] MEDS ORDERED: HYDROmorphone HCl/Pf 1MG SYR IV PRN (02:00)
[2024-07-05] MEDS ORDERED: Ondansetron HCl 2 MG / ML 2ML Vial IV PRN (03:00)
[2024-07-05] MEDS ORDERED: OxyCODONE HCL 5 MG TAB PO PRN (03:00)
[2024-07-05] MEDS ORDERED: Naloxone HCl 0.4MG / ML 1ML Vial IV PRN (03:00)
[2024-07-05 03:24] LABS: Source, Urine Clean Catch
[2024-07-05 03:28] LABS: Bilirubin, Urine Neg (Neg); Blood, Urine Neg (Neg); Glucose Qualitative, Urine 4+ (Neg); Ketones, Urine Neg (Neg); Leukocyte Esterase, Urine Neg (Neg); Nitrite, Urine Neg (Neg); Protein, Urine Neg (Neg); Specific Gravity, Urine 1.015 (1.003-1.022); Urobilinogen, Urine NORM (Normal)
[2024-07-05 03:30] LABS: Appearance, Urine Clear (Clear); Color, Urine Yellow (P-Yellow)
[2024-07-05 04:25] VITALS: BP 151/85
[2024-07-05] MEDS ORDERED: METO100ER (05:20)
--- NOTE | 2024-07-05 05:54 | NUR ---
NEW ADMIT / SHIFT SUMMARY NEW ADMIT FOR INTRACTABLE ABD PAIN AND FEVER RECENT FEVER. PT HAS RECENT HX OF COLON CANCER DX WITH METS TO LIVER. PT ARRIVED TO ROOM AND ABLE TO SELF TRANSFER TO BED. PT A/OX4. PLEASANT. ORIENTED PT TO ROOM AND CALL LIGHT. SET UP PT CONT BIOX AND SCDS. PT DAUGHTER IN LAW PRESENT. PT EMOTIONAL ABOUT RECENT DX. PT STATES SHE HAS A REFERRAL TO [facility] TO HAVE A BIOPSY DONE. PT FEELING DESPAIRING ABOUT WAITING TIME FOR DX AND TREATMENT. PT REPORTS A 6/10 ABDOMINAL PAIN. PT GIVEN 1MG DILAUDID WITH LITTLE/NO IMPROVEMENT. PT REPORTS RECENT STOOLING HAS BEEN CONSTIPATED AND DIFFICULT TO PASS. PT TEMP IS 99, HOWEVER REPORTS HOME TEMP OF 102.5. FLUIDS STARTED PER MAY. PT TEARFUL OFF AND ON. PROVIDED SUPPORTIVE LISTENING.
[2024-07-05 06:31] LABS: BASOPHILS ABSOLUTE AUTO 0.08 K/mm3 (0.00-0.23); BASOPHILS PERCENT AUTO 1 % (0-2); EOSINOPHILS ABSOLUTE AUTO 0.23 K/mm3 (0.00-0.68); EOSINOPHILS PERCENT AUTO 2 % (0-6); Hemoglobin 12.6 g/dL (11.5-16.0); IMMATURE GRAN ABSOLUTE AUTO 0.12 K/mm3 (0.00-0.10); IMMATURE GRAN PERCENT AUTO 1 % (0-1); LYMPHOCYTES PERCENT AUTO 17 % (21-46); MONOCYTES ABSOLUTE AUTO 1.39 K/mm3 (0.16-1.47); MONOCYTES PERCENT AUTO 10 % (4-13); Mean Corpuscular HGB Conc 31.5 g/dL (31.5-36.5); Mean Corpuscular Volume 92 fL (80-100); Mean Platelet Volume 9.4 fL (9.1-12.4); NEUTROPHILS ABSOLUTE AUTO 9.77 K/mm3 (1.96-9.15); NEUTROPHILS PERCENT AUTO 70 % (41-73); Platelet Count 229 K/mm3 (150-400); RDW Coefficient Variation 12.9 % (11.7-14.2); RDW Standard Deviation 43.4 fL (35.1-46.3); Red Blood Cell Count 4.34 M/mm3 (3.80-5.20); White Blood Cell Count 13.89 K/mm3 (4.00-11.30)
[2024-07-05 06:53] LABS: Albumin, Blood 2.9 g/dL (3.4-5.0); Albumin/Globulin Ratio 0.7 (0.8-1.8); Bilirubin, Total 0.4 mg/dL (0.1-1.0); Bun/Creatinine Ratio 12.3 (12.0-20.0); Calcium, Blood 8.7 mg/dL (8.5-10.1); Creatinine, Blood 1.22 mg/dL (0.40-1.00); Potassium, Blood 3.5 mmol/L (3.5-5.5); Total Protein, Blood 6.9 g/dL (6.4-8.2)
[2024-07-05] MEDS ORDERED: Insulin Human Lispro 100 Units/ML 3ML Syringe SC SCH (07:30)
[2024-07-05 08:06] VITALS: BP 154/90
[2024-07-05] MEDS ORDERED: Metoprolol Succinate 50 MG TABCR PO SCH (09:00)
[2024-07-05] MEDS ORDERED: Venlafaxine HCl 75 MG CapCR PO SCH (09:00)
[2024-07-05] MEDS ORDERED: Docusate Sodium 100 MG Cap PO SCH (09:00)
[2024-07-05] MEDS ORDERED: Mag Sulfate 1 GM/D5% 100ML 100 ML IV STA (09:43)
[2024-07-05] MEDS ORDERED: NS 250 ML IV PRN (11:10)
--- NOTE | 2024-07-05 14:48 | NUR ---
DISCHARGE SUMMARY PATIENT EDUCATED ON DISCHARGE PACKET. NO NEW PRESCRIPTIONS. PATIENT TO FOLLOW UP WITH PCP. IV REMOVED. ESCORTED DOWNSTAIRS VIA WHEELCHAIR. PAIN MANAGED PRIOR TO DC. NO NEW QUESTIONS OR CONCERNS PRIOR TO DC.
[2024-07-05] MEDS ORDERED: QUEtiapine Fumarate 100 MG Tab PO SCH (21:00)
== END 2024-07-05 14:15 | disposition home or self-care (01) ==
LOC: ER 22:14 → ERHOLD 22:15 → MEDS 22:15
PROVIDERS: Emergency Medicine; ADMIT Student in an Organized Health Care Education/Training Program
DX: R16.0 Hepatomegaly, not elsewhere classified (principal); R10.84 Generalized abdominal pain; E11.22 Type 2 diabetes mellitus with diabetic chronic kidney disease; I12.9 Hypertensive chronic kidney disease with stage 1 through stage 4 chronic kidney disease, or unspecified chronic kidney disease; N18.9 Chronic kidney disease, unspecified; E66.01 Morbid (severe) obesity due to excess calories; K21.9 Gastro-esophageal reflux disease without esophagitis; E78.5 Hyperlipidemia, unspecified; N39.0 Urinary tract infection, site not specified; Z85.038 Personal history of other malignant neoplasm of large intestine; Z85.05 Personal history of malignant neoplasm of liver; Z88.8 Allergy status to other drugs, medicaments and biological substances; Z79.4 Long term (current) use of insulin; Z79.899 Other long term (current) drug therapy
CPT/HCPCS: 36415; 71046; 74177; 80053; 81003; 82947; 83735; 85025; 96374; 96375; 96376; 99285-25; A9270; G0378; J1171; J3475; J7030; J7050; P9612; Q9967

== ENCOUNTER 2024-07-15 18:43 | Emergency (ER) | payer OTHER ==
[~2024-07-15] VITALS: Ht 170.2 cm; Wt 131.5 kg
[~2024-07-15 18:43] MED LIST changes: +METO100ER
[2024-07-15 20:32] LABS: Source, Urine Clean Catch
[2024-07-15 20:35] LABS: BASOPHILS ABSOLUTE AUTO 0.08 K/mm3 (0.00-0.23); BASOPHILS PERCENT AUTO 1 % (0-2); EOSINOPHILS ABSOLUTE AUTO 0.53 K/mm3 (0.00-0.68); EOSINOPHILS PERCENT AUTO 4 % (0-6); Hematocrit 44.6 % (33.0-51.0); Hemoglobin 13.9 g/dL (11.5-16.0); IMMATURE GRAN ABSOLUTE AUTO 0.12 K/mm3 (0.00-0.10); IMMATURE GRAN PERCENT AUTO 1 % (0-1); LYMPHOCYTES ABSOLUTE AUTO 2.54 K/mm3 (0.84-5.20); LYMPHOCYTES PERCENT AUTO 19 % (21-46); MONOCYTES ABSOLUTE AUTO 1.16 K/mm3 (0.16-1.47); MONOCYTES PERCENT AUTO 9 % (4-13); Mean Corpuscular HGB 28.3 pg (26.0-34.0); Mean Corpuscular HGB Conc 31.2 g/dL (31.5-36.5); Mean Corpuscular Volume 91 fL (80-100); Mean Platelet Volume 9.3 fL (9.1-12.4); NEUTROPHILS ABSOLUTE AUTO 9.14 K/mm3 (1.96-9.15); NEUTROPHILS PERCENT AUTO 67 % (41-73); Platelet Count 259 K/mm3 (150-400); RDW Coefficient Variation 12.9 % (11.7-14.2); RDW Standard Deviation 42.5 fL (35.1-46.3); Red Blood Cell Count 4.92 M/mm3 (3.80-5.20); White Blood Cell Count 13.57 K/mm3 (4.00-11.30)
[2024-07-15 20:36] LABS: Appearance, Urine Hazy (Clear); Bilirubin, Urine Neg (Neg); Blood, Urine 4+ (Neg); Color, Urine Yellow (P-Yellow); Glucose Qualitative, Urine 4+ (Neg); Ketones, Urine Neg (Neg); Leukocyte Esterase, Urine Neg (Neg); Nitrite, Urine Neg (Neg); Protein, Urine Neg (Neg); Specific Gravity, Urine 1.015 (1.003-1.022); Urobilinogen, Urine NORM (Normal)
[2024-07-15 20:47] LABS: Albumin, Blood 3.3 g/dL (3.4-5.0); Albumin/Globulin Ratio 0.7 (0.8-1.8); Bilirubin, Total 0.3 mg/dL (0.1-1.0); Bun/Creatinine Ratio 17.7 (12.0-20.0); Calcium, Blood 9.8 mg/dL (8.5-10.1); Creatinine, Blood 1.64 mg/dL (0.40-1.00); Globulin, Blood 4.5 g/dL (2.2-4.0); Potassium, Blood 4.1 mmol/L (3.5-5.5); Total Protein, Blood 7.8 g/dL (6.4-8.2)
[2024-07-15 20:52] LABS: Bacteria Many /hpf; Red Blood Cells, Urine 25-50 /hpf (0-2); Squamous Epithelial Cells Many /hpf (Few)
[2024-07-16 00:30] VITALS: BP 169/117
[2024-07-16] MEDS ORDERED: Morphine Sulfate 4 MG/1 ML Injection IV ONE (00:45)
[2024-07-16] MEDS ORDERED: Ondansetron HCl 2 MG / ML 2ML Vial IV ONE (00:55)
[2024-07-16] MEDS ORDERED: Ketorolac Tromethamine 30mg Vial IV ONE (00:55)
[2024-07-16] MEDS ORDERED: NS 1,000 ML IV SCH (00:55)
[2024-07-19] MEDS ORDERED: MULVITA PO (10:27)
[2024-07-19] MEDS ORDERED: OXAYDO5 M2 PO (10:28)
[2024-07-19] MEDS ORDERED: MORP15ER PO (10:28)
[2024-07-19] MEDS ORDERED: MIRALAX17 GM PO (10:29)
[2024-07-27] MEDS ORDERED: CEPH500 PO (05:31)
== END 2024-07-16 03:00 | disposition home or self-care (01) ==
LOC: ER 18:43
PROVIDERS: Student in an Organized Health Care Education/Training Program
DX: G89.3 Neoplasm related pain (acute) (chronic) (principal); C18.9 Malignant neoplasm of colon, unspecified; C78.7 Secondary malignant neoplasm of liver and intrahepatic bile duct; N17.9 Acute kidney failure, unspecified; R31.9 Hematuria, unspecified; E11.9 Type 2 diabetes mellitus without complications; I10 Essential (primary) hypertension; K21.9 Gastro-esophageal reflux disease without esophagitis; E78.5 Hyperlipidemia, unspecified; Z79.4 Long term (current) use of insulin; Z79.899 Other long term (current) drug therapy; Z88.5 Allergy status to narcotic agent
CPT/HCPCS: 74177; 80053; 81001; 85025; 87086; 96361; 96374; 96375; 99284-25; J1885; J2270; J2405; J7030; Q9967

== ENCOUNTER 2024-07-30 00:10 | Observation (INO) | payer OTHER ==
[~2024-07-30] VITALS: Ht 170.2 cm; Wt 136.3 kg
[~2024-07-30 00:10] MED LIST changes: +MIRALAX17 GM PO; +MULVITA PO; +OXAYDO5 M2 PO
[2024-07-30] MEDS ORDERED: NS 1,000 ML IV SCH (05:20)
[2024-07-30] MEDS ORDERED: HYDROmorphone HCl/Pf 1MG SYR IV PRN ×2 (05:20→05:55)
[2024-07-30] MEDS ORDERED: Ondansetron HCl 2 MG / ML 2ML Vial IV PRN (05:50)
[2024-07-30] MEDS ORDERED: Naloxone HCl 0.4MG / ML 1ML Vial IV PRN (05:50)
[2024-07-30] MEDS ORDERED: Acetaminophen 325 MG TABLET PO PRN (05:50)
[2024-07-30] MEDS ORDERED: ALPRAZolam 0.25 MG Tab PO PRN (05:55)
[2024-07-30 05:58] LABS: BASOPHILS ABSOLUTE AUTO 0.06 K/mm3 (0.00-0.23); BASOPHILS PERCENT AUTO 0 % (0-2); EOSINOPHILS ABSOLUTE AUTO 0.27 K/mm3 (0.00-0.68); EOSINOPHILS PERCENT AUTO 2 % (0-6); Hematocrit 40.6 % (33.0-51.0); Hemoglobin 13.1 g/dL (11.5-16.0); IMMATURE GRAN ABSOLUTE AUTO 0.12 K/mm3 (0.00-0.10); IMMATURE GRAN PERCENT AUTO 1 % (0-1); LYMPHOCYTES PERCENT AUTO 17 % (21-46); MONOCYTES ABSOLUTE AUTO 1.35 K/mm3 (0.16-1.47); MONOCYTES PERCENT AUTO 9 % (4-13); Mean Corpuscular HGB 27.8 pg (26.0-34.0); Mean Corpuscular HGB Conc 32.3 g/dL (31.5-36.5); Mean Corpuscular Volume 86 fL (80-100); Mean Platelet Volume 8.4 fL (9.1-12.4); NEUTROPHILS ABSOLUTE AUTO 10.75 K/mm3 (1.96-9.15); NEUTROPHILS PERCENT AUTO 71 % (41-73); Platelet Count 266 K/mm3 (150-400); Red Blood Cell Count 4.71 M/mm3 (3.80-5.20); White Blood Cell Count 15.05 K/mm3 (4.00-11.30)
[2024-07-30] MEDS ORDERED: Ketorolac Tromethamine 15mg Vial IV PRN (06:00)
[2024-07-30 06:29] LABS: Albumin, Blood 3.2 g/dL (3.4-5.0); Albumin/Globulin Ratio 0.7 (0.8-1.8); Bilirubin, Total 0.3 mg/dL (0.1-1.0); Bun/Creatinine Ratio 18.7 (12.0-20.0); Calcium, Blood 9.2 mg/dL (8.5-10.1); Creatinine, Blood 1.34 mg/dL (0.40-1.00); Globulin, Blood 4.7 g/dL (2.2-4.0); Potassium, Blood 4.2 mmol/L (3.5-5.5); Total Protein, Blood 7.9 g/dL (6.4-8.2)
[2024-07-30] MEDS ORDERED: Insulin Human Lispro 100 Units/ML 3ML Syringe SC SCH (07:30)
[2024-07-30] MEDS ORDERED: Docusate Sodium 100 MG Cap PO SCH (09:00)
[2024-07-30] MEDS ORDERED: Lactobacil 2-S.Thermo-Bifido 1 1 Cap PO SCH (09:00)
[2024-07-30] MEDS ORDERED: Metoprolol Succinate 50 MG TABCR PO SCH (09:00)
[2024-07-30] MEDS ORDERED: CefTRIAXone Sodium 1,000 MG in NS 100 ML IV SCH (09:00)
[2024-07-30] MEDS ORDERED: Enoxaparin 40 MG/0.4 ML SYR SC SCH (09:00)
[2024-07-30 09:24] VITALS: BP 119/74
[2024-07-30] MEDS ORDERED: NS 250 ML IV PRN (10:10)
[2024-07-30] MEDS ORDERED: Polyethylene Glycol 3350 17 gm PO SCH (10:35)
--- NOTE | 2024-07-30 11:30 | NUR ---
pt arrived to room 336 via wheelchair from ED, she is able to get to bed indep, a/ox4, pleasant and cooperative with care, follows commands well, denies pain at this time, daughter in attendence, and states her sats went down in ER after iv dilaudid was given, will ask for cont ox, lungs are clear t/o, resp even and unlabored, no cough noted, hrr, no edema noted, ppp+2, cap refill<3sec, vs stable, afebrile, piv to lfa, site is clear and patent, btx4, states chronic consitpation, but did have a small bm last night, voids without diff, skin c/w/d, lawanda johnson, oriented to room layout and call system, call light in reach.
[2024-07-30 12:44] LABS: Source, Urine Clean Catch
[2024-07-30 12:57] LABS: Appearance, Urine Clear (Clear); Bilirubin, Urine Neg (Neg); Blood, Urine Neg (Neg); Color, Urine Yellow (P-Yellow); Glucose Qualitative, Urine 4+ (Neg); Ketones, Urine Neg (Neg); Leukocyte Esterase, Urine Neg (Neg); Nitrite, Urine Neg (Neg); Protein, Urine Neg (Neg); Urobilinogen, Urine NORM (Normal)
--- NOTE | 2024-07-30 14:05 | NUR ---
"Spiritual Care Visit | Pt. request Pt. is awake in bed and welcomes my visit. Spouse is at bedside. Facilitated a life review. Pt. verbalized her journey and specificially how she has recently been diagnosed with cancer. Pt. verbalized that she had come to the ED on Friday but wanted to go home. When the sympotoms returned family members made sure the Pt. was admitted. Considered matter of leila and belief and listened to the Pt. with pastoral empathy and a calming presence. Pt. displayed evidence of awareness and engagement. Pt. verbalized that Previous chronic back pain seems to be under good pain control. Prayed with the pt. Pt. and spouse verbalize gratitude for the spiritual care visit."
[2024-07-30] MEDS ORDERED: HYDROmorphone HCl 2 MG Tab PO PRN (14:50)
[2024-07-30 16:42] VITALS: BP 122/64
--- NOTE | 2024-07-30 18:29 | NUR ---
pt had one dose of dilaudid, states pain was around 7, did not get much relief from that, gave her a dose of toradol, she reports pain completley gone, no further changes this shift. call light in reach.
[2024-07-30 21:00] VITALS: BP 135/98
[2024-07-30] MEDS ORDERED: QUEtiapine Fumarate 100 MG Tab PO SCH (21:00)
[2024-07-30] MEDS ORDERED: Venlafaxine HCl 75 MG CapCR PO SCH (21:00)
[2024-07-30] MEDS ORDERED: Insulin Glargine-Yfgn 100 Unit/mL 3 ML SYR SC SCH ×2 (21:00→21:45)
--- NOTE | 2024-07-30 21:03 | NUR ---
NEW T-ORDER FROM : CHANGE GLARGINE SC BID (0900&2100) FROM 50 UNITS TO 35 UNITS. ENTERED TO [employer], SEE EMAR. PER PT REPORT, SHE TAKES 35UNITS GLARGINE BID, THIS IS HER HOME DOSE. PROVIDER NOTIFIED. NO ADDITIONAL NEW ORDERS AT THIS TIME.
[2024-07-31 04:45] VITALS: BP 116/69
--- NOTE | 2024-07-31 04:46 | NUR ---
SHIFT SUMMARY PT IS A/OX4, VERY PLEASANT AND COOPERATIVE WITH CARE. @HS TEARY. THIS TILE MACHINE OPERATOR USED EMPATHY AND PRAYED WITH THE PT. PT REPORTS SHARP LLQ PAIN, MEDICATED WITH PRN IV DILAUDID WITH GOOD EFFECTIVNESS. CONTINUOUS PULSE OXIMETER IN PLACE, O2 SAT'S 100%. HS BG 153. ORDER WAS CHANGED FROM 50UNITS GLARGINE BID BACK TO 35UNITS N GLARGINE BID (SEE PREVIOUS NOTE). PT REPORTS THAT IS HER HOME DOSAGE. PT RESTING WITHOUT ACUTE DISTRESS FOR MOST OF THE NIGHT, RR EVEN, VSS. BED AT THE LOWEST POSITION, CALL LIGHT W/I REACH.
[2024-07-31 06:29] LABS: BASOPHILS ABSOLUTE AUTO 0.05 K/mm3 (0.00-0.23); BASOPHILS PERCENT AUTO 0 % (0-2); EOSINOPHILS ABSOLUTE AUTO 0.28 K/mm3 (0.00-0.68); EOSINOPHILS PERCENT AUTO 2 % (0-6); Hematocrit 37.7 % (33.0-51.0); Hemoglobin 11.9 g/dL (11.5-16.0); IMMATURE GRAN ABSOLUTE AUTO 0.07 K/mm3 (0.00-0.10); IMMATURE GRAN PERCENT AUTO 1 % (0-1); LYMPHOCYTES ABSOLUTE AUTO 1.74 K/mm3 (0.84-5.20); LYMPHOCYTES PERCENT AUTO 14 % (21-46); MONOCYTES ABSOLUTE AUTO 1.36 K/mm3 (0.16-1.47); MONOCYTES PERCENT AUTO 11 % (4-13); Mean Corpuscular HGB 28.3 pg (26.0-34.0); Mean Corpuscular HGB Conc 31.6 g/dL (31.5-36.5); Mean Corpuscular Volume 90 fL (80-100); Mean Platelet Volume 8.9 fL (9.1-12.4); NEUTROPHILS ABSOLUTE AUTO 9.34 K/mm3 (1.96-9.15); NEUTROPHILS PERCENT AUTO 73 % (41-73); Platelet Count 230 K/mm3 (150-400); RDW Coefficient Variation 13.1 % (11.7-14.2); RDW Standard Deviation 43.1 fL (35.1-46.3); Red Blood Cell Count 4.21 M/mm3 (3.80-5.20); White Blood Cell Count 12.84 K/mm3 (4.00-11.30)
[2024-07-31 06:58] LABS: Albumin, Blood 2.8 g/dL (3.4-5.0); Albumin/Globulin Ratio 0.7 (0.8-1.8); Bilirubin, Total 0.4 mg/dL (0.1-1.0); Bun/Creatinine Ratio 20.4 (12.0-20.0); Calcium, Blood 9.1 mg/dL (8.5-10.1); Creatinine, Blood 1.13 mg/dL (0.40-1.00); Globulin, Blood 4.3 g/dL (2.2-4.0); Potassium, Blood 3.8 mmol/L (3.5-5.5); Total Protein, Blood 7.1 g/dL (6.4-8.2)
[2024-07-31 07:32] VITALS: BP 124/77
[2024-07-31] MEDS ORDERED: Insulin Glargine-Yfgn 100 Unit/mL 3 ML SYR SC SCH (09:00)
[2024-07-31] MEDS ORDERED: OxyCODONE HCL 10 MG TABCR PO SCH (11:48)
[2024-07-31 14:38] VITALS: BP 123/72
--- NOTE | 2024-07-31 17:24 | NUR ---
SHIFT SUMMARY: PATIENT IS AOX4, PLEASANT, COOPERATIVE, AND USES THE CALL LIGHT APPROPRIATELY TO COMMUNICATE NEEDS. SHE AMBULATES INDEPENDENTLY. PATIENT HAS HAD SOME SIDE/BACK PAIN TODAY 6/10; MEDICATED PER THE MAR, PAIN REPORTED 4/10 ON RE-EVALUATION. NO ACUTE EVENTS TODAY. PATIENT IS CURRENTLY SITTING UP IN BED VISITING WITH FAMILY, CALL LIGHT WITHIN REACH.
[2024-07-31 20:29] VITALS: BP 126/82
[2024-07-31] MEDS ORDERED: OxyCODONE HCL 5 MG TAB PO SCH (21:00)
--- NOTE | 2024-08-01 03:38 | NUR ---
SHIFT SUMMARY NO ACUTE EVENTS DURING THIS SHIFT. PT CONTINUES TO HAVE C/O INTERMITTENT PAIN ON LLQ. PT DESCRIBES IT SHARP, 12/10. MEDICATED WITH SCHEDULED HS OXYCONTIN AND PRN IV DILAUDID ORDERED. PT REPORTS EFFECTIVE. CONTINUOUS PULSE OXIMETER IN PLACE, O2 SAT'S 100% ON RA. HS B. BED AT THE LOWEST POSITION, CALL LIGHT W/I REACH. PT IS A/OX4, ABLE TO MAKE HER NEEDS KNOWN AND COOPERATIVE WITH CARE.
[2024-08-01 05:37] VITALS: BP 131/70
[2024-08-01 06:39] LABS: BASOPHILS ABSOLUTE AUTO 0.04 K/mm3 (0.00-0.23); BASOPHILS PERCENT AUTO 0 % (0-2); EOSINOPHILS PERCENT AUTO 3 % (0-6); Hemoglobin 11.3 g/dL (11.5-16.0); IMMATURE GRAN ABSOLUTE AUTO 0.06 K/mm3 (0.00-0.10); IMMATURE GRAN PERCENT AUTO 1 % (0-1); LYMPHOCYTES ABSOLUTE AUTO 2.31 K/mm3 (0.84-5.20); LYMPHOCYTES PERCENT AUTO 22 % (21-46); MONOCYTES ABSOLUTE AUTO 1.15 K/mm3 (0.16-1.47); MONOCYTES PERCENT AUTO 11 % (4-13); Mean Corpuscular HGB 27.4 pg (26.0-34.0); Mean Corpuscular HGB Conc 31.4 g/dL (31.5-36.5); Mean Corpuscular Volume 87 fL (80-100); Mean Platelet Volume 8.9 fL (9.1-12.4); NEUTROPHILS PERCENT AUTO 63 % (41-73); Platelet Count 244 K/mm3 (150-400); RDW Coefficient Variation 13.2 % (11.7-14.2); RDW Standard Deviation 41.7 fL (35.1-46.3); Red Blood Cell Count 4.12 M/mm3 (3.80-5.20); White Blood Cell Count 10.46 K/mm3 (4.00-11.30)
[2024-08-01 06:57] LABS: Albumin, Blood 2.8 g/dL (3.4-5.0); Albumin/Globulin Ratio 0.7 (0.8-1.8); Bilirubin, Total 0.3 mg/dL (0.1-1.0); Bun/Creatinine Ratio 24.1 (12.0-20.0); Creatinine, Blood 1.12 mg/dL (0.40-1.00); Globulin, Blood 4.2 g/dL (2.2-4.0); Potassium, Blood 3.8 mmol/L (3.5-5.5)
[2024-08-01 07:35] VITALS: BP 88/45
[2024-08-01 07:40] VITALS: BP 133/73
[2024-08-01] MEDS ORDERED: DOCU100 PO (11:11)
[2024-08-01] MEDS ORDERED: VISBIOME 112.51 EACH PO (11:12)
[2024-08-01] MEDS ORDERED: AMOCLA875 PO (11:12)
[2024-08-01] MEDS ORDERED: NARCAN4 M1 (11:15)
--- NOTE | 2024-08-01 12:26 | NUR ---
1210- PT LEFT FOR DC IN STABLE CONDITION. PT LEFT WITH ALL BELONGINGS AND WAS PICKED UP BY FAMILY.
== END 2024-08-01 12:33 | disposition home or self-care (01) ==
LOC: ER 00:10 → ERHOLD 00:11 → MEDS 09:17
PROVIDERS: Emergency Medicine; Family Medicine; ADMIT Student in an Organized Health Care Education/Training Program
DX: R19.04 Left lower quadrant abdominal swelling, mass and lump (principal); G89.3 Neoplasm related pain (acute) (chronic); C22.9 Malignant neoplasm of liver, not specified as primary or secondary; E83.42 Hypomagnesemia; N39.0 Urinary tract infection, site not specified; F41.1 Generalized anxiety disorder; E11.9 Type 2 diabetes mellitus without complications; I10 Essential (primary) hypertension; K21.9 Gastro-esophageal reflux disease without esophagitis; E78.5 Hyperlipidemia, unspecified; E66.01 Morbid (severe) obesity due to excess calories; Z68.42 Body mass index [BMI] 45.0-49.9, adult; Z88.8 Allergy status to other drugs, medicaments and biological substances; Z79.891 Long term (current) use of opiate analgesic; Z79.4 Long term (current) use of insulin; Z79.899 Other long term (current) drug therapy
CPT/HCPCS: 36415; 80053; 81003; 82947; 85025; 94762; 96372; 96374; 96375; 96376; 99284-25; A9270; G0378; J0696; J1171; J1650; J1815; J1885; J7030; J7050

== ENCOUNTER 2024-08-04 21:15 | Emergency (ER) | payer OTHER ==
[~2024-08-04] VITALS: Ht 170.2 cm; Wt 133.8 kg
[~2024-08-04 21:15] MED LIST changes: +AMOCLA875 PO; +DOCU100 PO; +NARCAN4 M1; +VISBIOME 112.51 EACH PO
[2024-08-04] MEDS ORDERED: Ketorolac Tromethamine 15mg Vial IV ONE (21:50)
[2024-08-04 22:27] LABS: BASOPHILS ABSOLUTE AUTO 0.08 K/mm3 (0.00-0.23); BASOPHILS PERCENT AUTO 1 % (0-2); EOSINOPHILS PERCENT AUTO 3 % (0-6); Hematocrit 41.6 % (33.0-51.0); Hemoglobin 13.2 g/dL (11.5-16.0); IMMATURE GRAN ABSOLUTE AUTO 0.07 K/mm3 (0.00-0.10); IMMATURE GRAN PERCENT AUTO 1 % (0-1); LYMPHOCYTES ABSOLUTE AUTO 2.35 K/mm3 (0.84-5.20); LYMPHOCYTES PERCENT AUTO 20 % (21-46); MONOCYTES ABSOLUTE AUTO 1.06 K/mm3 (0.16-1.47); MONOCYTES PERCENT AUTO 9 % (4-13); Mean Corpuscular HGB 27.5 pg (26.0-34.0); Mean Corpuscular HGB Conc 31.7 g/dL (31.5-36.5); Mean Corpuscular Volume 87 fL (80-100); Mean Platelet Volume 8.8 fL (9.1-12.4); NEUTROPHILS ABSOLUTE AUTO 8.09 K/mm3 (1.96-9.15); NEUTROPHILS PERCENT AUTO 68 % (41-73); Platelet Count 329 K/mm3 (150-400); RDW Coefficient Variation 12.9 % (11.7-14.2); RDW Standard Deviation 41.1 fL (35.1-46.3); White Blood Cell Count 11.95 K/mm3 (4.00-11.30)
[2024-08-04 22:39] LABS: Albumin, Blood 3.1 g/dL (3.4-5.0); Albumin/Globulin Ratio 0.6 (0.8-1.8); Bilirubin, Total 0.2 mg/dL (0.1-1.0); Calcium, Blood 9.3 mg/dL (8.5-10.1); Creatinine, Blood 1.19 mg/dL (0.40-1.00); Globulin, Blood 5.1 g/dL (2.2-4.0); Total Protein, Blood 8.2 g/dL (6.4-8.2)
[2024-08-04] MEDS ORDERED: Ketorolac Tromethamine 30mg Vial IV ONE (23:05)
[2024-08-04] MEDS ORDERED: HYDROmorphone HCl/Pf 1MG SYR IV ONE (23:05)
[2024-08-04 23:26] VITALS: BP 148/91
[2024-08-04] MEDS ORDERED: Ondansetron HCl 2 MG / ML 2ML Vial IV ONE (23:35)
[2024-08-04] MEDS ORDERED: KETO10 PO (23:58)
[2024-08-05] MEDS ORDERED: BUPR150ER PO (06:46)
== END 2024-08-05 00:03 | disposition home or self-care (01) ==
LOC: ER 21:15
PROVIDERS: Student in an Organized Health Care Education/Training Program
DX: G89.3 Neoplasm related pain (acute) (chronic) (principal); C18.7 Malignant neoplasm of sigmoid colon; C78.7 Secondary malignant neoplasm of liver and intrahepatic bile duct; E11.9 Type 2 diabetes mellitus without complications; I10 Essential (primary) hypertension; K21.9 Gastro-esophageal reflux disease without esophagitis; E78.5 Hyperlipidemia, unspecified; Z88.5 Allergy status to narcotic agent; Z79.4 Long term (current) use of insulin; Z79.899 Other long term (current) drug therapy
CPT/HCPCS: 80053; 83690; 85025; 96374; 96375; 99284-25; J1171; J1885; J2405

== ENCOUNTER 2024-10-24 21:30 | Emergency (ER) | payer OTHER ==
[~2024-10-24] VITALS: Ht 170.2 cm; Wt 136.1 kg
[~2024-10-24 21:30] MED LIST changes: +BUPR150ER PO; +KETO10 PO
[2024-10-24 22:17] LABS: BASOPHILS ABSOLUTE AUTO 0.04 K/mm3 (0.00-0.23); BASOPHILS PERCENT AUTO 1 % (0-2); EOSINOPHILS ABSOLUTE AUTO 0.72 K/mm3 (0.00-0.68); EOSINOPHILS PERCENT AUTO 9 % (0-6); Hematocrit 36.6 % (33.0-51.0); Hemoglobin 12.2 g/dL (11.5-16.0); IMMATURE GRAN ABSOLUTE AUTO 0.02 K/mm3 (0.00-0.10); IMMATURE GRAN PERCENT AUTO 0 % (0-1); LYMPHOCYTES ABSOLUTE AUTO 2.38 K/mm3 (0.84-5.20); LYMPHOCYTES PERCENT AUTO 29 % (21-46); MONOCYTES ABSOLUTE AUTO 0.29 K/mm3 (0.16-1.47); MONOCYTES PERCENT AUTO 4 % (4-13); Mean Corpuscular HGB Conc 33.3 g/dL (31.5-36.5); Mean Corpuscular Volume 87 fL (80-100); NEUTROPHILS ABSOLUTE AUTO 4.73 K/mm3 (1.96-9.15); NEUTROPHILS PERCENT AUTO 58 % (41-73); NRBC ABSOLUTE 0.00 K/mm3 (0.00-0.02); NRBC Auto 0.0 /100 WBC (0.0-0.2); Platelet Count 180 K/mm3 (150-400); RDW Coefficient Variation 22.0 % (11.7-14.2); RDW Standard Deviation 68.0 fL (35.1-46.3)
[2024-10-24 22:37] LABS: Alanine Aminotransfer (ALT/SGP 27.0 U/L (12-78); Albumin, Blood 3.1 g/dL (3.4-5.0); Albumin/Globulin Ratio 0.8 (0.8-1.8); Anion Gap 8.0 mmol/L (3-11); Aspartate Aminotrans (AST/SGOT 27.0 U/L (12-37); Bilirubin, Total 0.4 mg/dL (0.1-1.0); Blood Urea Nitrogen 24.0 mg/dL (8-24); CO2, Blood 26.0 mmol/L (21-32); Calcium, Blood 7.7 mg/dL (8.5-10.1); Chloride, Blood 107.0 mmol/L (98-108); Creatinine, Blood 1.41 mg/dL (0.40-1.00); Globulin, Blood 3.7 g/dL (2.2-4.0); Glucose, Blood 242.0 mg/dL (70-99); Potassium, Blood 4.5 mmol/L (3.5-5.5); Sodium, Blood 136.0 mmol/L (136-145); Total Protein, Blood 6.8 g/dL (6.4-8.2)
[2024-10-24 22:52] LABS: Source, Urine Clean Catch
[2024-10-24 22:54] LABS: Bilirubin, Urine Neg (Neg); Glucose Qualitative, Urine 3+ (Neg); Ketones, Urine Neg (Neg); Leukocyte Esterase, Urine Neg (Neg); Protein, Urine 3+ (Neg); Specific Gravity, Urine 1.015 (1.003-1.022); Urobilinogen, Urine NORM (Normal)
[2024-10-24 23:03] LABS: Color, Urine Yellow (P-Yellow)
[2024-10-24 23:04] LABS: Red Blood Cells, Urine 0-2 /hpf (0-2); White Blood Cells, Urine 0-2 /hpf (0-5)
[2024-10-24] MEDS ORDERED: NS 1,000 ML IV SCH (23:50)
[2024-10-24] MEDS ORDERED: Ondansetron HCl 2 MG / ML 2ML Vial IV ONE (23:50)
[2024-10-25] MEDS ORDERED: Ketorolac Tromethamine 15mg Vial IV ONE (00:30)
[2024-10-25 01:00] VITALS: BP 185/91
[2024-10-25] MEDS ORDERED: AMOCLA875 PO (01:15)
[2024-10-25] MEDS ORDERED: DOXY100 PO (01:15)
[2024-10-25] MEDS ORDERED: ONDA4 PO (01:15)
== END 2024-10-25 01:28 | disposition home or self-care (01) ==
LOC: ER 21:30
PROVIDERS: Emergency Medicine
DX: J18.9 Pneumonia, unspecified organism (principal); K21.9 Gastro-esophageal reflux disease without esophagitis; E11.9 Type 2 diabetes mellitus without complications; I10 Essential (primary) hypertension; E78.5 Hyperlipidemia, unspecified; Z79.899 Other long term (current) drug therapy; Z79.4 Long term (current) use of insulin; Z88.5 Allergy status to narcotic agent
CPT/HCPCS: 36415; 71045; 80053; 81001; 85025; 87040; 96361; 96374; 96375; 99284-25; A9270; J1885; J2405; J7030

== ENCOUNTER 2024-11-16 18:34 | Emergency (ER) | payer OTHER ==
[~2024-11-16] VITALS: Ht 170.2 cm; Wt 136.1 kg
[~2024-11-16 18:34] MED LIST changes: +DOXY100 PO
[2024-11-16] MEDS ORDERED: Ondansetron HCl 2 MG / ML 2ML Vial IV ONE (19:30)
[2024-11-16] MEDS ORDERED: Ketorolac Tromethamine 30mg Vial IV ONE (19:30)
[2024-11-16 19:44] LABS: BASOPHILS ABSOLUTE AUTO 0.07 K/mm3 (0.00-0.23); BASOPHILS PERCENT AUTO 1 % (0-2); EOSINOPHILS ABSOLUTE AUTO 0.01 K/mm3 (0.00-0.68); EOSINOPHILS PERCENT AUTO 0 % (0-6); Hematocrit 40.8 % (33.0-51.0); Hemoglobin 14.2 g/dL (11.5-16.0); IMMATURE GRAN ABSOLUTE AUTO 0.19 K/mm3 (0.00-0.10); IMMATURE GRAN PERCENT AUTO 3 % (0-1); LYMPHOCYTES ABSOLUTE AUTO 0.86 K/mm3 (0.84-5.20); LYMPHOCYTES PERCENT AUTO 13 % (21-46); MONOCYTES ABSOLUTE AUTO 0.07 K/mm3 (0.16-1.47); MONOCYTES PERCENT AUTO 1 % (4-13); Mean Corpuscular HGB Conc 34.8 g/dL (31.5-36.5); Mean Corpuscular Volume 89 fL (80-100); NEUTROPHILS ABSOLUTE AUTO 5.60 K/mm3 (1.96-9.15); NEUTROPHILS PERCENT AUTO 83 % (41-73); NRBC ABSOLUTE 0.00 K/mm3 (0.00-0.02); NRBC Auto 0.0 /100 WBC (0.0-0.2); Platelet Count 146 K/mm3 (150-400); RDW Coefficient Variation 20.8 % (11.7-14.2); RDW Standard Deviation 67.9 fL (35.1-46.3)
[2024-11-16 20:03] LABS: Alanine Aminotransfer (ALT/SGP 30.0 U/L (12-78); Albumin, Blood 3.4 g/dL (3.4-5.0); Albumin/Globulin Ratio 0.8 (0.8-1.8); Anion Gap 13.0 mmol/L (3-11); Aspartate Aminotrans (AST/SGOT 22.0 U/L (12-37); Bilirubin, Total 0.4 mg/dL (0.1-1.0); Blood Urea Nitrogen 34.0 mg/dL (8-24); CO2, Blood 22.0 mmol/L (21-32); Calcium, Blood 9.4 mg/dL (8.5-10.1); Chloride, Blood 105.0 mmol/L (98-108); Creatinine, Blood 1.0 mg/dL (0.40-1.00); Globulin, Blood 4.0 g/dL (2.2-4.0); Glucose, Blood 414.0 mg/dL (70-99); Potassium, Blood 4.7 mmol/L (3.5-5.5); Sodium, Blood 135.0 mmol/L (136-145); Total Protein, Blood 7.4 g/dL (6.4-8.2)
[2024-11-16] MEDS ORDERED: Prochlorperazine Edisylate 10 mg Vial IV ONE (21:25)
[2024-11-16] MEDS ORDERED: HYDROmorphone HCl/Pf 1MG SYR IV ONE (21:25)
[2024-11-16] MEDS ORDERED: NS 1,000 ML IV SCH (21:30)
[2024-11-16] MEDS ORDERED: Robaxin750 MG PO (22:26)
[2024-11-16] MEDS ORDERED: NAPROXEN250 M1 PO (22:26)
[2024-11-16 23:19] VITALS: BP 172/104
== END 2024-11-16 23:21 | disposition home or self-care (01) ==
LOC: ER 18:34
PROVIDERS: Student in an Organized Health Care Education/Training Program
DX: M54.50 Low back pain, unspecified (principal); E86.0 Dehydration; C18.9 Malignant neoplasm of colon, unspecified; E11.9 Type 2 diabetes mellitus without complications; I10 Essential (primary) hypertension; K21.9 Gastro-esophageal reflux disease without esophagitis; E78.5 Hyperlipidemia, unspecified; Z87.442 Personal history of urinary calculi; Z79.899 Other long term (current) drug therapy; Z79.4 Long term (current) use of insulin
CPT/HCPCS: 80053; 85025; A9270; J0780; J1171; J1885; J2405; J7030

== ENCOUNTER → 2024-11-30 | Outpatient (CLI) | payer OTHER ==
[~2024-11-30] MED LIST changes: +NAPROXEN250 M1 PO; +Robaxin750 MG PO
[2024-11-30 14:42] LABS: Bilirubin, Urine Neg (Neg); Color, Urine Yellow (P-Yellow); Glucose Qualitative, Urine 4+ (Neg); Ketones, Urine Neg (Neg); Leukocyte Esterase, Urine Neg (Neg); Protein, Urine 3+ (Neg); Specific Gravity, Urine 1.015 (1.003-1.022); Urobilinogen, Urine NORM (Normal)
[2024-11-30 15:21] LABS: Red Blood Cells, Urine 0-2 /hpf (0-2); White Blood Cells, Urine 0-2 /hpf (0-5)
== END | disposition home or self-care (01) ==
LOC: LAB 14:32 → LAB SHORT 14:32
PROVIDERS: Registered Nurse Oncology
DX: C18.7 Malignant neoplasm of sigmoid colon (principal)
CPT/HCPCS: 81001